=== PATIENT | male | born 1965 | race Hispanic/Latino ===

== ENCOUNTER 2024-02-24 09:44 | Emergency (ER) | payer BC ==
[2024-02-24] MEDS ORDERED: IBUPROFEN 200 MG TAB PO ONE (10:13)
[2024-02-24 10:30] LABS: Absolute Lymphocytes (CBC) 0.5 K/uL (0.7-4.9); Absolute Neutrophil 15.9 K/uL (1.8-8.0); Basophils % 0.1 % (0-1.3); Hemoglobin 12.3 g/dL (13.6-17.9); Lymphocytes % 3.1 % (15.3-44.8); MCH 32.8 pg (27.0-35.0); MCHC 34.3 g/dL (32.0-36.0); MCV 95.6 fL (80-100); MPV 7.4 fL (7.6-11.3); Monocytes % 5.5 % (3.3-12.3); Neutrophils % 91.3 % (41.7-73.7); Platelets 288 thou/uL (152-406); RBC Red Blood Cell Count 3.77 M/uL (4.33-5.43); Red Cell Distribution Width 13.7 % (12.1-15.2)
[2024-02-24 10:34] LABS: Specific Gravity > 1.030 (1.005-1.030); Sqamous Epithelial None Seen /HPF (None Seen); Urine Bacteria None Seen /HPF (<20); Urine Bilirubin NEGATIVE (Negative); Urine Blood Negative (Negative); Urine Clarity Extremely Turbid (Clear); Urine Color Yellow (Yellow); Urine Culture Reflex Order NOT NEEDED; Urine Glucose NEGATIVE (Negative); Urine Ketones NEGATIVE (Negative); Urine Microscopic Reflex YN ORDER UMIC; Urine Mucus 4+ /HPF (None Seen); Urine Nitrite NEGATIVE (Negative); Urine Protein 2+ (Negative); Urine RBC None Seen /HPF (None Seen); Urine Urobilinogen Normal (Normal); Urine WBC <5 /HPF (<5)
[2024-02-24 10:47] LABS: SARS-CoV-2 Antigen CONTROL BLUE LINE VIS/BG OK; SARS-CoV-2 Antigen Rapid Res Negative (Negative)
[2024-02-24 10:51] LABS: Albumin 3.2 g/dL (3.4-5.0); Albumin/Globulin Ratio 0.8 (1.1-1.8); Anion Gap 6.9 mEq/L (5.0-15.0); Globulin 4.1 g/dL (2.3-3.5); Potassium 2.9 mEq/L (3.5-5.1); Protein, Total 7.3 g/dL (6.4-8.2)
--- NOTE | 2024-02-24 11:29 | RAD REPORT ---
EXAMINATION: CT ABDOMEN AND PELVIS WITH CONTRAST CLINICAL INDICATION: Abdominal pain TECHNIQUE: CT abdomen and pelvis was performed, after the administration of 100 cc Isovue-300.. Sagit fly and coronal reconstructions were obtained. One or more of the following dose reduction techniques were used: Automated exposure control, adjustment of the mA and/or kV according to patien t size, and/or iterative reconstruction. Unless otherwise specified, incidental findings do not require dedicated imaging follow-up. [id number]. Oral contrast was not given which limits evaluation of b owel and appendix. COMPARISON: 2014 FINDINGS: The liver, spleen, pancreas, adrenals and kidneys appear unremarkable There is no evidence of diverticulitis Fluid within large and small bowel. Small left and [id number] right inguinal hernias fat. Several gallstones. Gallbladder wall not thickened. : IMPRESSION: Cholelithiasis without evidence of cystitis Fluid within large and small bowel may indicate an enteritis
[2024-02-24 11:55] LABS: Blood Morphology Comment NOT SEEN (NOT SEEN); Platelet Estimate ADEQ; Platelets Clumped FEW PRESENT; White Blood Cell Scan OK (OK)
[2024-02-24] MEDS ORDERED: NA CHLORIDE 0.9% 1,000 ML ONE (12:12)
--- NOTE | 2024-02-24 12:29 | RAD REPORT ---
Procedure: Chest Single View History: Fever Comparison: 2013 The lungs appear clear of acute infiltrate. No significant pleural effusion noted. The heart is mildly enlarged IMPRESSION: No acute abnormality is displayed.
--- NOTE | 2024-02-24 13:22 | EDPHYS ---
Physician Documentation [facility] Name: Pedro Abraham Age: 58 yrs Sex: Male : 1965 Arrival Date: 02/24/2024 Time: 09:44 Bed 20 Private MD: ED Physician Andrey Jennings HPI: 02/23 11:57 This 58 yrs old Male presents to ER via Ambulatory with complaints of Fever. rn 11:57 The patient reports fever, that was measured at 103 degrees Fahrenheit. Onset: The rn symptoms/episode began/occurred 2 day(s) ago. Modifying factors: there are no obvious modifying factors. Associated signs and symptoms: Pertinent positives: abdominal pain, diarrhea, Pertinent negatives: altered mental status, chest pain, skin rash, shortness of breath, sore throat. Severity of symptoms: At their worst the symptoms were mild in the emergency department the symptoms have improved. The patient has experienced a previous episode. Patient reports fever to 103, associated with abdominal pain and diarrhea. Reports has been having increase in belching and heartburn lately. Reports 2 weeks ago felt a sensation in his throat and had difficulty breathing. Seen at [facility] at that time with CT of the neck and abdomen pelvis with no acute findings. States currently no throat or neck pain or difficulty breathing. No productive cough. No chest pain. Does report chills and malaise. No vomiting.. Historical: - Allergies: 10:25 No Known Allergies; kc6 - Home Meds: 10:25 None [Active]; kc6 - PMHx: 10:25 small bowel obstruction; kc6 - PSHx: 10:25 hernia repair; kc6 - Immunization history:: Client reports receiving the 2nd dose of the Covid vaccine. - Infectious Disease History:: Denies. - Social history:: Smoking status: Patient denies any tobacco usage or history of. - Family history:: not pertinent. - Hospitalizations: : No recent hospitalization is reported. ROS: 11:57 Constitutional: Positive for fever and chills Eyes: Negative for injury, pain, redness, rn and discharge, ENT: Negative for injury, pain, and discharge, Neck: Negative for injury, pain, and swelling, Cardiovascular: Negative for chest pain, palpitations, and edema, Respiratory: Negative for shortness of breath, cough, wheezing, and pleuritic chest pain, Abdomen/GI: Positive for abdominal pain with diarrhea Back: Negative for injury and pain, : Negative for injury, bleeding, discharge, and swelling, MS/Extremity: Negative for injury and deformity, Skin: Negative for injury, rash, and discoloration, Neuro: Positive for generalized weakness and malaise Exam: 11:57 Constitutional: This is a well developed, well nourished patient who is awake, alert, rn and in no acute distress. Head/Face: Normocephalic, atraumatic. ENT: Moist mucous membranes, no stridor Neck: Trachea midline, no masses palpated, and no cervical lymphadenopathy. Supple, full range of motion without nuchal rigidity, or vertebral point tenderness. No Meningismus. Cardiovascular: Regular rate and rhythm. No pulse deficits. Respiratory: No increased work of breathing, no retractions or nasal flaring. Abdomen/GI: Soft, mild mid abdominal tenderness without rebound or guarding MS/ Extremity: Pulses equal, no cyanosis. Neurovascular intact. Full, normal range of motion. Equal circumference. Neuro: Awake and alert, GCS 15, oriented to person, place, time, and situation. Cranial nerves II-XII grossly intact. Motor strength 5/5 in all extremities. Sensory grossly intact. Cerebellar exam normal. Vital Signs: 10:04 BP 134 / 81; Pulse 98; Resp 17; Temp 99(O); Pulse Ox 100% on R/A; Weight 86.18 kg; ss Height 5 ft. 2 in. ; Pain 8/10; 11:48 BP 95 / 60; Pulse 70; Resp 16 S; Temp 98.3(O); Pulse Ox 99% on R/A; kc6 12:43 BP 117 / 67; Pulse 65; Resp 16 S; Pulse Ox 97% on R/A; kc6 10:04 Body Mass Index 34.75 (86.18 kg, 157.48 cm) ss 10:04 Pain Scale: Adult ss MDM: 10:00 Patient medically screened. rn 13:20 Differential diagnosis: viral Infection, bacterial infection, URI, bronchitis, rn pneumonia gastroenteritis. Data reviewed: vital signs, nurses notes, lab test result(s), radiologic studies, CT scan, and as a result, I will discharge patient. Counseling: I had a detailed discussion with the patient and/or guardian regarding the historical points, exam findings, and any diagnostic results supporting the discharge/admit diagnosis, lab results, radiology results, the need for outpatient follow up, to return to the emergency department if symptoms worsen or persist or if there are any questions or concerns that arise at home. Special discussion: I discussed with the patient/guardian in detail that at this point there is no indication for admission to the hospital. It is understood, however, that if the symptoms persist or worsen the patient needs to return immediately for re-evaluation. 02/23 10:06 Order name: CBC with Diff; Complete Time: 11:56 rn 02/23 10:06 Order name: CMP; Complete Time: 11:56 rn 02/23 10:06 Order name: Lipase; Complete Time: 11:56 rn 02/23 10:06 Order name: Urinalysis w/ reflexes; Complete Time: 11:56 rn 02/23 10:06 Order name: Flu; Complete Time: 11:56 rn 02/23 10:06 Order name: SARS-COV-2 Antigen Rapid; Complete Time: 11:56 rn 02/23 10:06 Order name: Strep 02/23 10:50 Order name: Throat Culture EDND 02/23 11:56 Order name: CBC Smear Scan; Complete Time: 11:56 EDND 02/23 10:06 Order name: CT Abd/Pelvis - IV Contrast Only; Complete Time: 11:56 rn 02/23 10:06 Order name: XRAY Chest (1 view); Complete Time: 12:56 rn 02/23 10:06 Order name: IV Saline Lock; Complete Time: 10:25 rn 02/23 10:06 Order name: Labs collected and sent; Complete Time: 10:25 rn Administered Medications: 10:25 Drug: Ibuprofen PO 600 mg PO once Route: PO; kc6 12:09 Follow up: Response: No adverse reaction kc6 12:16 Drug: NS 0.9% IV 1000 ml IV at 1000 ml once Route: IV; Rate: 1000 ml; Site: right kc6 antecubital; 13:34 Follow up: Response: No adverse reaction; IV Status: Completed infusion; IV Intake: kc6 1000ml Disposition Summary: 02/24/24 13:21 Discharge Ordered Notes: Location: Home rn Problem: new rn Symptoms: have improved rn Condition: Stable rn Diagnosis - Infectious gastroenteritis and colitis, unspecified rn Followup: rn - With: Private Physician - When: As needed - Reason: Recheck today's complaints, Re-evaluation by your physician Discharge Instructions: - Discharge Summary Sheet rn - Diarrhea, Adult rn Forms: - Medication Reconciliation Form rn - Antibiotic nocturnist physician - Prescription Opioid Use rn - Patient Portal Instructions rn - Leadership Thank You Letter rn Prescriptions: - ondansetron 4 mg Oral Tablet,disintegrating - take 1 tablet ORAL route every 8 hours As needed; 10 tablet; Refills: 0, rn Product Selection Permitted - Augmentin 875-125 mg Oral Tablet - take 1 tablet ORAL route every 12 hours for 10 days; 20 tablet; Refills: 0, rn Product Selection Permitted Signatures: Dispatcher [employer] EDND Andrey Jennings MD MD rn Blanchard, Shelby, RN RN ss Campbell, Kaitlyn, RN RN kc6 Corrections: (The following items were deleted from the chart) 10:07 10:07 Abdomen Pelvis W Con+CT.RAD.BRZ ordered. EDND EDND 12:00 11:57 Constitutional: This is a well developed, well nourished patient who is awake, rn alert, and in no acute distress. Head/Face: Normocephalic, atraumatic. ENT: Moist mucous membranes, no stridor Neck: Trachea midline, no masses palpated, and no cervical lymphadenopathy. Supple, full range of motion without nuchal rigidity, or vertebral point tenderness. No Meningismus. rn
--- NOTE | 2024-02-24 13:22 | ER ---
Nurse's Notes [facility] Name: Pedro Abraham Age: 58 yrs Sex: Male : 1965 Arrival Date: 02/24/2024 Time: 09:44 Bed 20 Private MD: Diagnosis: Infectious gastroenteritis and colitis, unspecified Presentation: 02/23 10:04 Chief complaint: Patient states: Increased belching x 2 weeks, and reports a burp got ss stuck in his throat last night and made him feel like he was unable to breath. Reports similar episode two weeks ago and was seen at a hospital in [place] where he had CT scans and was told everything was negative, given medication to treat hiccups which he reports helps his belching episodes. Pt also reports fever of 103 since last night. Coronavirus screen: Client denies travel out of the [place] in the last 14 days. Ebola Screen: Patient denies exposure to infectious person. Patient denies travel to an Ebola-affected area in the 21 days before illness onset. Initial Sepsis Screen: Does the patient meet any 2 criteria? No. Patient's initial sepsis screen is negative. Does the patient have a suspected source of infection? No. Patient's initial sepsis screen is negative. Risk Assessment: Do you want to hurt yourself or someone else? Patient reports no desire to harm self or others. Onset of symptoms is unknown. 10:04 Method Of Arrival: Ambulatory ss 10:04 Acuity: DANIEL 3 ss Historical: - Allergies: 10:25 No Known Allergies; kc6 - Home Meds: 10:25 None [Active]; kc6 - PMHx: 10:25 small bowel obstruction; kc6 - PSHx: 10:25 hernia repair; kc6 - Immunization history:: Client reports receiving the 2nd dose of the Covid vaccine. - Infectious Disease History:: Denies. - Social history:: Smoking status: Patient denies any tobacco usage or history of. - Family history:: not pertinent. - Hospitalizations: : No recent hospitalization is reported. Screenin:26 [facility] ED Fall Risk Assessment (Adult) History of falling in the last 3 months, kc6 including since admission No falls in past 3 months (0 pts) Confusion or Disorientation No (0 pts) Intoxicated or Sedated No (0 pts) Impaired Gait No (0 pts) Mobility Assist Device Used No (0 pt) Altered Elimination No (0 pt) Score/Fall Risk Level 0 - 2 = Low Risk Oriented to surroundings. Abuse screen: Denies threats or abuse. Denies injuries from another. Nutritional screening: No deficits noted. Tuberculosis screening: No symptoms or risk factors identified. Assessment: 10:26 General: Appears in no apparent distress. comfortable, well groomed, well developed, kc6 Behavior is calm, cooperative, appropriate for age, Reports fever for 12-24 hours. Pain: Denies pain. Neuro: Level of Consciousness is awake, alert, obeys commands, Oriented to person, place, time, situation, Appropriate for age. Cardiovascular: Capillary refill < 3 seconds. Respiratory: Airway is patent Trachea midline Respiratory effort is even, unlabored, Respiratory pattern is regular, symmetrical. GI: Reports diarrhea, indigestion, Patient currently denies abdominal pain, nausea, vomiting. : No signs and/or symptoms were reported regarding the genitourinary system. Urine is clear. EENT: No signs and/or symptoms were reported regarding the EENT system. Derm: No signs and/or symptoms reported regarding the dermatologic system. Skin is intact, is healthy with good turgor, Skin is pink, warm \T\ dry. Musculoskeletal: No signs and/or symptoms reported regarding the musculoskeletal system. Circulation, motion, and sensation intact. Capillary refill < 3 seconds, Range of motion: intact in all extremities. 11:47 Reassessment: Patient appears in no apparent distress at this time. No changes from kc6 previously documented assessment. Patient and/or family updated on plan of care and expected duration. Pain level reassessed. Patient is alert, oriented x 3, equal unlabored respirations, skin warm/dry/pink. 12:43 Reassessment: Patient appears in no apparent distress at this time. No changes from kc6 previously documented assessment. Patient and/or family updated on plan of care and expected duration. Pain level reassessed. Patient is alert, oriented x 3, equal unlabored respirations, skin warm/dry/pink. 13:34 Reassessment: Patient appears in no apparent distress at this time. No changes from kc6 previously documented assessment. Patient and/or family updated on plan of care and expected duration. Pain level reassessed. Patient is alert, oriented x 3, equal unlabored respirations, skin warm/dry/pink. Vital Signs: 10:04 BP 134 / 81; Pulse 98; Resp 17; Temp 99(O); Pulse Ox 100% on R/A; Weight 86.18 kg; ss Height 5 ft. 2 in. ; Pain 8/10; 11:48 BP 95 / 60; Pulse 70; Resp 16 S; Temp 98.3(O); Pulse Ox 99% on R/A; kc6 12:43 BP 117 / 67; Pulse 65; Resp 16 S; Pulse Ox 97% on R/A; kc6 10:04 Body Mass Index 34.75 (86.18 kg, 157.48 cm) ss 10:04 Pain Scale: Adult ss ED Course: 09:49 Patient arrived in ED. mg5 10:00 Andrey Jennings MD is Attending Physician. rn 10:01 Amy Terrell RN is Primary Nurse. kc6 10:04 Arm band placed on right wrist. ss 10:06 Triage completed. ss 10:26 Patient has correct armband on for positive identification. Placed in gown. Bed in low kc6 position. Call light in reach. Side rails up X 1. Pulse ox on. NIBP on. Door closed. Noise minimized. Lights dimmed. Pillow given. 10:26 Inserted saline lock: 20 gauge in right antecubital area, using aseptic technique. kc6 Blood collected. Flushed with 10 mL NS. Patient maintains SpO2 saturation greater than 95% on room air. 11:02 CT Abd/Pelvis - IV Contrast Only In Process Unspecified. EDMS 12:24 XRAY Chest (1 view) In Process Unspecified. EDMS 13:35 No provider procedures requiring assistance completed. IV discontinued, intact, kc6 bleeding controlled, No redness/swelling at site. Pressure dressing applied. Administered Medications: 10:25 Drug: Ibuprofen PO 600 mg PO once Route: PO; kc6 12:09 Follow up: Response: No adverse reaction kc6 12:16 Drug: NS 0.9% IV 1000 ml IV at 1000 ml once Route: IV; Rate: 1000 ml; Site: right kc6 antecubital; 13:34 Follow up: Response: No adverse reaction; IV Status: Completed infusion; IV Intake: kc6 1000ml Medication: 13:35 VIS not applicable for this client. kc6 Intake: 13:34 IV: 1000ml; Total: 1000ml. kc6 Outcome: 13:21 Discharge ordered by . rn 13:35 Discharged to home ambulatory, with significant other, kc6 13:35 Condition: good 13:35 Discharge instructions given to patient, significant other, Instructed on discharge instructions, follow up and referral plans. medication usage, Demonstrated understanding of instructions, follow-up care, medications, Prescriptions given X 2, 13:35 Patient left the ED. kc6 Signatures: Dispatcher [employer] EDMS Andrey Jennings MD MD rn Blanchard, Shelby, RN RN ss Campbell, Kaitlyn, RN RN [id number] Natasha Ngo mg5
[2024-02-25 02:03] VITALS: TEMP 98.3
[2024-02-25 02:05] VITALS: BP 117/67; O2SAT 97
== END 2024-02-24 13:35 | disposition home or self-care (01) ==
LOC: ER 09:44
DX: A09 Infectious gastroenteritis and colitis, unspecified (principal); Z11.52 Encounter for screening for COVID-19
CPT/HCPCS: 87070; 85025; 81001; 36415; 87081; 83690; 80053; 87804 ×2; 74177; 71045; 96360; 99284; 87811; Q9967; J7030

== ENCOUNTER 2025-03-10 16:49 | Emergency (ER) | payer OTHER ==
--- OUTSIDE RECORDS SUMMARY | 2025-03-10 16:57 | XMS REPORT | Continuity of Care Document ---
Author Name Unknown Address [address] [facility]. [address] [place] [address] [facility] Address [address] [facility] [place] [address] Care Team Providers Care Psychology Intern Name Role Phone TEO MULTANI Primary Care Physician CAMILA Cardoso Attending Clinician Unavailable MELISSA RODRIGUEZ Attending Clinician UnavailJOHN Mendez Attending Clinician Unavailable DENIS BRIGGS Attending Clinician Unavailable Osmar DODD, Ayla Maurice Attending Clinician [phone] ROCIO CHONG Attending Clinician Unavailable Henna DODD, Baljit Garduno Attending Clinician [phone] Weston Cali DO Attending Clinician + [phone] Jenifer EDGAR, Cherie Irving Attending Clinician [phone] Christina DODD, Cate Attending Clinician + CATE FITZGERALD Attending Clinician Unavailable LISA DANIEL Attending Clinician Unavailannia Aguirre MD, Joe Salinas Attending Clinician [phone] Carter Anderson MD Attending Clinician [phone] CARTER ANDERSON Attending Clinician Unavailable ATIF TREADWELL Attending Clinician Unavailab enrrique FOFANA, Wili May Attending Clinician [phone] DAYRON DOMINGUEZ Attending Clinician Unavailable Yazmin Pope Attending Clinician [phone] Aga James MD Attending Clinician + [phone] Dayron Dominguez MD Attending Clinician [phone] ALFIE RODRÍGUEZ Attending Clinician Unavailable ALFIE RODRÍGUEZ Attending Clinician Unavailable Alfie Rodríguez MD Attending Clinician [phone] KAL LARIOS Attending Clinician Unavailab LARISSA Hong Attending Clinician Unavailable DR TEO MULTANI Attending Clinician Unavaila maxim [phone] Attending Clinician Unavailable [id number] Attending Clinician Unavailable DR JAMAAL CHURCH Attending Clinician Unaaaron logan [phone] Attending Clinician Unavailable DR SHANIKA ALVARENGA Attending Clinician Unavailable [phone] Attending Clinician Unavailable Kalpesh Attending Clinician Unavailable DR DONA CAMPA Attending Clinician Unavailable Jenifer EDGAR, Cherie Irving Admitting Clinician [phone] CHERIE PERLA Admitting Clinician Unavail able Joe Aguirre MD Admitting Clinician [phone] JOE AGUIRRE Admitting Clinician Unava ilable ATIF TREADWELL Admitting Clinician Unavailab AGA Hankins Admitting Clinician UnavailAga Hernandez MD Admitting Clinician ALFIE RODRÍGUEZ Admitting Clinician Unavailable NERISSA, DR BRUCE Admitting Clinician Israel CHURCH, DR HINTON Admitting Clinician Azael ALVARENGA, DR VOSS Admitting Clinician Unavailable Kalpesh Admitting Clinician Unavailable LOKESH, DR CARCAMO Admitting Clinician Unavailable Payers Payer Name Policy Type Policy Number Effective Date Expirati on Date Source [facility] EXCHANGE OON [id number] 2025 00:00:00 [employer] EXCHANGE OON Exchange [id number] 2025 00:00:00 [facility] Exchange [id number] 2024 00:00:00 [facility] [email or web address] OON [id number] 2024 00:00:[address] [facility] [id number] [place] [employer] (HMO) [id number] 2021 00:00:00 Problems Condition Name Condition Details Condition Category Status Onset Date Resolution Date Last Treatment Date Treating Clinician Comments Source Type 2 diabetes mellitus Type 2 Diabetes Mellitus Problem Active 02-13 00:00: 00 [facility] Gastro-eso phageal reflux disease with esophagiti s Gastro-eso phageal Reflux Disease with Esophagiti s Problem Active 02-13 00:00: 00 [facility] Nausea and vomiting, unspecifie d vomiting type Nausea and vomiting, unspecifie d vomiting type Disease Active 02-05 00:00: 00 Leighann Peña Serum total bilirubin elevated Serum total bilirubin elevated Disease Active 02-04 00:00: 00 Leighann Peña JASPREET (acute kidney injury) JASPREET (acute kidney injury) Disease Active 02-03 00:00: 00 Leighann Peña Dehydratio n Dehydratio n Disease Active 02-03 00:00: 00 Leighann Peña History of esophagiti s History of esophagiti s Disease Active 02-03 00:00: 00 Leighann Peña Chronic gastric ulcer Chronic Gastric Ulcer Problem Active 01-26 00:00: 00 [facility] Ulcer of anastomosi s Ulcer of Anastomosi s Problem Active 01-26 00:00: 00 [facility] Hearing loss of right ear Hearing Loss of Right Ear Problem Active 01-26 00:00: 00 [facility] Prediabete s Prediabete s Problem Active 01-26 00:00: 00 [facility] Increased blood pressure Increased Blood Pressure Problem Active 01-26 00:00: 00 [facility] Mild depression Mild Depression Problem Active 01-26 00:00: 00 [facility] Hypokalemi a Hypokalemi a Disease Active 12-09 00:00: 00 [facility] [place] [facility] Nausea and vomiting Nausea and vomiting Disease Active 12-08 00:00: 00 [facility] Abdominal pain Abdominal pain Disease Active 12-08 00:00: 00 [facility] [place] [facility] Diverticul osis Diverticul osis Disease Active 12-08 00:00: 00 [facility] Intractabl e nausea and vomiting Intractabl e nausea and vomiting Disease Active 12-08 00:00: 00 [facility] Cholelithi asis Cholelithi asis Disease Active 12-08 00:00: 00 [facility] [place] [facility] Gall bladder polyp Gall bladder polyp Disease Active 12-08 00:00: 00 [facility] Gastritis Gastritis Disease Active 12-08 00:00: 00 [facility] [place] [facility] Choking sensation Choking sensation Disease Active 12-08 00:00: 00 [facility] Esophagiti s Esophagiti s Disease Active 12-08 00:00: 00 [facility] Hypokalemi a Hypokalemi a Disease Active 12-03 00:00: 00 [facility] Generalize d abdominal pain Generalize d abdominal pain Disease Active 12-03 00:00: 00 [facility] E44.0 Moderate protein calorie malnutriti on E44.0 Moderate protein calorie malnutriti on Disease Active 8-24 00:00: 00 [facility] Nausea and vomiting, unspecifie d vomiting type Nausea and vomiting, unspecifie d vomiting type Disease Active 01-12 00:00: 00 [facility] Vomiting, unspecifie d vomiting type, unspecifie d whether nausea present Vomiting, unspecifie d vomiting type, unspecifie d whether nausea present Disease Active 01-12 00:00: 00 [facility] Obesity (BMI 30-39.9) Obesity (BMI 30-39.9) Disease Active 01-12 00:00: 00 [facility] Low back strain LUMBAR STRAIN active [id number] SNOMED-CT Problem 2023-01-02 10:59:20 [facility] Urobilinog enuria FINDING OF UROBILINOG EN IN URINE active [id number] SNOMED-CT Problem 2023-01-02 17:49:55 [facility] [id number] PAIN IN RIGHT HIP active [id number] SNOMED-CT Problem 2023-04-22 12:44:45 [facility] Right inguinal pain RIGHT INGUINAL PAIN active [id number] SNOMED-CT Problem 2023-04-22 12:45:10 [facility] History of Past Illness Condition Name Condition Details Condition Category Status Onset Date Resolution Date Last Treatment Date Treating Clinician Comments Source [id number] NONE OF THE TIME 01/02/2023 resolved [id number] SNOMED-CT Problem 2023-01-02 00:00:00 2023-01-02 13:26:20 [facility] Allergies, Adverse Reactions, Alerts Allergy Name Allergy Type Status Severity Reaction(s) Onset Date Inactive Date Treating Clinician Comments Source Food Allergy Active Rash 02-06 00:00: 00 Cod [facility] Iodine Allergy Active Rash 16 00:00: 00 [facility] IODINE DRUG INGREDI Active Rash 7-13 00:00: 00 [facility] SHRIMP DRUG INGREDI Active Rash 13 00:00: 00 [facility] Iodine Propensi ty to adverse reaction s Active Rash 12-03 00:00: 00 [facility] Shrimp Propensi ty to adverse reaction s Active Rash 12-03 00:00: 00 [facility] Shrimp Flavor ([id number]) Allergy to substanc e Active Unknown 8-04 00:00: 00 [facility] No Known Drug Allergie s MA Active UNKNOWN [facility] NO KNOWN ALLERGIE S Drug Class Active [facility] Social History Social Habit Start Date Stop Date Quantity Comments Source Gender identity Daydayomar Gal[facility] Sexual orientation [facility] Alcoholic beverage intake 2025-02-06 00:00:00 2025-02-06 00:00:00 Lifetime non-drinker (finding) [facility] History of Social function 2025-02-05 00:00:00 2025-02-05 00:00:00 [facility] Sex 2024-12-08 17:28:38 2024-12-08 17:28:38 Male (finding) [facility] Tobacco use and exposure 2024-12-08 00:00:00 2024-12-08 00:00:00 Smokeless tobacco non-user [facility] Sex assigned at 1965 00:00:00 1965 00:00:00 [facility] Smoking Status Start Date Stop Date Source Never Smoker [facility] Tobacco smoking consumption unknown [facility] Medications Ordered Medication Name Filled Medication Name Start Date Stop Date Current Medication? Ordering Clinician Indication Dosage Frequency Signature (SIG) Comments Components Source promethazin e (Phenergan) 25 MG suppository promethazin e (Phenergan) 25 MG suppository 9- 00:00: 00 02-26 23:59 :00 No 25mg [id number] 3D Insert 1 suppositor y into the rectum 3 times a day as needed for nausea or vomiting for up to 7 days. Leigahnn Peña ondansetron (Zofran) 4 MG tablet ondansetron (Zofran) 4 MG tablet 02-19 00:00: 00 02-26 23:59 :00 No 4mg Q8H Take 1 tablet by mouth every 8 hours if needed for nausea or vomiting for up to 7 days. Leighann Peña enoxaparin (Lovenox) syringe 40 mg enoxaparin (Lovenox) syringe 40 mg 02-07 09:00: 00 Yes 40mg QD 40 mg, Subcutaneo us, Every 24 hours scheduled, First dose on Wed02/07/25 at 0900, Phase II/On Unit, Caprini Score: 3 (Moderate Risk) , Indication s: VTE Prophylaxi s Leighann [facility] sodium chloride (NS) 0.9 % flush 10 mL sodium chloride (NS) 0.9 % flush 10 mL 02-06 15:45: 00 Yes 10mL Q12H 10 mL, Intravenou s, Every 12 hours, First dose on Wed02/06/25 at 1545, Phase II/On Unit, Administer at least once every 12 hours Leighann Galicia [facility] sodium chloride (NS) 0.9 % flush 10 mL sodium chloride (NS) 0.9 % flush 10 mL 02-06 15:36: 31 Yes 10mL Leighann [facility] acetaZOLAMI DE (Diamox) injection 250 mg acetaZOLAMI DE (Diamox) injection 250 mg 02-06 11:15: 00 02-06 11:04 :00 No 250mg 250 mg, Intravenou s, Once, On Wed02/06/25 at 1115, For 1 dose, Recovery (only) Leighann Galicia Epic fentaNYL (Sublimaze) injection 50 mcg fentaNYL (Sublimaze) injection 50 mcg 02-06 10:36: 19 02-06 12:18 :32 No 50ug 50 mcg, Intravenou s, Every 5 min PRN, severe pain (7-10), Starting on Wed02/06/25 at 1036, For 4 doses, Recovery (only), Hold for respirator y rate of 8 or less. Leighann Galicia Epic morphine PF injection 2 mg morphine PF injection 2 mg 02-06 10:36: 19 02-06 12:18 :32 No 2mg 2 mg, Intravenou s, Every 5 min PRN, moderate pain (4-6), Starting on Wed02/06/25 at 1036, For 5 doses, Recovery (only), Hold for respirator y rate of 8 or less. Leighann Peña hydrALAZINE injection 10 mg hydrALAZINE injection 10 mg 02-06 10:36: 19 02-06 12:18 :32 No 10mg 10 mg, Intravenou s, Every 20 min PRN, high blood pressure, Systolic blood pressure greater than 160 mmHg and/or Diastolic blood pressure greater than 90 mmHg. Hold is Heart Rate greater than 100 beats per minute., Starting on Wed02/06/25 at 1036, For 2 doses, Recovery (only) Leighann Peña famotidine (Pepcid) tablet 20 mg famotidine (Pepcid) tablet 20 mg 02-06 07:45: 00 02-06 07:57 :00 No 20mg 20 mg, Oral, Once, On Wed02/06/25 at 0745, For 1 dose, Preprocedu re, DO NOT GIVE IF PATIENT HAS RECEIVED H2 ANTAGONIST /FAMOTIDIN E IN THE PAST SIX HOURS. Anesthesia Pre-op Leighann [facility] Epic acetaminoph en (Tylenol) tablet 1,000 mg acetaminoph en (Tylenol) tablet 1,000 mg 02-06 07:45: 00 02-06 07:57 :00 No 1000mg 1,000 mg, Oral, Once, On Wed02/06/25 at 0745, For 1 dose, Preprocedu re, DO NOT GIVE IF PATIENT HAS RECEIVED ACETAMINOP HEN IN THE PAST SIX HOURS. Maybe administer ed with midazolam. Max acetaminop hen from all sources = 4,000 mg in 24 hours. Anesthesia Pre-op Leighann Galicia Epic pantoprazol e (ProtoNix) 40 MG EC tablet pantoprazol e (ProtoNix) 40 MG EC tablet 02-06 00:00: 00 03-09 23:59 :00 No 40mg Q.5D Take 1 tablet by mouth in the morning and 1 tablet in the evening. Leighann Peña ondansetron (Zofran) 4 MG tablet ondansetron (Zofran) 4 MG tablet 02-06 00:00: 00 02-17 23:59 :00 No 4mg Q8H Take 1 tablet by mouth every 8 hours if needed for nausea or vomiting for up to 10 days. Leighann Peña docusate sodium (Colace) 100 MG capsule docusate sodium (Colace) 100 MG capsule 02-06 00:00: 00 02-17 23:59 :00 No 100mg Q.5D Take 1 capsule by mouth in the morning and 1 capsule in the evening. Do all this for 10 days. Leighann Peña traMADol (Ultram) 50 MG tablet traMADol (Ultram) 50 MG tablet 02-06 00:00: 00 02-13 23:59 :00 No [id number] 50mg Q6H Take 1 tablet by mouth every 6 hours if needed for moderate pain (4-6) Leighann Peña pantoprazol e 40 mg in sodium chloride (PF) 0.9 % 10 mL pantoprazol e 40 mg in sodium chloride (PF) 0.9 % 10 mL 02-06 00:00: 00 02-06 00:00 :00 No 40mg Q.5D Infuse 40 mg over 2 minutes into a venous catheter in the morning and 40 mg before bedtime. Do all this for 10 days. Leighann Peña sincalide (Kinevac) injection 1.5 mcg sincalide (Kinevac) injection 1.5 mcg 02-05 15:53: 31 02-05 15:15 :00 No .02ug/k g 1.5 mcg (rounded from 1.496 mcg = 0.02 mcg/kg ?74.8 kg Order-spec [facility] weight), Intravenou s, Once in imaging, Starting on Wed02/05/25 at 1553, For 1 dose, IV push over 30-60 seconds or infuse via syringe pump over 30 minutes. For pancreatic testing, infuse over 30 minutes. Leighann Peña technetium Tc-99m mebrofenin (Choletec) radio-isoto pe injection 6 millicurie technetium Tc-99m mebrofenin (Choletec) radio-isoto pe injection 6 millicurie 02-05 14:00: 00 02-05 14:00 :00 No 6mCi 6 millicurie , Intravenou s, Once, On Wed02/05/25 at 1400, For 1 dose Leighann Peña potassium chloride CR (Klor-Con M20) ER tablet 40 mEq potassium chloride CR (Klor-Con M20) ER tablet 40 mEq 02-04 11:45: 00 02-04 11:58 :00 No 40meq 40 mEq, Oral, Once, On Wed02/04/25 at 1145, For 1 dose, For patients able to take medication s orally or via feeding tube >/= 14 Lithuanian, may dissolve each 20 mEq tablet in 4 oz of water. Allow about 2 minutes for the tablets to disintegra te. Stir before giving to prepare slurry and administer . Please exclude patient's with feeding tube less than 14 Lithuanian (Dobhoff, J-tube, etc) and pediatric and patients Do not crush or chew. Leighann Peña metoclopram christen (Reglan) injection 10 mg metoclopram christen (Reglan) injection 10 mg 02-04 11:30: 00 Yes 10mg 10 mg, Intravenou s, 3 times daily before meals, First dose on Wed02/04/25 at 1130 Leighann Peña ondansetron (Zofran) injection 8 mg ondansetron (Zofran) injection 8 mg 02-04 11:30: 00 Yes 8mg 8 mg, Intravenou s, 3 times daily before meals, First dose on Wed02/04/25 at 1130 Leighann Peña potassium chloride IVPB 10 mEq potassium chloride IVPB 10 mEq 02-04 07:15: 00 02-04 11:14 :00 No 10meq Q1H 10 mEq, Intravenou s, at 100 mL/hr, Administer over 1 Hours, Every 1 hour, First dose on Wed02/04/25 at 0715, For 4 doses, Total dose: 40 mEq. Leighann Peña pantoprazol e (ProtoNix) 40 mg in sodium chloride (PF) 0.9 % 10 mL IVP pantoprazol e (ProtoNix) 40 mg in sodium chloride (PF) 0.9 % 10 mL IVP 02-03 21:00: 00 Yes 40mg Q.5D 40 mg, Intravenou s, Every 12 hours scheduled, First dose on 02/03/25 at 2100, Until Discontinu ed Leighann Peña metoclopram christen (Reglan) injection 10 mg metoclopram christen (Reglan) injection 10 mg 02-03 16:30: 00 Yes 10mg 10 mg, Intravenou s, 3 times daily before meals, First dose on Wed02/03/25 at 1630 Leighann Peña escitalopra m (Lexapro) tablet 10 mg escitalopra m (Lexapro) tablet 10 mg 02-03 15:50: 00 Yes 10mg QD 10 mg, Oral, Daily, First dose on 02/03/25 at 1550 Leighann Peña alum & mag hydroxide-s imeth (Mylanta) 200-200-20 MG/5ML oral suspension 30 mL alum & mag hydroxide-s imeth (Mylanta) 200-200-20 MG/5ML oral suspension 30 mL 02-03 15:15: 00 02-03 15:25 :00 No 30mL 30 mL, Oral, Once, On 02/03/25 at 1515, For 1 dose Leighann Peña lidocaine (Xylocaine) 2 % mouth solution 15 mL lidocaine (Xylocaine) 2 % mouth solution 15 mL 02-03 15:15: 00 02-03 15:25 :00 No 15mL 15 mL, Oral, Once, On 02/03/25 at 1515, For 1 dose Leighann Peña hydrALAZINE injection 10 mg hydrALAZINE injection 10 mg 02-03 15:02: 45 Yes 10mg Q6H 10 mg, Intravenou s, Every 6 hours PRN, high blood pressure, SBP>170, Starting on 02/03/25 at 1502 Leighann Peña traMADol (Ultram) tablet 50 mg traMADol (Ultram) tablet 50 mg 02-03 15:02: 45 Yes 50mg Q6H 50 mg, Oral, Every 6 hours PRN, moderate pain (4-6), Starting on 02/03/25 at 1502, Max of 300 mg daily for patients > 75 years of age. Leighann Peña ondansetron (Zofran) injection 4 mg ondansetron (Zofran) injection 4 mg 02-03 15:02: 45 Yes 4mg Q6H 4 mg, Intravenou s, Every 6 hours PRN, nausea, vomiting, Starting on 02/03/25 at 1502 Leighann Peña acetaminoph en (Tylenol) tablet 650 mg acetaminoph en (Tylenol) tablet 650 mg 02-03 15:02: 45 Yes 650mg Q6H 650 mg, Oral, Every 6 hours PRN, mild pain (1-3), fever, Starting on 02/03/25 at 1502, Max acetaminop hen = 4000mg/day (4gm/day) [facility] sodium chloride 0.9 % infusion sodium chloride 0.9 % infusion 02-03 15:00: 00 02-06 20:06 :18 No 100mL/h 100 mL/hr, Intravenou s, Continuous , Starting on Wed02/03/25 at 1500 Leighann Peña enoxaparin (Lovenox) syringe 40 mg enoxaparin (Lovenox) syringe 40 mg 02-03 15:00: 00 02-06 15:41 :26 No 40mg QD 40 mg, Subcutaneo us, Every 24 hours scheduled, First dose on Wed02/03/25 at 1500, KEVIN Score: 4+ (High Risk), Indication s: VTE Prophylaxi s Leighann [facility] sodium chloride 0.9 % bolus 500 mL [id number] 02-03 12:40: 00 02-03 18:04 :00 No 500mL 500 mL, Intravenou s, at 1,000 mL/hr, Administer over 30 Minutes, Once, On 02/03/25 at 1240, For 1 dose [facility] ondansetron (Zofran) injection 4 mg ondansetron (Zofran) injection 4 mg 02-03 12:10: 00 02-03 12:11 :00 No 4mg 4 mg, Intravenou s, Once, On 02/03/25 at 1210, For 1 dose [facility] iohexol (OMNIPaque) 350 MG/ML injection 75 mL iohexol (OMNIPaque) 350 MG/ML injection 75 mL 02-03 12:03: 52 02-03 11:54 :00 No 75mL 75 mL, Intravenou s, Once in imaging, Starting on 02/03/25 at 1203, For 1 dose [facility] potassium chloride IVPB 10 mEq potassium chloride IVPB 10 mEq 02-03 11:50: 00 02-03 16:55 :00 No 10meq Q1H 10 mEq, Intravenou s, at 100 mL/hr, Administer over 1 Hours, Every 1 hour, First dose on 02/03/25 at 1150, For 4 doses, Central-li ne infusion highly recommende d for infusions >10 mEq/hour Memkatie [facility] Epic magnesium sulfate in D5W IVPB 1 g magnesium sulfate in D5W IVPB 1 g 02-03 11:50: 00 02-03 13:17 :00 No 1g 1 g, Intravenou s, at 100 mL/hr, Administer over 1 Hours, Once, On 02/03/25 at 1150, For 1 dose Leighann Galicia Epic ondansetron (Zofran) injection 4 mg ondansetron (Zofran) injection 4 mg 02-03 10:45: 00 02-03 10:58 :00 No 4mg 4 mg, Intravenou s, Once, On 02/03/25 at 1045, For 1 dose, Administer IVP. Leighann Gal[facility] famotidine (Pepcid) injection 20 mg [id number] 9-13 10:45: 00 02-03 11:00 :00 No 20mg 20 mg, Intravenou s, Administer over 2 Minutes, Once, On 02/03/25 at 1045, For 1 dose Leighann Peña sodium chloride 0.9 % bolus 1,000 mL [id number] 02-03 10:45: 00 02-03 11:58 :00 No 1000mL 1,000 mL, Intravenou s, at 1,000 mL/hr, Administer over 1 Hours, Once, On 02/03/25 at 1045, For 1 dose Leighann Peña escitalopra m (Lexapro) 10 MG tablet escitalopra m (Lexapro) 10 MG tablet -05 00:00: 00 Yes 10mg QD Take 10 mg by mouth 1 time each day. Leighann Peña baclofen (Lioresal) 5 MG tablet baclofen (Lioresal) 5 MG tablet 12-10 00:00: 00 01-09 23:59 :00 No 5mg Take 1 tablet by mouth at bedtime. Leighann Peña benzocaine- menthol (Chlorasept ic) 6-10 MG lozenge benzocaine- menthol (Chlorasept ic) 6-10 MG lozenge 12-10 00:00: 00 01-09 23:59 :00 No 1{lozen ge} Dissolve 1 lozenge in the mouth every 2 hours if needed for sore throat. Leighann Peña benzocaine- menthol (Chlorasept ic) 6-10 MG lozenge 1 lozenge benzocaine- menthol (Chlorasept ic) 6-10 MG lozenge 1 lozenge 12-09 23:10: 53 Yes 1{lozen ge} 1 lozenge, Mouth/Thro at, Every 2 hour PRN, sore throat, Starting on 12/09/24 at 2310 Leighann Peña barium sulfate (Barosperse ) 60 % suspension 150 mL barium sulfate (Barosperse ) 60 % suspension 150 mL 12-09 11:52: 34 12-09 11:54 :00 No 150mL 150 mL, Oral, Once in imaging, Starting on 12/09/24 at 1152, For 1 dose Leighann Peña enoxaparin (Lovenox) syringe 40 mg enoxaparin (Lovenox) syringe 40 mg 12-09 11:45: 00 Yes 40mg QD 40 mg, Subcutaneo us, Daily, First dose on Wed12/09/24 at 1145 Leighann Peña Barium Sulfate 98 % reconstitut ed suspension 150 mL Barium Sulfate 98 % reconstitut ed suspension 150 mL 12-09 11:00: 00 12-09 11:55 :00 No 150mL 150 mL, Oral, Once, On Wed12/09/24 at 1100, For 1 dose Leighann Peña pantoprazol e (ProtoNix) 40 mg in sodium chloride (PF) 0.9 % 10 mL IVP pantoprazol e (ProtoNix) 40 mg in sodium chloride (PF) 0.9 % 10 mL IVP 12-09 09:00: 00 Yes 40mg Q.5D 40 mg, Intravenou s, Every 12 hours scheduled, First dose (after last modificati on) on Wed12/09/24 at 0900, Until Discontinu ed Leighann Peña potassium chloride IVPB 10 mEq potassium chloride IVPB 10 mEq 12-09 08:15: 00 12-09 14:09 :00 No 10meq Q1H 10 mEq, Intravenou s, at 100 mL/hr, Administer over 1 Hours, Every 1 hour, First dose on Wed12/09/24 at 0815, For 4 doses, Total dose: 40 mEq. Leighann Peña baclofen (Lioresal) tablet 5 mg baclofen (Lioresal) tablet 5 mg 12-08 23:45: 00 Yes 5mg 5 mg, Oral, Nightly, First dose on Wed12/08/24 at 2345 Leighann Peña sucralfate (Carafate) 1 g tablet sucralfate (Carafate) 1 g tablet 12-08 23:35: 07 Yes 1g Q.5D Take 1 g by mouth in the morning and 1 g in the evening. Take after meals. Leighann Peña dicyclomine (Bentyl) capsule 20 mg dicyclomine (Bentyl) capsule 20 mg 12-08 23:34: 55 Yes 20mg Q.25D 20 mg, Oral, 4 times daily PRN, Abdominal pain, Starting on Wed12/08/24 at 2334 Leighann Peña chlorproMAZ INE (Thorazine) tablet 12.5 mg chlorproMAZ INE (Thorazine) tablet 12.5 mg 12-08 23:34: 51 Yes 12.5mg Leighann Peña dextrose 5 % and sodium chloride 0.9 % infusion dextrose 5 % and sodium chloride 0.9 % infusion 12-08 22:05: 00 Yes 100mL/h 100 mL/hr, Intravenou s, Continuous , Starting on Wed12/08/24 at 2205 Leighann Peña docusate sodium (Colace) capsule 100 mg docusate sodium (Colace) capsule 100 mg 12-08 22:05: 00 Yes 100mg Q.5D 100 mg, Oral, 2 times daily, First dose on Wed12/08/24 at 2205, Stool softener. Hold for loose stools. Leighann Peña sodium chloride (NS) 0.9 % flush 10 mL sodium chloride (NS) 0.9 % flush 10 mL 12-08 22:05: 00 Yes 10mL Q12H 10 mL, Intravenou s, Every 12 hours, First dose on Wed12/08/24 at 2205, Administer at least once every 12 hours Leighann Peña HYDROcodone -acetaminop hen ([place]) 5-325 MG per tablet 1 tablet HYDROcodone -acetaminop hen ([place]) 5-325 MG per tablet 1 tablet 12-08 22:03: 24 Yes 1{tbl} Q6H Leighann Peña morphine PF injection 2 mg morphine PF injection 2 mg 12-08 22:03: 24 Yes 2mg Q4H Leighann Peña melatonin tablet 3 mg melatonin tablet 3 mg 12-08 22:03: 24 Yes 3mg QD Leighann Peña acetaminoph en (Tylenol) tablet 650 mg acetaminoph en (Tylenol) tablet 650 mg 12-08 22:03: 24 Yes 650mg Q6H Leighann Peña glucagon injection 1 mg glucagon injection 1 mg 12-08 22:03: 23 Yes 1mg Leighann Gal[facility] Epic dextrose 50 % solution 25 g dextrose 50 % solution 25 g 12-08 22:03: 23 Yes 25g Leighann Galicia Epic dextrose 50 % solution 12.5 g dextrose 50 % solution 12.5 g 12-08 22:03: 23 Yes 12.5g Leighann Gal[facility] Epic ondansetron (Zofran) injection 4 mg ondansetron (Zofran) injection 4 mg 12-08 22:03: 23 Yes 4mg Q8H Leighann Galicia Epic polyethylen e glycol (PEG) 3350 (Miralax) packet 17 g polyethylen e glycol (PEG) 3350 (Miralax) packet 17 g 12-08 22:03: 23 Yes 112 17g Q24H Leighann Galicia Epic naloxone (Narcan) injection 0.04 mg naloxone (Narcan) injection 0.04 mg 12-08 22:03: 23 Yes .04mg Leighann Galicia Epic sodium chloride 0.9 % infusion 250 mL sodium chloride 0.9 % infusion 250 mL 12-08 22:03: 23 Yes 250mL Leighann Galicia Epic sodium chloride (NS) 0.9 % flush 10 mL sodium chloride (NS) 0.9 % flush 10 mL 12-08 22:03: 23 Yes 10mL 10 mL, Intravenou s, As needed, line care, Line Flush, Starting on Wed12/08/24 at 2203 Leighann ashley Grayson Epic iohexol (OMNIPaque) 350 MG/ML injection 85 mL iohexol (OMNIPaque) 350 MG/ML injection 85 mL 12-08 19:53: 53 12-08 19:54 :00 No 85mL 85 mL, Intravenou s, Once in imaging, Starting on Wed12/08/24 at 1953, For 1 dose Leighann Galicia Epic sodium chloride 0.9 % bolus 1,000 mL [id number] 12-08 18:25: 00 12-08 21:43 :00 No 1000mL 1,000 mL, Intravenou s, at 2,000 mL/hr, Administer over 30 Minutes, Once, On Wed12/08/24 at 1825, For 1 dose Leighann Peña morphine PF injection 4 mg morphine PF injection 4 mg 12-08 17:55: 00 12-08 20:03 :00 No 4mg 4 mg, Intravenou s, Once, On Wed12/08/24 at 1755, For 1 dose Leighann Galicia Epic ondansetron (Zofran) injection 4 mg ondansetron (Zofran) injection 4 mg 12-08 17:55: 00 12-08 19:56 :00 No 4mg 4 mg, Intravenou s, Once, On Wed12/08/24 at 1755, For 1 dose, Administer IVP. Leighann Galicia Epic famotidine (PF) (Pepcid) injection 40 mg famotidine (PF) (Pepcid) injection 40 mg 12-08 17:55: 00 12-08 19:59 :00 No 40mg 40 mg, Intravenou s, Administer over 2 Minutes, Once, On Wed12/08/24 at 1755, For 1 dose, Administer over at least 2 minutes Leighann Peña sodium chloride (NS) 0.9 % flush 10 mL sodium chloride (NS) 0.9 % flush 10 mL 12-08 17:49: 19 Yes 10mL [Order 1 Start] Name: Insert peripheral IV Signed Summary: Once, On Wed12/08/24 at 1750, For 1 occurrence [Order 1 End] [Order 2 Start] Name: Saline lock IV Signed Summary: Once, On Wed12/08/24 at 1750, For 1 occurrence [Order 2 End] [Order 3 Start] Name: sodium chloride (NS) 0.9 % flush 10 mL Signed Summary: 10 mL, Intravenou s, As needed, line care, Starting on Wed12/08/24 at 1749 [Order 3 End] Leighann Peña pantoprazol e (ProtoNix) 40 MG EC tablet pantoprazol e (ProtoNix) 40 MG EC tablet 12-04 00:00: 00 02-06 00:00 :00 No 40mg Take 40 mg by mouth in the morning. Take before meals. Leighann Galicia Epic KCL (KLOR-CON M20) tablet 40 mEq 12-03 19:00: 00 12-03 19:09 :00 No 40meq 40 mEq, Oral, ONCE, 1 dose, On Wed12/03/24 at 1400, Routine [facility] iopamidol (ISOVUE 370-500 mL) injection 80 mL 12-03 17:54: 00 12-03 17:54 :00 No [id number] 80mL 80 mL, Intravenou s, ONCE, 1 dose, On Wed12/03/24 at 1315, Routine [facility] ondansetron (ZOFRAN (PF)) injection 4 mg 12-03 17:30: 00 12-03 17:32 :00 No 4mg 4 mg, Slow IV Push, ONCE, 1 dose, On Wed12/03/24 at 1230, Administer over 2-5 Minutes, 2 mL [facility] maalox/diph enhydrAMINE :lidocaine2 %viscous 1:1:1: suspension (COMPOUNDED ) 12-03 17:30: 00 12-03 17:31 :00 No 15mL 15 mL, Oral, ONCE, 1 dose, On Wed12/03/24 at 1230, Routine [facility] famotidine (PEPCID (PF)) 20 mg in NaCl 0.9% (NS) 5 mL IV push 12-03 17:30: 00 12-03 17:32 :00 No 20mg 20 mg, Intravenou s, ONCE, 1 dose, On Wed12/03/24 at 1230, Administer over 2 Minutes, 5 mL [facility] it[facility] dicyclomine (Bentyl) 20 MG tablet dicyclomine (Bentyl) 20 MG tablet 12-03 00:00: 00 02-03 00:00 :00 No 20mg Q.25D Take 20 mg by mouth 4 times a day as needed (Abdominal pain). Leighann Galicia Epic baclofen (Lioresal) 5 MG tablet baclofen (Lioresal) 5 MG tablet 5-25 00:00: 00 12-10 00:00 :00 No 5mg QD Take 5 mg by mouth 1 time each day. Leighann Peña ondansetron (Zofran) 4 MG tablet ondansetron (Zofran) 4 MG tablet 2023-05 1- 00:00: 00 02-06 00:00 :00 No 1{tbl} [id number] 3D Take 1 tablet by mouth every 6 hours during the day. Leighann Peña chlorproMAZ INE (Thorazine) 10 MG tablet chlorproMAZ INE (Thorazine) 10 MG tablet 2023-05 014 00:00: 00 02-03 00:00 :00 No 10mg Take 10 mg by mouth if needed for nausea (hiccups). Leighann Peña KCL (KLOR-CON M20) tablet 40 mEq 02-14 18:15: 02-14 18:15 :00 No 40meq 40 mEq, Oral, ONCE, 1 dose, On Wed02/15/24 at 1315, [facility] iopamidol (ISOVUE 370-500 mL) injection 80 mL 02-14 17:15: 00 02-14 17:15 :00 No [id number] 80mL 80 mL, Intravenou s, ONCE, 1 dose, On Wed02/15/24 at 1215, Routine [facility] NaCl 0.9% (NS) bolus infusion 1,000 mL 02-14 16:00: 00 02-14 17:05 :00 No 1000mL at 999 mL/hr, 1,000 mL, IV Infusion, ONCE, 1 dose, On Wed02/15/24 at 1100, [facility] ondansetron (ZOFRAN (PF)) injection 4 mg 02-14 15:30: 00 02-14 15:37 :00 No 4mg 4 mg, Slow IV Push, ONCE, 1 dose, On Wed02/15/24 at 1030, [facility] chlorproMAZ INE (THORAZINE) tablet 10 mg 01-14 07:41: 43 Yes 10mg 10 mg, Oral, Q6HPRN, Starting on 01/15/24 at 0241, Until Discontinu ed, Routine, Hiccups [facility] chlorproMAZ INE 10 mg tablet 01-14 00:00: 00 Yes [id number] 10mg Take 1 tablet by mouth every 6 (six) hours as needed for Hiccups. [facility] metoclopram christen HCl (REGLAN) tablet 10 mg 01-13 22:37: 19 01-14 07:41 :58 No 10mg 10 mg, Oral, Q8HPRN, Starting on Wed01/14/24 at 1737, Until 01/15/24 at 0241, Routine, Gastroesop hageal reflux, Hiccups [facility] diatrizoate marcus-diatriz oat sod (GASTROGRAF IN) 66-10 % oral solution 120 mL 01-13 17:45: 00 01-13 17:45 :00 No [id number] 120mL 120 mL, Oral, ONCE, 1 dose, On Wed01/14/24 at 1245, Routine [facility] acetaminoph en (OFIRMEV) IV piggyback 1,000 mg 01-13 16:30: 00 01-13 18:03 :00 No 1000mg 1,000 mg, IV Piggyback, at 400 mL/hr Administer over 15 Minutes, ONCE, 1 dose, On Wed01/14/24 at 1130, Routine, Is the patient strict NPO and unable to tolerate oral medication s? Yes [facility] D5W-LR WITH ADDITIVES 01-13 15:45: 00 Yes IV Infusion, CONTINUOUS , Starting on Wed01/14/24 at 1045, Until Discontinu ed, 1,000 mL, at 100 mL/hr [facility] D5W-LR WITH ADDITIVES 01-13 14:45: 00 01-13 15:36 :51 No IV Infusion, CONTINUOUS , Starting on Wed01/14/24 at 0945, Until Wed01/14/24 at 1036, 1,000 mL, at 75 mL/hr [facility] enoxaparin (LOVENOX) injection 40 mg 01-12 22:00: 00 Yes [id number] 40mg 40 mg, Subcutaneo us, DAILY, First dose on Wed01/13/24 at 1700, Until Discontinu ed, Routine Univers [facility] lactated ringers IV infusion 1,000 mL 01-12 20:30: 00 01-13 13:39 :32 No [id number] 1000mL at 125 mL/hr, 1,000 mL, IV Infusion, CONTINUOUS , Starting on Wed01/13/24 at 1530, Until Wed01/14/24 at 0839, Routine [facility] potassium chloride in water (KCL) 20 mEq/100 mL RTU IVPB 20 mEq 01-12 20:15: 00 01-13 01:33 :00 No [id number] 20meq 20 mEq, IV Piggyback, ONCE, 1 dose, On Wed01/13/24 at 1515, 100 mL [facility] pantoprazol e (PROTONIX) injection 40 mg 01-12 19:15: 00 Yes [id number] 40mg 40 mg, Slow IV Push, Q24H, First dose on Wed01/13/24 at 1415, Until Discontinu ed [facility] NaCl 0.9% (NS) bolus infusion 1,000 mL 01-12 18:15: 00 01-12 23:24 :17 No [id number] 1000mL at 999 mL/hr, 1,000 mL, IV Infusion, ONCE, 1 dose, On Wed01/13/24 at 1315, KYM [facility] ondansetron (ZOFRAN (PF)) injection 4 mg 01-12 17:59: 57 Yes [id number] 4mg 4 mg, Slow IV Push, Q6HPRN, Starting on Wed01/13/24 at 1259, Until Discontinu ed, Routine, Nausea and Vomiting (N/V) [facility] morpHINE (4 mg/mL) injection 4 mg 01-12 17:59: 56 01-13 15:36 :57 No [id number] 4mg 4 mg, Slow IV Push, Q4HPRN, Starting on Wed01/13/24 at 1259, Until Wed01/14/24 at 1036, Routine, Pain (scale 7-10) [facility] ketorolac (TORADOL) injection 15 mg 01-12 17:15: 00 01-12 17:26 :00 No [id number] 15mg 15 mg, Slow IV Push, ONCE, 1 dose, On Wed01/13/24 at 1215, [facility] pantoprazol e (PROTONIX) injection 40 mg 01-12 16:30: 00 01-12 17:28 :00 No [id number] 40mg 40 mg, Slow IV Push, ONCE, 1 dose, On Wed01/13/24 at 1130 [facility] iopamidol (ISOVUE 370-500 mL) injection 80 mL 01-12 16:15: 00 01-12 15:21 :00 No [id number] 80mL 80 mL, Intravenou s, ONCE, 1 dose, On Wed01/13/24 at 1115, Routine [facility] metoclopram christen HCl (REGLAN) injection 10 mg 01-12 15:45: 00 01-12 17:25 :00 No [id number] 10mg 10 mg, Slow IV Push, ONCE, 1 dose, On Wed01/13/24 at 1045, KYM [facility] ondansetron (ZOFRAN (PF)) injection 4 mg 01-12 15:30: 00 01-12 17:23 :00 No [id number] 4mg 4 mg, Slow IV Push, ONCE, 1 dose, On Wed01/13/24 at 1030, [facility] NaCl 0.9% (NS) bolus infusion 1,000 mL 01-12 15:30: 00 01-12 18:56 :00 No [id number] 1000mL at 999 mL/hr, 1,000 mL, IV Infusion, ONCE, 1 dose, On Yasmeen 01/13/24 at 1030[facility]hen[facility] (BENADRYL) injection 25 mg 12-26 20:00: 00 12-26 20:00 :00 No 25mg 25 mg, Slow IV Push, ONCE, 1 dose, On Wed12/27/23 at 1500, STAT [facility] metoclopram christen HCl (REGLAN) injection 10 mg 12-26 20:00: 00 12-26 20:01 :00 No 10mg 10 mg, Slow IV Push, ONCE, 1 dose, On Wed12/27/23 at 1500, [facility] chlorproMAZ INE (THORAZINE) 25 mg in NaCl 0.9% (NS) 500 mL IV infusion 12-26 17:45: 00 12-26 19:14 :00 No [id number] 25mg 25 mg, IV Piggyback, ONCE, 1 dose, On Wed12/27/23 at 1245, 500 mL [facility] magnesium sulfate in water 2 gram/50 mL (4 %) infusion 2 g 12-26 17:15: 00 12-26 17:46 :00 No 2g 2 g, IV Piggyback, Administer over 60 Minutes, ONCE, 1 dose, On Wed12/27/23 at 1215, Routine [facility] ketorolac (TORADOL) injection 15 mg 12-26 16:30: 00 12-26 16:49 :00 No 15mg 15 mg, Slow IV Push, ONCE, 1 dose, On Wed12/27/23 at 1130, Routine [facility] NaCl 0.9% (NS) bolus infusion 1,000 mL 12-26 16:30: 00 12-26 18:43 :00 No 1000mL at 999 mL/hr, 1,000 mL, IV Infusion, ONCE, 1 dose, On Wed12/27/23 at 1130, [facility] famotidine (PEPCID (PF)) injection 20 mg 12-26 15:45: 00 12-26 16:49 :00 No 20mg 20 mg, Slow IV Push, ONCE, 1 dose, On Wed12/27/23 at 1045, [facility] ondansetron (ZOFRAN (PF)) injection 4 mg 12-26 15:45: 00 12-26 16:48 :00 No 4mg 4 mg, Slow IV Push, ONCE, 1 dose, On Wed12/27/23 at 1045, [facility] metoclopram christen HCl 10 mg tablet 12-26 00:00: 00 Yes [id number] 10mg Take 1 tablet by mouth every 8 (eight) hours as needed (hiccups/v omiting). [facility] CL-KETOROLA C 60MG/2ML VIAL (TORADOL) 2022-05 00:00: 00 04-22 00:00 :00 No 60mg CL-KETOROL AC 60MG/2ML VIAL (TORADOL) 04/22/2023 04/22/2023 IM OPTIONS X1 60 MG [id number] RxNorm 60 MG IM OPTIONS ONE TIME [facility] ciprofloxac in (CIPRO) 500 mg tablet 02-13 00:00: 00 12-26 00:00 :00 No 500mg Take 1 Tab by mouth 2 (two) times daily. [facility] famotidine 40 mg tablet TAKE 1 TABLET BY MOUTH AT BEDTIME famotidine 40 mg tablet TAKE 1 TABLET BY MOUTH AT BEDTIME No famotidine 40 mg tablet TAKE 1 TABLET BY MOUTH AT BEDTIME [facility] ondansetron 4 mg disintegrat ing tablet DISSOLVE 1 TABLET IN MOUTH EVERY 4 HOURS NEEDED FOR NAUSEA AND VOMITING ondansetron 4 mg disintegrat ing tablet DISSOLVE 1 TABLET IN MOUTH EVERY 4 HOURS NEEDED FOR NAUSEA AND VOMITING No ondansetro n 4 mg disintegra ting tablet DISSOLVE 1 TABLET IN MOUTH EVERY 4 HOURS NEEDED FOR NAUSEA AND VOMITING [facility] baclofen 5 mg tablet Take 1 tablet every day by oral route. baclofen 5 mg tablet Take 1 tablet every day by oral route. No 1 Q1D baclofen 5 mg tablet Take 1 tablet every day [facility]. [facility] esc[facility] 10 mg tablet Take 1 tablet every day by oral route for 30 days. escitalopra m 10 mg tablet Take 1 tablet every day by oral route for 30 days. No 1 Q1D escitalopr am 10 mg tablet Take 1 tablet every day by oral route for 30 days. [facility] tramadol 50 mg tablet Take 1 tablet every 6 hours by oral route. tramadol 50 mg tablet Take 1 tablet every 6 hours by oral route. No 1 Q6H tramadol 50 mg tablet Take 1 tablet every 6 hours by oral route. [facility] Voquezna 20 mg tablet Take 1 tablet every day by oral route for 30 days. Voquezna 20 mg tablet Take 1 tablet every day by oral route for 30 days. No 1 Q1D Voquezna 20 mg tablet Take 1 tablet every day by oral route for 30 days. [facility] famotidine 40 mg tablet Take 1 tablet every day by oral route at bedtime. famotidine 40 mg tablet Take 1 tablet every day by oral route at bedtime. No 1 Q1D famotidine 40 mg tablet Take 1 tablet every day by oral route at bedtime. [facility] promethazin e 12.5 mg tablet TAKE 1 TABLET BY MOUTH EVERY 8 HOURS NEEDED FOR NAUSEA AND VOMITING FOR 7 DAYS promethazin e 12.5 mg tablet TAKE 1 TABLET BY MOUTH EVERY 8 HOURS NEEDED FOR NAUSEA AND VOMITING FOR 7 DAYS No promethazi ne 12.5 mg tablet TAKE 1 TABLET BY MOUTH EVERY 8 HOURS NEEDED FOR NAUSEA AND VOMITING FOR 7 DAYS [facility] ondansetron 8 mg disintegrat ing tablet Place 1 tablet every 8 hours by translingua l route. ondansetron 8 mg disintegrat ing tablet Place 1 tablet every 8 hours by translingua l route. No 1 Q8H ondansetro n 8 mg disintegra ting tablet Place 1 tablet every 8 hours by translingu al route. [facility] pantoprazol e 40 mg tablet,jeanine yed release Take 1 tablet every day by oral route. pantoprazol e 40 mg tablet,jeanine yed release Take 1 tablet every day by oral route. No 1 Q1D pantoprazo le 40 mg tablet,del ayed release Take 1 tablet every day by oral route. [facility] Immunizations Ordered Immunization Name Filled Immunization Name Date Status Comments Source influenza, unspecified formulation influenza, unspecified formulation Unknown Completed [facility] Vital Signs Vital Name Observation Time Observation Value Comments S o[facility]gar Systolic blood pressure 2025-02-19 13:56:00 121 mm[Hg] [facility] Diastolic blood pressure 2025-02-19 13:56:00 75 mm[Hg] [facility] Heart rate 2025-02-19 13:56:00 71 /min [facility] Body temperature 2025-02-19 13:56:00 36.89 Sandy [facility] Respiratory rate 2025-02-19 13:56:00 18 /min [facility] Body height 2025-02-19 13:56:00 157.5 cm [facility] Body weight 2025-02-19 13:56:00 78.019 kg [facility] BMI 2025-02-19 13:56:00 31.46 kg/m2 [facility] Oxygen saturation in Arterial blood by Pulse oximetry 2025-02-19 13:56:00 98 /min [facility] BP Diastolic 2025-02-13 00:00:00 78 mm[Hg] [facility] Weight 2025-02-13 00:00:00 173.4 [lb_av] [place] [facility] BMI (Body Mass Index) 2025-02-13 00:00:00 31.7 kg/m2 [place] [facility] BP Systolic 2025-02-13 00:00:00 154 mm[Hg] Richard lia [facility] Height 2025-02-13 00:00:00 62 [in_i] Idrisag orda [facility] Height 2025-02-09 16:59:00 157.812588 cm [facility] 2025-02-09 16:59:00 81.275140 kg [facility] BMI (Body Mass Index) 2025-02-09 16:59:00 32.9 kg/m2 [facility] Heart rate 2025-02-07 12:57:03 63 /min [facility] [place] [facility] Respiratory rate 2025-02-07 12:57:03 16 /min [facility] Oxygen saturation in Arterial blood by Pulse oximetry 2025-02-07 12:57:03 98 /min [facility] Body temperature 2025-02-07 12:56:23 36.94 Sandy [facility] Systolic blood pressure 2025-02-07 12:56:21 115 mm[Hg] [facility] Diastolic blood pressure 2025-02-07 12:56:21 58 mm[Hg] [facility] Body height 2025-02-03 10:41:00 154.9 cm [facility] Body weight 2025-02-03 10:41:00 75.8 kg [facility] BMI 2025-02-03 10:41:00 31.57 kg/m2 [facility] Heart rate 2025-02-07 12:57:03 63 /min [facility] [place] [facility] Respiratory rate 2025-02-07 12:57:03 16 /min [facility] Oxygen saturation in Arterial blood by Pulse oximetry 2025-02-07 12:57:03 98 /min [facility] Body temperature 2025-02-07 12:56:23 36.94 Sandy [facility] Systolic blood pressure 2025-02-07 12:56:21 115 mm[Hg] [facility] Diastolic blood pressure 2025-02-07 12:56:21 58 mm[Hg] [facility] Body height 2025-02-03 10:41:00 154.9 [facility] Body weight 2025-02-03 10:41:00 75.8 kg [facility] BMI 2025-02-03 10:41:00 31.57 kg/m2 [facility] BMI (Body Mass Index) 2025-01-26 00:00:00 33 kg/m2 [facility] BP Diastolic 2025-01-26 00:00:00 53 mm[Hg] [facility] Height 2025-01-26 00:00:00 62 [in_i] [facility] Body Weight 2025-01-26 00:00:00 2888 [oz_av] [facility] BP Systolic 2025-01-26 00:00:00 149 mm[Hg] [facility] Heart rate 2024-12-10 07:27:03 63 /min [facility] [place] [facility] Respiratory rate 2024-12-10 07:27:03 18 /min [facility] Oxygen saturation in Arterial blood by Pulse oximetry 2024-12-10 07:27:03 98 /min [facility] Body temperature 2024-12-10 07:26:51 36.56 [facility] Systolic blood pressure 2024-12-10 07:26:29 117 mm[Hg] [facility] Diastolic blood pressure 2024-12-10 07:26:29 65 mm[Hg] [facility] Body height 2024-12-08 17:34:00 167.6 cm [facility] Body weight 2024-12-08 17:34:00 82.4 kg [facility] BMI 2024-12-08 17:34:00 29.32 kg/m2 [facility] [place] [facility] Heart rate 2024-12-10 07:27:03 63 /min [facility] Respiratory rate 2024-12-10 07:27:03 18 /min [facility] Epic Oxygen saturation in Arterial blood by Pulse oximetry 2024-12-10 07:27:03 98 /min [facility] Body temperature 2024-12-10 07:26:51 36.56 [facility] Systolic blood pressure 2024-12-10 07:26:29 117 mm[Hg] [facility] Diastolic blood pressure 2024-12-10 07:26:29 65 mm[Hg] [facility] Body height 2024-12-08 17:34:00 167.6 cm [facility] [place] [facility] Body weight 2024-12-08 17:34:00 82.4 kg [facility] [place] [facility] BMI 2024-12-08 17:34:00 29.32 kg/m2 [facility] [place] [facility] Systolic blood pressure 2024-12-03 20:18:30 138 mm[Hg] [facility] Diastolic blood pressure 2024-12-03 20:18:30 94 mm[Hg] [facility] Heart rate 2024-12-03 20:18:30 61 /min [facility] Body temperature 2024-12-03 20:18:30 35.56 Sandy [facility] Respiratory rate 2024-12-03 20:18:30 16 /min [facility] Oxygen saturation in Arterial blood by Pulse oximetry 2024-12-03 20:18:30 98 /min [facility] Body height 2024-12-03 17:06:16 157.5 cm [facility] Body weight 2024-12-03 17:06:16 81.647 kg [facility] BMI 2024-12-03 17:06:16 32.92 kg/m2 [facility] Systolic blood pressure 2024-02-15 19:43:00 142 mm[Hg] [facility] Diastolic blood pressure 2024-02-15 19:43:00 100 mm[Hg] [facility] Heart rate 2024-02-15 19:43:00 60 /min [facility] Body temperature 2024-02-15 19:43:00 36.61 Sandy [facility] Respiratory rate 2024-02-15 19:43:00 18 /min [facility] Oxygen saturation in Arterial blood by Pulse oximetry 2024-02-15 19:43:00 100 /min [facility] Body height 2024-02-15 15:03:00 157.5 cm [facility] Body weight 2024-02-15 15:03:00 86.183 kg [facility] BMI 2024-02-15 15:03:00 34.75 kg/m2 [facility] Systolic blood pressure 2024-01-15 16:30:00 114 mm[Hg] [facility] Diastolic blood pressure 2024-01-15 16:30:00 68 mm[Hg] [facility] Heart rate 2024-01-15 16:30:00 71 /min [facility] Body temperature 2024-01-15 16:30:00 37 [place] [facility] Respiratory rate 2024-01-15 16:30:00 20 /min [facility] Oxygen saturation in Arterial blood by Pulse oximetry 2024-01-15 16:30:00 97 /min [facility] Body weight 2024-01-14 17:00:00 83.915 kg [facility] BMI 2024-01-14 17:00:00 30.79 kg/m2 [facility] Body height 2024-01-13 14:22:00 165.1 cm [facility] Systolic blood pressure 2023-12-27 20:40:00 136 mm[Hg] [facility] Diastolic blood pressure 2023-12-27 20:40:00 74 mm[Hg] [facility] Heart rate 2023-12-27 20:40:00 68 /min [facility] Respiratory rate 2023-12-27 20:40:00 18 /min [facility] Oxygen saturation in Arterial blood by Pulse oximetry 2023-12-27 20:40:00 98 /min [facility] Body temperature 2023-12-27 15:28:00 37 [facility] Body height 2023-12-27 15:26:00 160 cm [facility] Body weight 2023-12-27 15:26:00 82.555 kg [facility] BMI 2023-12-27 15:26:00 32.24 kg/m2 [facility] Weight 2023-12-26 08:20:00 86.320453 kg [facility] BMI (Body Mass Index) 2023-12-26 08:20:00 34.8 kg/m2 [facility] Height 2023-12-26 08:20:[address] [facility] Diastolic Blood Pressure 2023-04-22 13:13:00 78 mm[Hg] Body Height 2023-04-22 13:13:00 157.4800 cm Oxygen Saturation 2023-04-22 13:13:00 95 % Heart Rate 2023-04-22 13:13:00 88.0 /min Respiratory Rate 2023-04-22 13:13:00 16 /min Body Temperature 2023-04-22 13:13:00 37.4 Sandy Body Weight 2023-04-22 13:13:00 86.18 kg Body Mass Index 2023-04-22 13:13:00 34.75 kg/m2 Systolic Blood Pressure 2023-04-22 13:13:00 137 mm[Hg] Diastolic Blood Pressure 2023-04-22 13:13:00 78 mm[Hg] Body Height 2023-04-22 13:13:00 157.4800 cm Oxygen Saturation 2023-04-22 13:13:00 95 % Heart Rate 2023-04-22 13:13:00 88.0 /min Respiratory Rate 2023-04-22 13:13:00 16 /min Body Temperature 2023-04-22 13:13:00 37.4 Sandy Body Weight 2023-04-22 13:13:00 86.18 kg Body Mass Index 2023-04-22 13:13:00 34.75 kg/m2 Systolic Blood Pressure 2023-04-22 13:13:00 137 mm[Hg] Procedures Procedure Date / Time Performed Performing Clinician Source COMPREHENSIVE METABOLIC PANEL 2025-02-19 13:43:00 Ayla Prasad [facility] AMYLASE LEVEL 2025-02-19 13:43:00 Ayla Prasad [facility] LACTIC ACID LEVEL 2025-02-19 13:43:00 Ayla Prasad [facility] LIPASE LEVEL 2025-02-19 13:43:00 Ayla Prasad [facility] COMPLETE BLOOD COUNT W/DIFF AND PLATELET 2025-02-19 13:43:00 Ayla Prasad [facility] [place] esophagus barium swallow 2025-02-19 00:00:[address] [facility] [address] abdomen pelvis wo IV contrast 2025-02-19 00:00:00 [facility] Amylase Level 2025-02-19 00:00:[address] [facility] 2025-02-19 00:00:00 [facility] COMPREHENSIVE METABOLIC PANEL 2025-02-07 02:53:00 Cate Fitzgerald [facility] COMPLETE BLOOD COUNT W/DIFF AND PLATELET 2025-02-07 02:53:00 Cate Fitzgerald [facility] COMPLETE BLOOD COUNT 2025-02-07 02:53:00 Jennifer Fitzgerald ohpramod [facility] AUTOMATED DIFFERENTIAL 2025-02-07 02:53:00 Cate Fitzgerald [facility] [place] LAPAROSCOPY SURG CHOLECYSTECTOMY 2025-02-06 09:05:00 Denis Briggs [facility] COMPREHENSIVE METABOLIC PANEL 2025-02-06 03:48:00 JeniferChreie longoria [facility] COMPLETE BLOOD COUNT W/DIFF AND PLATELET 2025-02-06 03:48:00 Jenifer, Cherie [facility] COMPLETE BLOOD COUNT 2025-02-06 03:48:00 Kamilah Perla [facility] AUTOMATED DIFFERENTIAL 2025-02-06 03:48:00 [place] yudy [facility] [place] HEPATOBILIARY W PHARMA INTERVENTION 2025-02-05 15:54:00 Cherie Perla [facility] COMPREHENSIVE METABOLIC PANEL 2025-02-05 03:41:00 Jenifer, Cherie [facility] COMPLETE BLOOD COUNT W/DIFF AND PLATELET 2025-02-05 03:41:00 Jenifer, Cherie [facility] COMPLETE BLOOD COUNT 2025-02-05 03:41:00 Kamilah Perla [facility] AUTOMATED DIFFERENTIAL 2025-02-05 03:41:00 [place] yudy [facility] MRI ABDOMEN WO IV CONTRAST 2025-02-04 16:00:21 Morro Robledo [facility] EGD 2025-02-04 11:03:00 Moror Robledo [facility] TISSUE EXAM 2025-02-04 10:54:00 Emeterio Robledoim Marcial [facility] COMPREHENSIVE METABOLIC PANEL 2025-02-04 03:51:00 Karely, Weston Williamson [facility] MAGNESIUM LEVEL 2025-02-04 03:51:00 Karely, Weston Williamosn [facility] PHOSPHORUS LEVEL 2025-02-04 03:51:00 Karely, Weston Williamson [facility] COMPLETE BLOOD COUNT W/DIFF AND PLATELET 2025-02-04 03:51:00 Weston Cali [facility] COMPLETE BLOOD COUNT 2025-02-04 03:51:00 Weston Cali [facility] AUTOMATED DIFFERENTIAL 2025-02-04 03:51:00 Weston Cali [facility] US GALLBLADDER 2025-02-03 13:18:00 Baljit Aguillon [facility] CT ABDOMEN PELVIS W IV CONTRAST 2025-02-03 12:01:06 Baljit Aguillon [facility] COMPREHENSIVE METABOLIC PANEL 2025-02-03 10:50:00 Baljit Aguillon [facility] LIPASE LEVEL 2025-02-03 10:50:00 Baljit Aguillon [facility] COMPLETE BLOOD COUNT W/DIFF AND PLATELET 2025-02-03 10:50:00 Baljit Aguillon [facility] PROTIME-INR 2025-02-03 10:50:00 Baljit Aguillon [facility] PTT 2025-02-03 10:50:00 Baljit Aguillon [facility] UA WITH CULTURE IF INDICATED 2025-02-03 10:50:00 Baljit Aguillon [facility] COMPLETE BLOOD COUNT 2025-02-03 10:50:00 Baljit Aguillon [facility] AUTOMATED DIFFERENTIAL 2025-02-03 10:50:00 Baljit Aguillon [facility] Complete Blood Count w/Diff and Platelet 2024-12-14 00:00:00 [facility] Comprehensive Metabolic Panel 2024-12-14 00:00:00 [facility] COMPREHENSIVE METABOLIC PANEL 2024-12-10 05:47:00 Carter Anderson [facility] HEMOGLOBIN A1C 2024-12-10 05:47:00 Carter Anderson [facility] COMPLETE BLOOD COUNT W/DIFF AND PLATELET 2024-12-10 05:47:00 Carter Anderson [facility] THYROID STIMULATING HORMONE W/ REFLEX FREE T4 2024-12-10 05:47:00 Carter Anderson [facility] COMPLETE BLOOD COUNT 2024-12-10 05:47:00 Carter Anderson [facility] AUTOMATED DIFFERENTIAL 2024-12-10 05:47:00 Carter Anderson [facility] POC GLUCOSE UNSOLICITED RESULTS 2024-12-09 11:48:00 Carter Anderson [facility] [place] ESOPHAGUS BARIUM SWALLOW 2024-12-09 11:46:00 Venkat Morro Ceja [facility] BASIC METABOLIC PANEL 2024-12-09 06:39:00 Joe Albarran [facility] LIPID PANEL W/CALCULATED LDL 2024-12-09 06:39:00 Joe Aguirre [facility] ETHANOL LEVEL 2024-12-09 06:39:00 Melissa Aguirre [facility] HEMOGLOBIN A1C 2024-12-09 06:39:00 Melissa Aguirre [facility] LACTIC ACID LEVEL 2024-12-09 06:39:00 Nat Aguirre [facility] THYROID STIMULATING HORMONE 2024-12-09 06:39:00 Joe Aguirre [facility] COMPLETE BLOOD COUNT W/DIFF AND PLATELET 2024-12-09 06:39:00 Joe Aguirre [facility] PROCALCITONIN LEVEL 2024-12-09 06:39:00 Joe Aguirre [facility] COMPLETE BLOOD COUNT 2024-12-09 06:39:00 Joe Aguirre [facility] AUTOMATED DIFFERENTIAL 2024-12-09 06:39:00 Joe Marc am [facility] POC GLUCOSE UNSOLICITED RESULTS 2024-12-09 06:24:00 Joe Aguirre [facility] ECG 12-LEAD 2024-12-08 20:10:27 [facility] PELVIS W IV CONTRAST 2024-12-08 19:53:07 Carlene Olivier [facility] DRUG SCREEN URINE (8 DRUGS) 2024-12-08 18:55:00 Joe Aguirre [facility] UA WITH CULTURE IF INDICATED 2024-12-08 18:55:00 Carlene Olivier [facility] US GALLBLADDER 2024-12-08 18:41:49 [facility] 2024-12-08 18:36:00 Carlene Olivier [facility] HEPATIC FUNCTION PANEL 2024-12-08 18:36:00 Charline Carlene Sudha [facility] LIPASE LEVEL 2024-12-08 18:36:00 Charline [facility]gar [facility] COMPLETE BLOOD COUNT W/DIFF AND PLATELET 2024-12-08 18:36:00 Charline Carlene Haley [facility] TROPONIN I HIGH SENSITIVITY (SINGLE ORDER) 2024-12-08 18:36:00 Carlene Olivier [facility] COMPLETE BLOOD COUNT 2024-12-08 18:36:00 Carlene Olivier Ashley samayoa [facility] AUTOMATED DIFFERENTIAL 2024-12-08 18:36:00 Carlene Olivier [facility] XR ABDOMEN 1 VIEW 2024-12-08 18:11:00 Carlene Olivier [facility] URINALYSIS 2024-12-03 18:41:00 Atif Treadwell [facility] CT ABDOMEN PELVIS W CONTRAST 2024-12-03 18:03:00 Atif Treadwell [facility] LIPASE 2024-12-03 17:26:00 Atif Treadwell [facility] COMP. METABOLIC PANEL (94478) 2024-12-03 17:26:00 Atif Treadwell [facility] CBC WITH DIFF 2024-12-03 17:26:00 Atif Treadwell [facility] RAPID STREP SCREEN FOR GROUP A 2024-02-15 19:12:00 Wili Garcia [facility] CT SOFT TISSUE NECK WO CONTRAST 2024-02-15 18:54:00 Wili Garcia [facility] CT ABDOMEN PELVIS W CONTRAST 2024-02-15 16:24:47 Wili Garcia [facility] LIPASE 2024-02-15 15:21:00 Wili Garcia [facility] TROPONIN I 2024-02-15 15:21:00 Wili Garcia [facility] COMP. METABOLIC PANEL ([id number]) 2024-02-15 15:21:00 Wili Garcia [facility] CBC WITH DIFF 2024-02-15 15:21:00 [facility] PHOSPHORUS 2024-01-15 09:08:00 Leela Singer [facility] MAGNESIUM 2024-01-15 09:08:00 Leela Singer [facility] BASIC METABOLIC PANEL (NA, K, CL, CO2, GLUCOSE, BUN, CREATININE, CA) 2024-01-15 09:08:00 Leela Singer [facility] CBC WITH DIFF 2024-01-15 09:08:00 [facility] [place] SMALL BOWEL SERIES 2024-01-14 20:14:36 Jason Espinoza [facility] POCT GLUCOSE (AUTOMATED) 2024-01-14 16:53:00 Dayron Dominguez [facility] PHOSPHORUS 2024-01-14 11:16:00 Leela Singer [facility] MAGNESIUM 2024-01-14 11:16:00 Leela Singer [facility] BASIC METABOLIC PANEL (NA, K, CL, CO2, GLUCOSE, BUN, CREATININE, CA) 2024-01-14 11:16:00 Leela Singer [facility] CBC WITH DIFF 2024-01-14 11:16:00 Leela Singer [facility] XR ABDOMEN 1 VW 2024-01-13 18:31:00 [facility] ABDOMEN PELVIS W CONTRAST 2024-01-13 15:26:47 Yusra Yazmin [facility] LIPASE 2024-01-13 14:36:00 Yusra [facility] TROPONIN I 2024-01-13 14:36:00 Yusra [facility] COMP. METABOLIC PANEL ([id number]) 2024-01-13 14:36:00 Yusra Yazmin [facility] CBC WITH DIFF 2024-01-13 14:36:00 Yazmin Meng [facility] URINALYSIS 2023-12-27 19:55:00 Alfie Rodríguez [facility] LIPASE 2023-12-27 16:43:00 Alfie Rodríguez [facility] MAGNESIUM 2023-12-27 16:43:00 Alfie Rodríguez [facility] TROPONIN I 2023-12-27 16:43:00 Alfie Rodríguez [facility] HEPATIC FUNCTION PANEL (40811) (ALB,T.PRO,BILI T,BU/BC,ALT,AST,ALK PHOS) 2023-12-27 16:43:00 Alfie Rodríguez [facility] BASIC METABOLIC PANEL (NA, K, CL, CO2, GLUCOSE, BUN, CREATININE, CA) 2023-12-27 16:43:00 Alfie Rodríguez [facility] CBC WITH DIFF 2023-12-27 16:43:00 Alfie Rodríguez [facility] Colostomy [facility] opal Health Outreach Program Hernia Repair [facility] Health Outreach Program Cholecystectomy Titus Ep iscopal [facility] Outreach Program Tissue Examination [facility] Oxygen Therapy - Patient Type: Adult; Device: Nasal Cannula; SpO2 Goals (select one): General: > or equal to 92%; Follow Respiratory Pathway: Yes [facility] [employer] POCT Glucose [facility] ECG 12 lead [facility] Plan of Care Planned Activity Planned Date Details Comments Source Encounters Start Date/Time End Date/Time Encounter Type Admission Type Attending Clinicians Care Facility Care Department Encounter ID Source 2024-10-10 08:00:00 Inpatient CAMILA [facility] [id number] [facility] 2024-10-06 08:00:00 Inpatient CAMILA [facility] [id number] [facility] 2024-04-21 11:11:00 Inpatient MELISSA GOMEZ [facility] [id number] [facility] 2023-09-06 00:00:00 Inpatient JOHN [facility] [id number] [facility] 2025-02-26 11:30:00 2025-02-26 11:30:00 Outpatient DENIS BRIGGS [facility] [id number] [facility] 2025-02-19 13:30:00 2025-02-19 14:06:55 Office Visit Jc Ayla Prasad [facility] [id number] 350.1.13.70 8.2.7.2.686 [id number] [facility] 2025-02-13 00:00:00 2025-02-13 00:00:00 Carlos Luna MD: [id number], [place] [address] , Ph. [facility] [id number] [facility] 2025-02-09 16:58:00 2025-02-09 18:32:00 Emergency ER ROCIO CHONG [facility] [id number] [facility] 2025-02-09 16:58:00 2025-02-09 18:32:00 Departed Emergency Room [facility] [id number] [facility] 2025-02-03 10:55:00 2025-02-07 13:50:00 Hospital Encounter Baljit Aguillon, Cherie Hernandez Noha [facility] 1..840.114 350.1.13.70 8.2.7.2.686 [id number] [facility] 2025-02-03 10:55:00 2025-02-07 13:50:00 Inpatient Emergency CATE FITZGERALD [facility] General Medicine [id number] [facility] 2025-01-26 00:00:00 2025-01-26 00:00:00 Natalya Butcher, VP [employer]-BC: [address], [place] [address] , Ph. [facility] [id number] [facility] 2024-12-16 08:36:00 2024-12-16 08:36:00 Outpatient KATE MORALESINEZ [facility] [id number] [facility] 2024-12-16 08:36:00 2024-12-16 08:36:[address] [facility] [id number] [facility] 2024-12-08 20:01:00 2024-12-10 10:24:00 Hospital Encounter Baljit Aguillon, Carter Braun [facility] ..840.114 350.1.13.70 8.2.7.2.686 [id number] [facility] 2024-12-08 20:01:00 2024-12-10 10:24:00 Emergency Emergency CARTER ANDERSON [facility] General Medicine [id number] ES 2024-12-03 12:13:00 2024-12-03 15:22:00 Emergency X ATIF TREADWELL [facility] ERT [id number] [facility] 2024-07-28 09:40:00 2024-07-28 09:40:00 Outpatient JOHN REESE [facility] [id number] [facility] 2024-04-22 08:56:00 2024-04-22 08:56:00 Outpatient MELISSA GOMEZ [facility] [id number] [facility] 2024-02-15 10:07:00 2024-02-15 15:08:00 Emergency Wili Garcia [facility] 1..840.114 350.1.13.10 4.2.7.2.686 [id number] [facility] 2024-01-13 09:23:00 2024-01-15 13:31:00 [facility] MARCUS [id number] [facility] 2024-01-13 09:23:00 2024-01-15 13:31:00 Hospital Encounter Yazmin Meng, Dayron Navarro [facility] 1.2.840.114 350.1.13.10 4.2.7.2.686 [id number] [facility] 2023-12-27 10:29:00 2023-12-27 15:55:00 Emergency X ALFIE RODRÍGUEZ LUKE [facility] ERT [id number] [facility] 2023-12-27 10:29:00 2023-12-27 15:55:00 Emergency Alfie Rodríguez [facility] 1.2.840.114 350.1.13.10 4.2.7.2.686 [id number] [facility] 2023-12-26 08:06:00 2023-12-26 11:05:00 Emergency ER [facility] [id number] [facility] 2023-12-26 08:06:00 2023-12-26 11:05:00 Departed Emergency Room [facility] [id number] [facility] 2023-12-23 09:22:00 2023-12-23 09:22:00 Outpatient UR THOMAS [facility] [id number] [facility] 2023-12-23 09:22:00 2023-12-23 09:22:[address] [facility] [id number] [facility] 2023-11-10 15:01:00 2023-11-10 15:57:00 Outpatient [id number] 2023-11-10 15:01:00 2023-11-10 15:57:00 Outpatient TEO CALLAWAY [id number] [facility] [id number] [facility] 2023-11-10 15:01:00 2023-11-10 15:01:00 11/10/2023 [id number] SNOMED-CT 1.3.6.1.4 .1.04796 1.3.6.1.4.1 .70427 [id number] 2113-04-19 07:32:00 2023-09-10 07:32:00 Outpatient KATE BOOTH [facility] [id number] [facility] 2023-08-16 10:59:00 2023-08-16 12:32:00 Outpatient [id number] 2023-08-16 10:59:00 2023-08-16 12:32:00 Outpatient TEO CALLAWAY [id number] [facility] [id number] [facility] 2023-08-16 10:59:00 2023-08-16 10:59:00 08/16/2023 [id number] SNOMED-CT 1.3.6.1.4 .1.64943 1.3.6.1.4.1 .33887 [id number] 2023-04-22 12:09:00 2023-04-22 12:09:00 Outpatient [id number] 2023-04-22 12:09:00 2023-04-22 12:09:00 04/22/2023 [id number] SNOMED-CT 1.3.6.1.4 .1.05776 1.3.6.1.4.1 .01494 [id number] 2023-04-22 12:09:00 2023-04-22 12:09:00 04/22/2023 [id number] SNOMED-CT 1.3.6.1.4 .1.61311 1.3.6.1.4.1 .65511 [id number] 2023-04-22 12:09:00 2023-04-22 11:35:00 Outpatient JAMAAL MENDES [id number] [facility] [id number] [facility] 2023-01-02 10:16:00 2023-01-02 11:10:00 Outpatient SHANIKA ZUNIGA [id number] [facility] [id number] [facility] 2021-08-14 00:00:00 2021-08-14 00:00:00 Kalee Moore MD: [address] [place] [address] , Ph. [facility] [id number] [facility] 2019-01-26 06:39:00 2019-01-26 07:15:00 Outpatient DONA CORRAL [facility] [id number] [facility] Results Test Description Test Time Test Comments Results Result Co mments Source [facility] [id number] 15:38:11* Test Item Value Reference Range Interpretation Comme nts Lactic Acid Lvl (test code = 85383-0) 1.2 mmol/L 0.4-1.8 [facility] Metabolic [id number] 15:38:10* Test Item Value Reference Range Interpretation Comme nts Glucose Lvl (test code = 2345-7) 106 mg/dL 65-99 H . Fasting refere nce interval.For someone without known diabetes, a glucose valuebetween 100 and 125 mg/dL is consistent withprediabetes and should be confirmed with afollow-up test.. BUN (test code = 3094-0) 5 mg/dL 7-25 L Creatinine Lvl (test code = 2160-0) 0.73 mg/dL 0.70-1.35 eGFR (test code = 38867-3) See_Comment [Automated [employer]] The system which generated this result transmitted reference range: > OR = 60 mL/min/1.73m2. The reference range was not used to interpret this result as normal/abnormal. B/C Ratio (test code = 3097-3) See_Comment [[employer]] The system which generated this result transmitted reference range: 6 - 22 (calc). The reference range was not used to interpret this result as normal/abnormal. Sodium Lvl (test code = 2951-2) 138 mmol/L 135-146 Potassium Lvl (test code = 2823-3) 4.1 mmol/L 3.5-5.3 Chloride Lvl (test code = 2075-0) 100 mmol/L 98-110 CO2 Lvl (test code = 2027-9) 33 mmol/L 20-32 H Calcium Lvl (test code = 44224-6) 9.6 mg/dL 8.6-10.3 Total Protein (test code = 2885-2) 7.2 g/dL 6.1-8.1 Albumin Lvl (test code = 1751-7) 4.3 g/dL 3.6-5.1 Globulin (test code = 27967-2) See_Comment [[employer]] The system which generated this result transmitted reference range: 1.9 - 3.7 g/dL (calc). The reference range was not used to interpret this result as normal/abnormal. A/G Ratio (test code = 1759-0) See_Comment [Automated [employer]] The system which generated this result transmitted reference range: 1.0 - 2.5 (calc). The reference range was not used to interpret this result as normal/abnormal. Bili Total (test code = 1975-2) 0.8 mg/dL 0.2-1.2 Alk Phos (test code = 6768-6) 91 U/L 35-144 AST (test code = 1920-8) 16 U/L 10-35 ALANINE AMINOTRANSFERASE (test code = 1742-6) 13 U/L 9-46 Lab Interpretation (test code = 03736-1) Abnormal [facility] EpicAmylase [id number] 15:38:10* Test Item Value Reference Range Interpretation Comme nts Amylase Total (test code = 1798-8) 44 U/L 21-101 [facility] EpicLipase [id number] 15:38:10* Test Item Value Reference Range Interpretation Comme nts Lipase Lvl (test code = 3040-3) 21 U/L 7-60 [facility] EpicTissue [id number] 10:07:10* Test Item Value Reference Range Interpretation Comme nts Case Report (test code = 1499) Final Diagnosis (test code = 93517-7) u4yvnAXoOSOcvOQtLX QwMFxhbnNpXHNwbHRw P7PuqgusWVbdYG1lQU 5veGxhdHRveWVuXGRl ScPxg2qah433eBKyz4 xmMCBTZWdvZSBVSTt9 dXljF36my0A2VdhgT5 6xcVYyBOL2FZDuPDBl aKBfVFSrBEQ0EOUhqQ PiO9ilTILdKW4wnxwy SEqvEWwyGFZnyFI6XF FhbTQtG7CdQSNwCWhr KZIilpc0MlPiDw2gpR VyeTcyMFxwYXJkXHBs AElfVDShTuZaQI0uHZ J8x6PjpxBvAMHhuN2x r4k5HAQqqqAcIAPpIC PjDUP8p0WgqqWqCV81 Y24qXVzzyq7ve5IuA5 iomSTnsXdkwW6fDAOb p8yjN6xcBGYafKBsDZ Sgo75pVGInjltsARAa Yd6qHCN3q82lP9trXA TmoVT6iFjjIbitlPW6 OlxwYXIgICAgICAgIC 3GKSF6suhbMFBwtQVk lDIaoIDbp7Vpk9i4aD IejFxwGSXaWCM2kFVn UPHxEJ1cPTZdeAFwXV OhGXVvQJWwUD9iVFal oUgnl5EeR3CsujQthI xvcmkgaWRlbnRpZmll LXNbfOOPSXM1cBptGG D0GWAzuQKrzJGgtdfv CGCrTBRtWINxBC8yOr 6ndT76ZHW4jN6njDUy MBCbsYucl6lyGCYmmJ DaiGNvzCFwHA0pRG9f vZbetdVrE6ycaIWeGO PvudNPJnRkP1IydRHe eLowRu6mdIycDwbrkG R2QyfpBVEzKXVmWNFm BA4VWWL9tbloBR52eV 87lIRuiJSak8RkMZav dGggbWlsZCBzdXBlcm LsW8mxkJGeyWDxiorl UQfmZgndrV1rvLqbrc BhbmQgZmVhdHVyZXMg x3MmL0IypUq2GRVpFf Lujf51x60wmXKbeENs bfulPuf2b0ZsNCJaLH V6YCMrxnVvBGPsMJDr IOLYokIYAChfF61xFG D8XZMwgFkip7QzDZqv NH77xUPoFAFaInusB3 TuqQptjk0CrLNhddsq r1VhqO5ipLGiWEHhDT TsSTAlMA2zBPpssMQv xDjpHZwroHZ2FWVwIP KyLTpdWXyffGmzb4zw WCMegnVzCOmaO36hvm Z3JGOyxlpeCWHhHP6d EOsHUBg4ugJ7zF7nIR MkkF7qq8j6MKSnjjJj FIUzBJRmWR2keGAlAC N7cGKjKRBbwZsuP4w9 iKOml4n7gSZzBUGbsV p9JOKdfHFnsR66nrOo eHs4yGQtkICcCANzVR 0vBGEtjG5zwBAemE9m CGXgQ1GcDQPhplPzON RfqW3ybZCdRW9tUY6c eGWnPRM9zOGarS2omZ AfnGQ9tZ1hEULoneJf ICAgICAgLSBObyBmdW 7zFMbto9WaCL2vz62g GWruQU16uOMeZSFhFe tzP39YYYO9LAslHKJc ciAgICAgICAgLSBOby BifyVrd5InrjAnRZ9n iTCkeIRbiJWkKUG5w6 FrDFQjHRkbb2KeaYVl uGstDK8soRrbYSY6 Clinical Information (test code = 29) c4dkeKXrUIKmb3hmGT VmbGFuZzEwMzNcZnRu Aog4ZQTtkjX4Gvp3CK MnPOwuxU3hFFTsNRbs Y5vvfuWvsLUtH5Mcs5 ZzQLb4iF6fiZopmX4v MlCvAxNlKXApd9I2v1 T2TJLdd8QcLQcahElp XHBhciB9 Macroscopic Description (test code = 3606084757) m1ggyJUwPYGdzTULIJ Q2JVVlTO1ueXrofDz5 sLtoFJCbibX5kYQxXT zxm5pgSQZ6y2ovsxJB ClxkZWZmMVxwYXBlcn boQsU0PWviXYVjubng USy7UEzxDQZppRB2NU FbdXYhE3BuMLHpHI9t jhv7MBL2RLkhBWTfRe D5WOKfXMb5FNDaqzQ5 Hqo2WITcJSXslTSez0 V4TNpcd9nrg9ByN9Jh i2BhSPz0tH0CDvziOY T2XYsjQKPpNOU5OyTa ECHhj6Aiujo0WyJjJV b8EFpnCLTzT6MdH2Aw XFxzZyBcXGlkIDUxMD GrGAtyEPWdD2OCMKUh NNj1MXM5MtYsWKo0IU c2GRRDPWAwJpY1NPv0 SJl3IAx2XStmbrgeNQ z6TTBbFMxotPFgDM3c eCgbKihqrXevs7NyaA BcXHNnIFxcaWQgNTEw MDIgXFxkYiBPVlIgIi ZvSDI2PUIpLDTtFNt7 EZliT7EUCAAhGGWpEZ D6DzkjAyV2HRj9CMTH Wu4sJiA4DOe3RNPkQT F2APZ0FUnpjWVjZWlm s1YvFtGzFVGfDSevek Y3GFMpfwCmWMchdBeg jR1kuGQrJiHoOoInUT PZOlUWjH5rXV54eO0j oZAeY9noKaIpElezJE IgDQpccGFyZCANClxw bGFpblxsdHJjaFxsYW 5nMFxmczIyXGVwaWNO NIS6NH4cBZCDFqoxvA KuILTsu4TdMBnruWmc WHNhMzAgDQpSZWNlaX CfEXBejsJyXMYiyb3c bGluLWZpbGxlZCBjb2 50YWluZXIsIGxhYmVs AMQja5x8cGQmbIKyKF SjfRD2s69fqAN6tCDi dCBpZGVudGlmaWVycy ZtprAaGxC0b8UgbbDn UQBzh9AygGIggSLhPQ YaOHCgmVZlKP78UM9w IGlycmVndWxhciBzb2 L9XYMsk7Q1IQWmfTKf BJzqDRF1uMI0VEryM9 YiAQYaUjCwwK7sDR1k BFSpMNerKImlJGY3RR H6PMSetCKaa9mdaw8r VGhlIHBpZWNlKHMpIG txK8TbRUOxbXEfvYI4 SYNaXA07oVEhcEnfbJ 0eA5Rcw8K8eQPePAZw MZpqUUSrL87rm4MJp8 Atc4nvlLexr7SpiUFa JJ1meRUpPG3Cm2ofWK RzkLEiOWK3UYppi0dn QQwfAQW7TYElCrLaEO IzIJ2TTzTcUVZ7QYE2 ODG6UsG4SXg4ZYHXYy HhZoHwGAX2BpY4UdLq NWl9ZHa9IVnNWuS8Wo l6Veh3ToMrLTUeFvts KEy4ZYEzMMahhgVuPG ghOxvaFMybL18ohXDo ZFxzYjEwNVxlcGljWH GzQWE3IB1VOVAnRiTz Jz3eI8VovTKvFgSItm VtsC6hVYPkWbNguQHd SO4DDZFfusDqOQvxmT mejG8ygGAyR9rsvWWy ZzBcZnMyMlxlcGljTm VzdERvYzEgDQpcbHRy cGFyXHNiMzBcZXBpY1 hzYjMwXHNhMzBcZXBp K2kuGLEvWK0MBcJuGE w3XWMegS9gYDGpk1Ln AIbqip5trHeeUIDqV3 9udGFpbmVyLCBsYWJl bGVkIHdpdGggYXQgbG Cmw8WsiRyjOEXjpPsg bnQgaWRlbnRpZmllcn DiBU9tXNGtqmDvlO5c KgqsqDW8VmFohx5xbt UgMiBwYWxlLXRhbiwg sJXoZZj0vWXwFWUyLe WznYgto1LtXBSoTJPc KHMpIHRoYXQgaXMvYX GbAFQiFwT1sqRmXzVe L06vnM9aW1QkFGWbw8 BdPQkzDS1krG3kFbHJ bOGkeTdyI3AczbeohB PyDPGxRMP0Sq7sfMBe ZCBlbnRpcmVseSBpbi BwTQNmZCW1UJORKN0C ClxlcGljTmVzdERvYz F8VATnwDEjAFF4VL5h bLxhHGNzADb5BPowSA XnV3GyT7WlLBixCwVz XGlkIDUxMDAyIFxcZG EvW9TVXHRuDYo3CGJ6 KnZwPVt4SJw0IR2YRf GyYZWaCEccTTr3TaWa OBv6VJwyBE1UKBL9LD Z6YIF1QPY9DIF5UNTm XHQgMiBcXHNzIDMgXF rogADzYY8xqFfoYNNh BREqRZZ8QJPfzQTQg9 IxMDUgDQpcZnMyMCBD QcUBHCN9jyfuBOFfCX pfEMTcYpLlyQOgHO4O XHBhcmQgDQpccGxhaW 8klWImI5dnuNTtQrPt ZnMyMlxlcGljTmVzdE RvYzEgDQpcbHRycGFy WIYlBhStATAoE4twTi SrPJWvZcVjZDYpB1en LDOeXP3XPpEwWLq2HI HceL8lEDIsw2SdXXua ub2hlIaiNCZzZ72dsH FpbmVyLCBsYWJlbGVk IHdpdGggYXQgbGVhc3 QgdHdvIHBhdGllbnQg aWRlbnRpZmllcnMgYW 8aQRYiWIM2zfzjVAGt PNkfPdeftHX9SzNinn 9hcmUgMiBwYWxlLXRh kcgxgWRkKCb3hGUbJD HqGxOviOvfy3FtLFJj ZWNlKHMpIHRoYXQgaX SiMWHhIQFzRpA7wlTb QyRrG36ujX4jW9KyJR Xqd5UcFBhxXG9dxI6n QwAZfKIeoHjiQ2Eqgj tnkARmTXGyEGP9Lt4l dHRlZCBlbnRpcmVseS WttgXcCWUiLKN9TFDM BF3BLonlaFpkIsHbuK MeYhG9UIHagNJvHFE0 OT5wcXktUEBwYVg2KU qpEEEcN0GvR1HnSEgx ZyBcXGlkIDUxMDAyIF cfIACtQ5UMNNFyONh4 ZPJ6KdJnNHq8YYi8RU 0MDaFsNBNjSMcvECz4 ACOfJDx5KQroII6VFG E0DKY0RUgfSJL6PKA4 OCBcXHQgMiBcXHNzID ByYNhpdVQfJI7qqLtk FLGnCGOhACE5ZMXnmU CEe7HzUQRhAGavUbKl VXRAQsVWXMG8ui3go7 2enQNxZCGyWYt8osJ4 lU0tEjiozkLfZHVudn TVFhimQMZrCM2TKWUv NGobKFm2zqGfEOopxs yfMZHaUqJvGZMpG56m t2ZKd3TlTK5DIFd7ax BhclxzYjMwXGVwaWNY z3KcYVMPHjMmY0Sbuf LyTIslRSHxYg8xjKUv zI9lZeumiXCgUMTrqb IdmP0nzkcgsCWpWXvt VKX0dILaISD6PMdiMX I3LID3mhDrZNMrNQ12 PShnPS49yWBqPBEfJT FfNWDsU1CwaeBbH4Fj m04pTgkzjNG9JjQvfw 9hcmUgMiBwYWxlLXRh zmwavCOyMRy9xSRlXU MzCxUstGskb0XdGESe ZWNlKHMpIHRoYXQgaX GiIAUzXXPkNXE8uoJv BkXoQ57bgC5tG9WxLN Kqw5KsSUavWI9qpM6c LjZXyPWrjIkwP9Ewes pobRFgEJZaGMC1Sc5k dHRlZCBlbnRpcmVseS VdnbKqESMiKIR1ZTCY KV3xyOYiXW0XUIGydb RcbHRycGFyXHNhMzBc EDHaX8ynTFDtPO9JES Ldi7DaJ7V0JVLeCQpd h0jwOLZsFTfpo1DiDE bPSOHVGB8QLL7iuUQ4 HBaUZ0QLU3zJcLR1FV e9NEEaOCH6CHwQAVdp mBw7ZAi1dPrzDvdfek ClwUQoJuMRgF9XgAHw UHJOERJ0EDIuFJVPAZ faPrjilOJ2JCrjHglo gB6yiDDPMUOCMhsPDf irgsLfDU3TJV0YSA2Y dWR9SDg9AJGtZPD4AO pYYXrdtMc7TLv0nEew ZmxkcnNsdCBcJzFDfX 5taKhpoJ7khKDbC5rw bGFuZzBcZnMyMiAgXH Nwq9QfH7U9JKUoHGro c7gpQGXaFZjne4KyPA hHKXMUKW2RHM1tsHC1 TWiNF2YXK6oQlNQnJS xrwRV0TI3MHZzRZEDJ vBH0fInhkWo6d3vyyG Soa9x5TVpqCCF0bNW9 VfT6HtL3b8mzqXRbWI eyHcdldMPcfjO6YEgA ATZDIPaDCvJxFT2oGL pEPxkVJrK8OZQgYuT5 TagCQ4PJZNUISKX0ZQ p3cLE9yO09TITcIRPe xOLaWFioR501QXIvIW kjVMx4hiTwNErbeiko BWIvHnRkPUrcoh13SF J0d0nciUOjOUkoZyoh xLGriyF9MKhKCFPAES lXFvLgMJ9iJOzSUohP PVqJRds9VigqwD5CK6 wigEp4VTu0bAhfRoyc ioGtkEEbBrKRbP8sJZ oxOCBBTXtcZmllbGR7 IWnvLwqarB7pyMIQUR CYTjwCSaapncBiRG8N NR5ORT1KkXcolQC5Et 0KyDO8hIickIe4t4nd pKQey7g9YBhmQFZ5pE xwbGFpblxsdHJjaFxs II2nZTtqkvRsCS4WRG FzeBPAAIU1UH2hDXds IOIgJ4McV7WnkzJ6a2 mkbTwxm5OatNDyJF7w zOUzRI9WHFQhfaQsJU pcZnMyNCANCn0= Microscopic Description (test code = 32) u7wxzXLtJCXikAEeTR EwNFxhbnNpXHNwbHRw G1DenyppOJanEP5gBX 5veGxhdHRveWVuXGRl QsOzs7oeb373zTXuy4 xmMCBTZWdvZSBVSTt9 m3buKWINwkcktAu2aS irG66qa3E4YywyB89b pKCvISW4AKHeTDHlrY HuJSXdCXG3XPTbwZEg E0isXHAiII4vqkjsPP fbTFeySPNdeXF5AHEv uFLaM1HwHOOhJCfqSC Iiiuf9MlPiZn7aiIKt aDghRFyjP9ixgH2dXl P4GUrhX6rnrQ3nVCe2 FXbhGIPooNQ1ybI7QF ZohSRaT4PviX0uXKWq LY1wyyf7p0ktBJV0YQ sfCZYnUmQ0iiU9JYWu cGFyZFxwbGFpblxmMV usagPlRWAakEbmjr4v W49dqBBkKVrxbPzlXQ Eah88adOSzAHMdTH5c cSIcSf4raCZxRVSmWI T6cHCvBtkrBDblT7Ln FARoZHkwQ22moG3yEC LfLCVwbzV9sDVcNUwk L48iw0zsWMKdf2EpEl DKuLQsyR2tzUZirzMt JC7gHY2qU2U7xEFcJS NlltOsi9cxAYFnigXv rBzukVmglF6kpEZdmL BzpEKsthIwkV1ujJ2w sShasX1uiPVhrXGsaA BzdGFpbnMsIGlmIHBl mnHzbi0gRRVkt8EejN hpcyBjYXNlLCBoYXZl XNTsBU1smjU2mCT1KZ AwZQ3lZRW1qdjvq8Ym c3XzEJX9cUYwAP8fnP CuHEAhOBIdWOHmIQ4m Fp98zoZgvW1cBzXcYK Phpz3sowhncYCsRQAh cn0= Non-Clinical Documentation (test code = [id number]) h1wpgCAcRKXfkHPuFM QwMFxhbnNpXHNwbHRw X2EsafkjUWvuJJ4oEZ 5veGxhdHRveWVuXGRl SkNlo0duw903gTCsb2 xmMCBTZWdvZSBVSTt9 i3etBYQAcdqmiOz0aX gzH45uj3O1LsjuN3rm ZWQwXGdyZWVuMFxibH XfZYj6VONqzTRsbdHm XdZsNAOfkPWlvBW0PT OtSS2esxbpYJjwSBgf DIItujW6KKNbhSIlP6 CnCLOnHT7bujtzRYK6 BKfmUVDhCTU1YxRsLB Rey8Aptrf1SlDfgTEo ZFxwbGFpblxmMVxmcz IwXGNmMSBUaXNzdWUg uMTdY7Znn5bqVdOgni Eap1xcAWXewNDbvEXe ICCme13epISdXp7maU BdQSA7CH2mbD8viRRh RRzmsr2kme0sM567xF g0TAG9IWlew0CsaXOu HIM6WqXaGVSoMEPajk T5DIFLt6LiyW6yBNSB KDwtwkZ7XoU6TT7azP ToNLTrEFRNfTUpc6Nq w5DcOaAnhWRhgO6tzJ sbmmHpicQiQQwqE05u c9yfHJVcbmRnyc6kRU ZylSHLVO8jmswojHND VSCxBL7iQL6nX5AyLD HtTTBzQGGZk4QztZTi lY6cVCGgroSZGZSdx5 lqK1giMZQvSML6cZBm qAbwSInxryC0XXL1RY 12TdKaDFCyWZedDmJ8 MWS2VM80AvNrLBS2DR kuLZJiUPp9YEFtKc8i D7YcpjQuPZZnr0pviC CKQiLwH9CqVYUfDXOs URfoBLiqTKx3TNb3AF Bhcn0= [facility] hepatobiliary w pharma intervention (HIDA WITH EF) 2025-02-05 16:18:091. No scintigraphic evidence for acute cholecystitis. 2. An abnormal gallbladder ejection fraction is suggestive of biliary dyskinesia. Electronically signed by: ?Kristian Moss MD ?02/05/2025 04:18PM CDT RP : [facility] WITH PHARM DATE: 02/05/2025 3:54 PM CDT. INDICATION: Abdominal pain. COMPARISON: Abdomen MR 02/04/2025, CT abdomen pelvis and gallbladder ultrasound 02/03/2025. TECHNIQUE: Following the intravenous administration of 6 millicuries technetium-99m Choletec, dynamic images of the abdomen were obtained in the anterior projection for 60 minutes. Next, after the IV administration of CCK, dynamic images were obtained of the abdomen for an fvquehjdqu50 minutes. A region of interest was drawn around the gallbladder and ejection fraction was calculated.Cholecystokinin: 1.5 mcg IV. FINDINGS: * ?There is normal extraction of radiotracer by the hepatic parenchyma with normal clearance.* ?The intrahepatic biliary duct, common bile duct, gallbladder and small bowel are all visible within the first 60 minutes. * ?Gallbladder ejection fraction is abnormal at 30 minutes, measuring 11% (normal is greater than 35%). Kristian Moss MD - 02/05/2025 EXAM: [facility]PAT[facility] WITH PHARMDATE: 01/22 3:54 PM CDT.INDICATION: Abdominal pain.COMPARISON: Abdomen MR 02/04/2025, CT abdomen pelvis and gallbladder ultrasound 02/03/2025.TECHNIQUE: Following the intravenous administration of 6 millicuries technetium-99m Choletec, dynamic images of the abdomen were obtained in the anterior projectionfor 60 minutes. Next, after the IV administration of CCK, dynamic images were obtained of the abdomen for an additional 30 minutes. A region of interest was drawn around the gallbladder and ejection fraction was calculated.Cholecystokinin: 1.5 mcg IV.FINDINGS:* There is normal extraction of radiotracer by the hepatic parenchyma with normal clearance.* The intrahepatic biliary duct, common bile duct, gallbladder and small bowel are all visible within the first 60 minutes.* Gallbladder ejection fraction is abnormal at 30 minutes, measuring 11% (normal is greater than 35%).IMPRESSION:1. No scintigraphic evidence for acute cholecystitis.2. An abnormal gallbladder ejection fraction is suggestiveof biliary dyskinesia.Electronically signed by: Kristian Moss MD 02/05/2025 04:18 PM CDT RP Workstation: [id number] Grande [facility] Hospital abdomen wo contrast 2025-02-04 17:02:15Impression: 1. ?Gallbladder is slightly distended. Multiple small gallstones. No biliary duct dilation. No evidence seen for choledocholithiasis within the common bile duct nor external compression on the common bile duct. Electronically signed by: Bhavana Tse MD ?02/04/2025 05:02 PM CDT RP Workstation: [id number]: MRI of the abdomen without contrast (MRCP) Reason for Exam: Concern for choledocho. Right upper quadrant pain. Comparison Exam: US Gallbladder, CT Abdomen Pelvis 02/03/2025 and12/08/2024. Technique: Multiplanar and multisequence imaging was performed of the abdomen. T1 and T2- weighted images were acquired without injection of intravenous contrast. Discussion: Liver/Gallbladder/Biliary tree: Gallbladder is slightly distended. Multiple small gallstones. No biliary duct dilation. No evidence seen for choledocholithiasis within the common bile duct nor external compressionon the common bile duct. Pancreas: Unremarkable. Spleen: Unremarkable. Adrenals: Unremarkable. Kidneys/Ureters: Unremarkable. Gastrointestinal tract: Stomach is unremarkable. No dilated loops of bowel. Peritoneum/Mesentery/Retroperitoneum: No ascites appreciated Lymph nodes: Unremarkable. Vasculature: No abdominal aortic aneurysm. Bones/Soft tissues: Unremarkable Chepe Tse MD - 02/04/2025 Exam: MRI of the abdomen without contrast (MRCP)Reason for Exam: Concern for choledocho. Right upper quadrant pain.Comparison Exam: US Gallbladder, CT Abdomen Pelvis 02/03/2025 and 12/08/2024.Technique: Multiplanar and multisequence imaging was performed of the abdomen. T1 and T2-weighted images were acquired without injection of intravenous contrast. Discussion:Liver/Gallbladder/Biliary tree: Gallbladder is slightly distended. Multiple small gallstones. No biliary duct dilation. No evidence seen for choledocholithiasis within the common bile duct nor external compression on the common bile duct.Pancreas: Unremarkable.Spleen: Unremarkable.Adrenals: Unremarkable.Kidneys/Ureters: Unremarkable.Gastrointestinal tract: Stomach is unremarkable. No dilated loops of bowel.Peritoneum/Mesentery/Retroperitoneum: No ascites appreciatedLymph nodes: Unremarkable.Vasculature: No abdominal aortic aneurysm.Bones/Soft tissues: UnremarkableIMPRESSION:Impression:1. Gallbladder is slightly distended. Multiple small gallstones. No biliary duct dilation. No evidence seen for choledocholithiasis within the common bile duct nor external compression on the common bile duct.Electronically signed by: Chepe Tse MD 02/04/2025 05:02 PM CDT Workstation: [id number] Hermann [id number] 11:02:31Table formatting from the original result was not included.Introduction:A 59 yrs male patient presents for an EGD. Indication:Abdominal pain, unspecified abdominal locationChoking sensationEsophagitis Post-Procedure Diagnosis:None Pre-sedation assessment:A history and physical has been performed, and patient medication allergies have been reviewed. The patient's tolerance of previous anesthesia has been reviewed. The risks and benefits of the procedure and the sedation options and risks were discussed with the patient. All questions were answered and informed consent obtained. Consent:The benefits, risks (perforation, bleeding, infection, pancreatitis, adverse effects to the medicine, and the possibility of missing polyps, tumors, cancers, and other lesions), alternatives to the procedurewere discussed and informed consent was obtained from the patient. MedicationsSee Anesthesia Record. Details of the ProcedureThe patient underwent monitored anesthesia care, which was administered byan anesthesia professional. The patient's ETCO2, heart rate, level of consciousness, oxygen saturation, respirations, blood pressure and ECG were monitored throughout the procedure. The scope was introduced through the mouth and advanced to the second part of the duodenum. Retroflexion was performed in the cardia. The patient experienced no blood loss. The procedure was not difficult. The patienttolerated the procedure well. There were no apparent adverse events. FindingsMild erythematous esophagitis in the GE junction; performed cold forceps biopsy. The stomach appeared normal. Performed random biopsy using biopsy forceps. Single small nodule was suggestive of pancreatic rest was visualized in the antrum. The duodenum appeared normal. Performed random biopsy using biopsy forceps. Impress ionEsophagitis in the GE junction; performed cold forceps biopsy. The stomach appeared normal. Performed random biopsy. Single small nodule was suggestive of pancreatic rest was visualized in the antrum. The duodenum appeared normal. Performed random biopsy. SpecimensID Type Source Tests Collected by Time 1 : duodenum bx Tissue Duodenum TISSUE EXAM Morro Robledo MD 02/04/2025 1054 2 : antrum bx Tissue Gastric Antrum TISSUE EXAM Morro Robledo MD 02/04/2025 1054 3 : gastric body bx Tissue Gastric Body TISSUE EXAM Morro Robledo MD 02/04/2025 1055 4 : GE junction bx Tissue Gastroesophageal Junction TISSUE EXAM Morro Robledo MD 02/04/2025 1055 RecommendationFollow up with PCP Await pa thology results EventsProcedure Events Event Event Time Procedure Events Event Event Time ENDO UPPER SCOPE IN TIME 02/04/2025 10:53 AM EGD procedure length: Last relevant procedure: ?Scope Used: [id number] Role Madelyn Francisco MA Endo Microfilm Machine Operator Angelika Blandon, RN Endo Nurse Jacques Robledo MD Proceduralist Echo Goldberg MD Anesthesiologist ASA Score: 2 Mallampati Score: [facility] [id number] 14:31:021. ?Multiple mobile gallstones seen, the largest measuring 1 cm. Some gallstones seen in the gallbladder neck region. Shadowing seen in the gallbladder fundus region, which correlates with the suspected gallbladder wall calcification on the CT. No gallbladder wall thickening or pericholecystic fluid seen. No sonographic evidence of acute cholecystitis. No biliary ductal dilatation.2. ?Mild to moderate heterogeneous increased liver parenchymal echotexture, suggestive of fatty infiltration of theliver. SL: ?[id number] Electronically signed by: ?Ashish Solitario MD ?02/03/2025 02:31 PM CDT RP Wor kstation: [id number]: US GALLBLADDERClinical Indication: Nausea and vomiting.Comparison: CT abdomen and pelvis dated February 03, 2025 TECHNIQUE:Grayscale and limited color sonographic evaluation of the gallbladder region was performed with standard technique. FINDINGS: LIVER:Craniocaudal raquel th: 13.2 cm.Echogenicity: Mild to moderate heterogeneous increased liver parenchymal echotexture, suggestive of fatty infiltration of the liver.Surface: Normal.Mass (size and location): None. ?Portal vein: Patent with normal hepatopetal monophasic flow. Caliber: 0.8 cmGALLBLADDER: Multiple mobile gallstones seen, the largest measuring 1 cm. Some gallstones seen in the gallbladder neck region. Shadowing seen in the gallbladder fundus region, which correlates with the suspected gallbladderwall calcification on the CT. No gallbladder wall thickening or pericholecystic fluid seen.Sonographic Rodríguez sign: Absent.BILE DUCTS:Extrahepatic/common bile duct diameter: 0.5 cm. The distal extrahepatic/common bile duct is not well seen on the exam, related to bowel gas.Intrahepatic ducts: Normal.PANCREAS: Not well seen on the exam due to bowel gas in the abdomen.AORTA AND INFERIOR VENA CAVA: Not well seen on the exam due to bowel gas in the abdomen.PERITONEAL CAVITY: There is no right abdominal ascites. Ashish Solitario MD - 02/03/2025 Exam: US GALLBLADDERClinical Indication: Nausea and vomiting.Comparison: CT abdomen and pelvis dated February 03, 2025TECHNIQUE:Grayscale and limited color sonographic evaluation of the gallbl adder region was performed with standard technique.FINDINGS: LIVER:Craniocaudal length: 13.2 cm.Echogenicity: Mild to moderate heterogeneous increased liver parenchymal echotexture, suggestive of fatty infiltration of the liver.Surface: Normal.Mass (size and location): None. Portal vein: Patent with normal hepatopetal monophasic flow. Caliber: 0.8 cmGALLBLADDER: Multiple mobile gallstones seen, the largest measuring 1 cm. Some gallstones seen in the gallbladder neck region. Shadowing seen in the gallbladder fundus region, which correlates with the suspected gallbladder wall calcification on the CT. No gallbladder wall thickening or pericholecystic fluid seen.Sonographic Rodríguez sign: Absent.BILE DUCTS:Extrahepatic/common bile duct diameter: 0.5 cm. The distal extrahepatic/common bile duct is not well seen on the exam, related to bowel gas.Intrahepatic ducts: Normal.PANCREAS: Not well seen on the exam due to bowel gas in the abdomen.AORTA AND INFERIOR VENA CAVA: Not well seen on the exam due to bowel gas in the abdomen.PERITONEAL CAVITY: There is no right abdominal ascites.IMPRESSION:1. Multiple mobile gallstones seen, the largest measuring 1 cm. Some gallstones seen in the gallbladder neck region. Shadowing seen in the gallbladder fundus region, which correlates with the suspected gallbladder wall calcification on the CT. No gallbladder wall thickening or pericholecystic fluid seen. No sonographic evidence of acute cholecystitis. No biliary ductal dilatation.2. Mild to moderate heterogeneous increased liver parenchymal echotexture, suggestive of fatty infiltration of the liver.SL: [id number] signed by: Ashish Solitario MD 02/03/2025 02:31 PM [facility] [id number] W IV CONTRAST 2025-02-03 12:27:391. ?3. ?Moderately distended stomach and distal esophagus with fluid, consistent with gastroesophageal reflux.2. ?Mildly distended gallbladder. Tiny gallstone seen. Some curvilinear calcifications ofthe gallbladder fundus seen. Sonography may be performed, if there is further clinical concern.3. ?Mild descending and moderate proximal sigmoid colonic diverticulosis, without CT evidence of diverticulitis.4. ?Other nonacute findings, as noted above. Some motion artifact seen, which limits evaluation. SL: ?-145 Electronically signed by: ?Ashish Solitario MD ?02/03/2025 12:27 PM CDT RP [id number]: CT ABDOMEN PELVIS WITH IV CONTRASTClinical Indication: Persistent nausea and vomiting, severe motion due to breathing on scan, repeated and sent both series. Comparison: CT Abdomen pelvis, US Gallbladder and XR Abdomen 12/08/2024. TECHNIQUE: Helical imaging was performed from diaphragm through the symphysis with coronal and sagittal reconstructions. ?CT imaging performed at this location utilizes radiation dose optimization techniques which include one or more of the following:-Automated exposure control-Adjustment of the mA and/or kV according to patient size-Use of iterative reconstruction techniqueCT Radiation Dose: DLP Documented on standard report in mGy-cm. IV CONTRAST: YesGI CONTRAST: No FINDINGS: LOWER CHEST: The visualized lung bases are clear. LIVER: Unchanged mild fatty infiltration of the liver seen. A few scattered 0.2-0.4 cm liver low-attenuation lesion seen, which may represent cyst or bile duct hamartomas. No follow-up is recommended.. No mass.GALLBLADDER: Mildly distended gallbladder. Tiny gallstone seen. Some curvilinear calcifications of the gallbladder fundus seen. Sonography may be performed, if there is further clinical concern.INTRAHEPATIC BILE DUCT AND EXTRAHEPATIC BILE DUCT: No ductal dilation.PANCREAS: Some atrophic changes of the pancreas seen. No definite mass. No ductal dilation.SPLEEN: Normal enhancement. No mass. No splenomegaly. Some calcified granulomas are seen. ADRENALS: Normal shape. No mass.KIDNEYS AND URETERS: Thecorticomedullary phase enhancing kidneys show no contour deforming masses. No hydronephrosis. STOMACH: The non-contrast opacified stomach is moderately distended with air and fluid. Moderately distended distal esophagus seen with fluid, consistent with gastroesophageal reflux.BOWEL: The noncontrastopacified small bowel loops in the abdomen and pelvis appear unremarkable. The noncontrast opacified colonic loops in the abdomen and pelvis show mild descending and moderate proximal sigmoid colonicdiverticulosis, without CT evidence of diverticulitis. The lack of oral contrast limits bowel assessment.APPENDIX: The appendix is not discretely seen on the CT. There are no pericecal inflammatory changes to give CT evidence of acute appendicitis. PERITONEUM AND RETROPERITONEUM: No ascites or freeair. Some phleboliths are seen in the pelvis.VESSELS: ?There is no aortic aneurysm or dissection. The IVC and portal vein appear unremarkable.LYMPH NODES: No enlarged lymph nodes seen.REPRODUCTIVE: Unremarkable.BLADDER: No mass or debris.BONES: No acute abnormality seen. Small disc osteophyte complexes seen at the L3-4 and L4- 5 levels. Mild bilateral hip degenerative changes.SOFT TISSUES: Small bilateral inguinal hernias seen, containing peritoneal fat.OTHER: Some motion artifact seen, which limits evaluation. Ashish Solitario MD - 02/03/2025 Exam: CT ABDOMEN PELVIS WITH IV CONTRASTClinical Indication: Persistent nausea and vomiting, severe motion due to breathing on scan, repeated and sent both series. Comparison: CT Abdomen pel vis, US Gallbladder and XR Abdomen 12/08/2024.TECHNIQUE: Helical imaging was performed from diaphragm through the symphysis with coronal and sagittal reconstructions. CT imaging performed at this location utilizes radiation dose optimization techniques which include one or more of the following:-Automated exposure control-Adjustment of the mA and/or kV according to patient size-Use of iterative reconstruction techniqueCT Radiation Dose: DLP Documented on standard report in mGy-cm.IV CONTRAST: YesGI CONTRAST: NoFINDINGS: LOWER CHEST: The visualized lung bases are clear.LIVER: Unchanged mild fatty infiltration of the liver seen. A few scattered 0.2-0.4 cm liver low-attenuation lesion seen, which may represent cyst or bile duct hamartomas. No follow-up is recommended.. No mass.GALLBLADDER: Mildly distended gallbladder. Tiny gallstone seen. Some curvilinear calcifications of the gallbladderfundus seen. Sonography may be performed, if there is further clinical concern.INTRAHEPATIC BILE DUCT AND EXTRAHEPATIC BILE DUCT: No ductal dilation.PANCREAS: Some atrophic changes of the pancreas seen. No definite mass. No ductal dilation.SPLEEN: Normal enhancement. No mass. No splenomegaly. Some calcified granulomas are seen. ADRENALS: Normal shape. No mass.KIDNEYS AND URETERS: The corticomedullary phase enhancing kidneys show no contour deforming masses. No hydronephrosis.STOMACH: The non-contrast opacified stomach is moderately distended with air and fluid. Moderately distended distal esophagus seen with fluid, consistent with gastroesophageal reflux.BOWEL: The noncontrast opacified small bowel loops in the abdomen and pelvis appear unremarkable. The noncontrast opacified colonic loops in the abdomen and pelvis show mild descending and moderate proximal sigmoid colonic diverticulosis, without CT evidence of diverticulitis. The lack of oral contrast limits bowel assessment.APPENDIX: The appendix is not discretely seen on the CT. There are no pericecal inflammatory changes to giveCT evidence of acute appendicitis.PERITONEUM AND RETROPERITONEUM: No ascites or free air. Some phleboliths are seen in the pelvis.VESSELS: There is no aortic aneurysm or dissection. The IVC and portal vein appear unremarkable.LYMPH NODES: No enlarged lymph nodes seen.REPRODUCTIVE: Unremarkable.BLADDER: No mass or debris.BONES: No acute abnormality seen. Small disc osteophyte complexes seen at theL3-4 and L4-5 levels. Mild bilateral hip degenerative changes.SOFT TISSUES: Small bilateral inguinal hernias seen, containing peritoneal fat.OTHER: Some motion artifact seen, which limits evaluation.IMPRESSION:1. 3. Moderately distended stomach and distal esophagus with fluid, consistent with gastro esophageal reflux.2. Mildly distended gallbladder. Tiny gallstone seen. Some curvilinear calcifications of the gallbladder fundus seen. Sonography may be performed, if there is further clinical concern.3. Mild descending and moderate proximal sigmoid colonic diverticulosis, without CT evidence of di verticulitis.4. Other nonacute findings, as noted above. Some motion artifact seen, which limits evaluation.SL: -[id number] signed by: Ashish Solitario MD 02/03/2025 12:27 PM CDT RP [id number] [facility] Collection of laboratory [id number] 09:06:00* Test Item Value Reference Range Interpretation Comme [facility] Venous Blood Collection (benny t code = GHC2468) [facility] [id number] 11:51:23* Test Item Value Reference Range Interpretation Comme [facility] POC Glu (test code = 50856-7) 110 mg/dL 70-99 H POC Glu Comment 1 (test code = 1925663365) Notified RN/MD POC Performing Location (benny t code = 4853114016) 5E MS Lab Interpretation (test cod e = 35737-4) Abnormal [facility] [id number] 06:27:00* Test Item Value Reference Range Interpretation Comme [facility] POC Glu (test code = 38656-2) 117 mg/dL 70-99 H POC Glu Comment 1 (test code = 5721720302) Notified RN/MD POC Performing Location (benny t code = 4235828501) 5E [facility] Lab Interpretation (test cod e = 18553-5) [facility] [id number] 18:54:26EXAM: CT ABDOMEN PELVIS W CONTRAST HISTORY: 59 years-old Male; Abdominal pain, acute, nonlocalized TECHNIQUE: Contiguous axial imaging from the level of the lung basesthrough the iliac crests was performed following the intravenousadministration of contrast. Coronal and sagittal reconstructions were obtained. COMPARISON: 02/15/2024 FINDINGS: LOWER THORAX: The lung bases are clear. LIVER: The liver is normal in size. The contour is unremarkable. No focalhepatic lesion is seen. GALLBLADDER AND BILIARY TREE: The gallbladder is physiologically distendedwith layering small hyperdense stones in the dependent portion of thelumen. There is no obvious wall thickening or pericholecystic fluid. Nointra or extrahepatic biliary ductal dilation is visualized. SPLEEN: The spleen appears unremarkable. PANCREAS: No ductal dilation or masses are visualized. ADRENAL GLANDS: No adrenal masses are seen. KIDNEYS: No hydronephrosis, stones, or solid masses are visualized. PELVIS/BLADDER: The bladder is adequately distended and appearsunremarkable. GI TRACT: No dilation or bowel wall thickening is seen. The appendix is notdefinitively visualized, however, no secondary signs of appendicitis areseen. ?Small type I hiatal hernia. PERITONEUM AND RETROPERITONEUM: No intra-abdominal free air or fluidcollectionis visualized. LYMPH NODES: No enlarged intra-abdominal or pelvic lymph nodes are found. VESSELS: The vessels appear unremarkable. BONES AND SOFT TISSUES: No suspicious lytic or sclerotic bony lesions arepresent. Small bilateral fat-containing inguinal hernias.[facility] COMP. METABOLIC PANEL ([id number])2024-12-03 18:11:18* Test Item Value Reference Range Interpretation Comme nts NA (test code = 7219255922) 131 mmol/L 135-145 L K (test code = 1464273560) 3.2 mmol/L 3.5-5.0 L CL (test code = 5860976425) 93 mmol/L 98-108 L CO2 TOTAL (test code = 5022176991) 26 mmol/L 23-31 AGAP (test code = 5655631732) 12 2-16 BUN (test code = 0684409471) 10 mg/dL 7-23 GLUCOSE (test code = 8254383283) 124 mg/dL 70-110 H CREATININE (test code = 2160-0) 0.86 mg/dL 0.60-1.25 TOTAL BILI (test code = 5256181388) 1.8 mg/dL 0.1-1.1 H CALCIUM (test code = 2622800948) 9 mg/dL 8.6-10.6 T PROTEIN (test code = 2499814459) 7.9 g/dL 6.3-8.2 ALBUMIN (test code = 5536996984) 4.5 g/dL 3.5-5.0 ALK PHOS (test code = 1867790101) 87 U/L 34-122 ALTv (test code = 1742-6) 32 U/L 5-50 AST(SGOT) (test code = 1352405844) 51 U/L 13-40 H eGFR (test code = 79235-8) 99.1 mL/min/1.73m2 CKD-EPI eGFR (2020). Assuming creatinine has been stable day-to-day for at least three months, the eGFR indicates Category G1 (>= 90 mL/min/1.73 m2) Lab Interpretation (test code = 27317-0) [facility] 18:10:58* Test Item Value Reference Range Interpretation Comme nts LIPASE (test code = 7045299678) 61 U/L 0-220 Lab Interpretation (test cod e = 68419-8) [facility] [id number] 18:06:36* Test Item Value Reference Range Interpretation Comme nts WBC (test code = 6690-2) 9.59 4.20-10.70 RBC (test code = 789-8) 4.26 4.26-5.52 HGB (test code = 718-7) 14 g/dL 12.2-16.4 HCT (test code = 4544-3) 39.2 % 38.4-49.3 MCV (test code = 787-2) 92 fL 81.7-95.6 MCH (test code = 785-6) 32.9 pg 26.1-32.7 H MCHC (test code = 786-4) 35.7 g/dL 31.2-35.0 H RDW-SD (test code = 36655-5) 40.8 fL 38.5-51.6 RDW-CV (test code = 788-0) 12.1 % 12.1-15.4 PLT (test code = 777-3) 328 150-328 MPV (test code = 37380-8) 9.4 fL 9.8-13.0 L NRBC/100 WBC (test code = 4949026382) 0 0.0-10.0 NRBC x10^3 (test code = 5259698441) See_Comment [Automated messa ge] The system which generated this result transmitted reference range: 10*3/?L. The reference range was not used to interpret this result as normal/abnormal. GRAN MAT (NEUT) % (test code = 770-8) 75.5 % IMM GRAN % (test code = 4218012535) 0.3 % LYMPH % (test code = 736-9) 12.4 % MONO % (test code = 5905-5) 10.7 % EOS % (test code = 713-8) 0.9 % BASO % (test code = 706-2) 0.2 % GRAN MAT x10^3(ANC) (test code = 2225412858) 7.23 10*3/uL 1.99-6.95 H IMM GRAN x10^3 (test code = 0558989457) 0.03 10*3/uL 0.00-0.06 LYMPH x10^3 (test code = 731-0) 1.19 10*3/uL 1.09-3.23 MONO x10^3 (test code = 742-7) 1.03 10*3/uL 0.36-1.02 H EOS x10^3 (test code = 711-2) 0.09 10*3/uL 0.06-0.53 BASO x10^3 (test code = 704-7) 0.01-0.09 Lab Interpretation (test code = 03793-6) [facility]normal [facility] WO [id number] 19:19:37CT SOFT TISSUE NECK WO CONTRAST HISTORY: Vomiting, hiccups. COMPARISON: None Technique: Noncontrastaxial images were obtained from suprasellar regionthrough the mediastinum. FINDINGS: Visualized aspects of the brain, orbits and paranasal sinuseswere without worrisome finding. Within the limitations of a noncontraststudy there were no mucosal or shakeel lesions and no obstructive lesions.[facility] W [id number] 16:47:33CT ABDOMEN PELVIS W CONTRAST 02/15/2024 11:10 AM HISTORY: 58-year-old female with Abdominal distension Abdominal pain,acute, nonlocalized COMPARISON: CT abdomen pelvis contrast dated 02/13/2014. TECHNIQUE: Axial images of the abdomen and pelvis were acquired afteradministration of intravenous contrast. Coronal and sagittalreconstructions were also created. FINDINGS: LOWER CHEST: The lungs bases areclear. ? HEPATOBILIARY: The liver is normal in size.No focal hepatic lesion. Diffusehepatic hepatichypoattenuationNo biliary ductal dilatation. ?The gallbladder is distended with layeringsubcentimeter gallstones in the neck of the gallbladder. SPLEEN: Calcified granulomas are seen. PANCREAS: The parenchyma is unremarkable.No ductal dilatation. No masses. ADRENAL GLANDS: No adrenal nodules. KIDNEYS: No hydronephrosis or stone. No solid mass. GI TRACT: No dilation or wall thickening. The appendix is surgicallyabsent. Diffuse colonic diverticuli. Moderate colonic stool burden. PERITONEUM AND RET ROPERITONEUM: No free air or free fluid. LYMPH NODES: No lymphadenopathy is seen. PELVIS/BLADDER: The urinary bladder is physiologically distended. Thereproductive organs are within normal limits. VESSELS: Within normal limits. BONES AND SOFT TISSUES: No aggressive osseous lesion or acute osseousabn ormality. No concerning soft tissue abnormality.[facility] HospitalTROPONIN [id number] 15:56:53* Test Item Value Reference Range Interpretation Comme nts TROPONIN I (test code = 1184016301) 0.005 ng/mL <=0.034 SERVANDO (test code = SERVANDO) Reference (Normal) Range (defined by the 99th percentile reference limit): <= 0.034 ng/mL Note: Cardiac troponin begins to rise 3-4 hours after the onset of ischemia. Repeat in 4-6 hours if the sample was drawn within 3-4 hours of the onset of the symptom and found normal. Diagnosis of myocardial injury is made with acute changes in cTn concentrations with at least one serial sample above the 99th percentile upper reference limit (URL), taken together with the patient's clinical presentation. Biotin has been reported to cause a negative bias, interpret results relative to patient's use of biotin. Lab Interpretation (test code = 58134-9) Normal [facility]. METABOLIC PANEL ([id number])2024-02-15 15:55:04* Test Item Value Reference Range Interpretation Comme nts NA (test code = 0804268290) 135 mmol/L 135-145 K (test code = 5079322480) 2.9 mmol/L 3.5-5.0 LL CL (test code = 9841169366) 103 mmol/L 98-108 CO2 TOTAL (test code = 6007741111) 29 mmol/L 23-31 AGAP (test code = 6780762798) 3 2-16 BUN (test code = 6762974078) 8 mg/dL 7-23 GLUCOSE (test code = 8716125937) 135 mg/dL 70-110 H CREATININE (test code = 2160-0) 0.57 mg/dL 0.60-1.25 L TOTAL BILI (test code = 6966730153) 0.7 mg/dL 0.1-1.1 CALCIUM (test code = 1880286956) 8.8 mg/dL 8.6-10.6 T PROTEIN (test code = 4835465149) 6.9 g/dL 6.3-8.2 ALBUMIN (test code = 6372246397) 3.8 g/dL 3.5-5.0 ALK PHOS (test code = 8802993694) 114 U/L 34-122 ALTv (test code = 1742-6) 171 U/L 5-50 H AST(SGOT) (test code = 2194532547) 136 U/L 13-40 H eGFR (test code = 00759-7) 112.9 mL/min/1.73m2 CKD-EPI eGFR (2020). Assuming creatinine has been stable day-to-day for at least three months, the eGFR indicates Category G1 (>= 90 mL/min/1.73 m2) Lab Interpretation (test code = 76992-2) [facility]normal [facility] 15:45:54* Test Item Value Reference Range Interpretation Comme nts LIPASE (test code = 7835347201) 80 U/L 0-220 Lab Interpretation (test cod e = 11673-5) Normal [facility] WITH [id number] 15:33:32* Test Item Value Reference Range Interpretation Comme nts WBC (test code = 6690-2) 9.54 4.20-10.70 RBC (test code = 789-8) 3.84 4.26-5.52 L HGB (test code = 718-7) 12.5 g/dL 12.2-16.4 HCT (test code = 4544-3) 35.2 % 38.4-49.3 L MCV (test code = 787-2) 91.7 fL 81.7-95.6 MCH (test code = 785-6) 32.6 pg 26.1-32.7 MCHC (test code = 786-4) 35.5 g/dL 31.2-35.0 H RDW-SD (test code = 91142-0) 41.7 fL 38.5-51.6 RDW-CV (test code = 788-0) 12.4 % 12.1-15.4 PLT (test code = 777-3) 289 150-328 MPV (test code = 19973-7) 9.4 fL 9.8-13.0 L NRBC/100 WBC (test code = 4704344303) 0.0 0.0-10.0 NRBC x10^3 (test code = 0078680171) See_Comment [Automated messa ge] The system which generated this result transmitted reference range: 10*3/?L. The reference range was not used to interpret this result as normal/abnormal. GRAN MAT (NEUT) % (test code = 770-8) 75.6 % IMM GRAN % (test code = 8681378506) 0.30 % LYMPH % (test code = 736-9) 12.6 % MONO % (test code = 5905-5) 9.7 % EOS % (test code = 713-8) 1.5 % BASO % (test code = 706-2) 0.3 % GRAN MAT x10^3(ANC) (test code = 1441371128) 7.21 10*3/uL 1.99-6.95 H IMM GRAN x10^3 (test code = 6754810349) 0.03 10*3/uL 0.00-0.06 LYMPH x10^3 (test code = 731-0) 1.20 10*3/uL 1.09-3.23 MONO x10^3 (test code = 742-7) 0.93 10*3/uL 0.36-1.02 EOS x10^3 (test code = 711-2) 0.14 10*3/uL 0.06-0.53 BASO x10^3 (test code = 704-7) 0.03 10*3/uL 0.01-0.09 Lab Interpretation (test code = 29362-4) Abnormal [facility] HospitalFL SMALL BOWEL [id number] 20:18:14EXAM: Small bowel follow-through HISTORY: Obstruction TECHNIQUE:Therapeutic Support Staff film was obtained prior to the examination. This isfollowed by oral administration of 120 mL of 50% diluted Gastrografin.Serial images of the abdomen are obtained at 30 minutes, 2 hours. FINDINGS: The steamer tender image demonstrates air-filled loops of small and large bowel withslightly dilated loops in the left side of the abdomen likely representingfocal ileus. Following administration of oral contrast, contrast is visualizedthroughout the small bowel and the colon and rectum at 2 hours post oraladministrationUnHouston Methodist HospitalPOCT GLUCOSE (AUTOMATED)2024-01-14 16:54:28* Test Item Value Reference Range Interpretation Comme nts POCT GLU (test code = 8134053228) 99 mg/dL 70-110 Lab Interpretation (test cod e = 24866-8) Normal [facility] HospitalAbdominal 1 View - To confirm nasogastric tube placement.2024-01-13 19:15:02EXAM: Abdomen one view HISTORY: NGT placement TECHNIQUE:An AP view of the upper abdomen is obtained. FINDINGS:The tip and sidehole of the nasogastric tube are within thestomach. The bowel gas patternis nonobstructive. Contrast is seen in the renal collecting system likely related to recentcontrastexamination. A left pleural effusion is present.[facility] HospitalCT [facility] W [id number] 15:46:23EXAM: CT ABDOMEN AND PELVIS WITH CONTRAST HISTORY: Abdominal abscess/infection suspected Nausea/vomiting COMPARISON: 02/13/2014 TECHNIQUE: Contiguous axial imaging was performed following administrationof intravenous contrast. Coronal and sagittal reconstructions wereobtained. FINDINGS: Lung bases are clear. There is a tiny hiatal hernia. Slight thickening ofthe distal esophagus may be related to mild esophagitis. There is diffuse hepatic steatosis. Subcentimeter hypodensity in the liveris too small to characterize but may be a tiny cyst. Small gallstone in thegallbladder. No biliary ductal dilatation. A few calcified granuloma in thespleen. The pancreas, adrenal glands and kidneys are normal. The aorta andiliac arteries are normal in caliber. The bladder is unremarkable. The prostate gland is not significantlyenlarged. There are small fat-containing inguinal hernias. There are multiple diverticula in the colon without evidence of acutediverticulitis. The appendix is not definitely identified. No secondarysigns of appendicitis. There are several loops of dilated fluid containingjejunum in the left abdomen measuring up to 5 cm. There are is fecalizationof contents within a loop of small bowel at the left lower quadrant justinferior medial to the site of the previously repaired left spigelianhernia. This loop is just proximal to focal transition to normal calibersmall bowel with acute angulation possibly tethering. Completely collapseddistal small bowel. Colon is mostly decompressed.Findings are concerningfor small bowel obstruction. There is no free fluid or lymphadenopathy.There is no free air. Milddegenerative change involving the spine is present.[facility] HospitalColor of Urine by Elyj4070-22-37 10:17:00* Test Item Value Reference Range Interpretation Comme [facility] Urine Color (test code = 48584-1) Yellow [facility] CtrAppearance of Avohw9039-46-37 10:17:00* Test Item Value Reference Range Interpretation Comme nts Urine Appearance (test code = 5767-9) Clear [facility] glucose evyteofft7495-03-83 10:17:00* Test Item Value Reference Range Interpretation Comme [facility] Urine Glucose (UA) (test cod e = 2349-9) Negative [facility] HospitalBilirubin [id number] 10:17:00* Test Item Value Reference Range Interpretation Comme nts Urine Bilirubin (test code = 791848083) Negative [facility] CtrKetones mp2450-97-38 10:17:00* Test Item Value Reference Range Interpretation Comme nts Urine Ketones (test code = 04864494) Negative [facility] HospitalSpecific gravity of Urine by Automated test strip 2023-12-26 10:17:00* Test Item Value Reference Range Interpretation Comme nts Urine Specific [place] (test code = 46761-2) > 1.045 [facility] CtrUrine blood yomflaail0827-47-51 10:17:00* Test Item Value Reference Range Interpretation Comme nts Urine Blood (test code = 54786-7) Negative [facility] CtrpH lr3625-70-15 10:17:00* Test Item Value Reference Range Interpretation Comme nts Urine pH (test code = 2756-5) 5.000 [facility] CtrProtein in5082-50-36 10:17:00* Test Item Value Reference Range Interpretation Comme nts Urine Protein (test code = 25404880) Negative [facility] CtrUrobilinogen, urine, ra4609-97-42 10:17:00* Test Item Value Reference Range Interpretation Comme nts Urine Urobilinogen (test cod e = 515136499) 1.0 [facility] CtrUrine nitrate kceruepla0892-71-94 10:17:00* Test Item Value Reference Range Interpretation Comme nts Urine Nitrate (test code = 46704-9) Negative [facility] CtrUrine leukocyte esterase fiywaegps1423-66-63 10:17:00* Test Item Value Reference Range Interpretation Comme nts Urine Leukocyte Esterase (te st code = 518494876) Negative [facility] CtrRBC count ur amra8496-89-08 10:17:00* Test Item Value Reference Range Interpretation Comme nts Urine RBC (test code = 798-9) 0-2 [facility] CtrUrine examination for white blood cells (WBC) 2023-12-26 10:17:00* Test Item Value Reference Range Interpretation Comme nts Urine WBC (test code = 803594591) 0-2 [facility] CtrAutomated epithelial cells count in urine sediment (number/area)2023-12-26 10:17:00* Test Item Value Reference Range Interpretation Comme nts Urine Epithelial Cells (test code = 02398-0) 0-2 [facility] CtrBacteria detection in urine sediment by light dtegmvhmcy8961-97-57 10:17:00* Test Item Value Reference Range Interpretation Comme nts Urine Bacteria (test code = 45979-6) None Seen [facility] CtrUrine casts detection by automated method 2023-12-26 10:17:00* Test Item Value Reference Range Interpretation Comme nts Urine Casts (test code = 30602-8) 0-2 [facility] CtrSerum or plasma glucose measurement (mass/volume) 2023-12-26 08:49:00* Test Item Value Reference Range Interpretation Comme nts Random Glucose (test code = 2345-7) 118 [facility] CtrSerum or plasma urea nitrogen measurement (mass/volume)2023-12-26 08:49:00* Test Item Value Reference Range Interpretation Comme nts Blood Urea Nitrogen (test co de = 3094-0) 10 [facility] NbrWQV1976-25-59 08:49:00* Test Item Value Reference Range Interpretation Comme nts Aspartate Amino Transf (AST/ SGOT) (test code = KHJ9782) 21 [facility] CtrBilirubin ztfon3059-38-03 08:49:00* Test Item Value Reference Range Interpretation Comme nts Total Bilirubin (test code = NJY6321) 0.5 [facility] CtrEstimated glomerular filtration rate (GFR) hajsnuvfndgqh3719-11-67 08:49:00* Test Item Value Reference Range Interpretation Comme nts Glomerular Filtration Rate C alc (test code = 000457855) > 60.00 [facility] CtrBUN/creatinine pzirs0265-18-41 08:49:00* Test Item Value Reference Range Interpretation Comme nts BUN/Creatinine Ratio (test c ode = 38101631) 14.3 [facility] UvhUP11084-04-86 08:49:00* Test Item Value Reference Range Interpretation Comme nts Carbon Dioxide Level (test c ode = 40620251) 22 [facility] CtrAnion gap ecpgtdjzboa3010-61-21 08:49:00* Test Item Value Reference Range Interpretation Comme nts Anion Gap (test code = 36809374) 16.8 [facility] CtrCalcium dfsfk1193-92-28 08:49:00* Test Item Value Reference Range Interpretation Comme nts Calcium Level (test code = 02060707) 8.9 [facility] CtrBilirubin rqtuxj0940-03-23 08:49:00* Test Item Value Reference Range Interpretation Comme nts Direct Bilirubin (test code = 1968-7) 0.12 [facility] CtrALT (SGPT) ser/guft4962-32-10 08:49:00* Test Item Value Reference Range Interpretation Comme nts Alanine Aminotransferase (AL T/SGPT) (test code = 1742-6) 28 [facility] DzdMensrz2872-99-45 08:49:00* Test Item Value Reference Range Interpretation Comme nts Lipase (test code = 70527667) 35 [facility] CtrALP ser/rcbj9622-35-48 08:49:00* Test Item Value Reference Range Interpretation Comme nts Total Alkaline Phosphatase ( test code = 6768-6) 97 [facility] CtrAbsolute eosinophil mhpbv4181-58-89 08:29:00* Test Item Value Reference Range Interpretation Comme nts Eosinophils # (Auto) (test c ode = FTR8074) 0.12 [facility] CtrRBC oflrh4484-50-85 08:29:00* Test Item Value Reference Range Interpretation Comme nts Red Blood Count (test code = 07826375) 4.17 [facility] DwpDvchqldjjj1715-14-91 08:29:00* Test Item Value Reference Range Interpretation Comme nts Hematocrit (test code = 60078446) 39.8 [facility] CtrMCV (mean corpuscular volume) determination 2023-12-26 08:29:00* Test Item Value Reference Range Interpretation Comme [facility] Mean Corpuscular Volume (benny t code = 24227-7) 95.4 [facility] CtrMean corpuscular hemoglobin (MCH) determination 2023-12-26 08:29:00* Test Item Value Reference Range Interpretation Comme [facility] Mean Corpuscular Hemoglobin (test code = 09269864) 32.6 [facility] CtrMean corpuscular hemoglobin concentration (MCHC) qvmzxdiywzwqv2773-12-98 08:29:00* Test Item Value Reference Range Interpretation Comme [facility] Mean Corpuscular Hemoglobin Concent (test code = 82074754) 34.2 [facility] CtrRBC distribution width coefficient of variation 2023-12-26 08:29:00* Test Item Value Reference Range Interpretation Comme [facility] Red Cell Distribution Width (test code = 33873259) 11.9 [facility] CtrPlatelet bmamj4122-12-49 08:29:00* Test Item Value Reference Range Interpretation Comme [facility] Platelet Count (test code = 07971171) 295 [facility] CtrMean platelet bwzqmq8566-84-28 08:29:00* Test Item Value Reference Range Interpretation Comme [facility] Mean Platelet Volume (test c ode = 26998987) 9.2 [facility] CtrNeutrophils seg % odk5036-85-89 08:29:00* Test Item Value Reference Range Interpretation Comme [facility] Neutrophils (%) (Auto) (test code = 11296-3) 74.8 [facility] CtrAbsolute immature granulocyte xxnbq8120-28-51 08:29:00* Test Item Value Reference Range Interpretation Comme [facility] Absolute Immature Granulocyt e (auto (test code = 40551-0) 0.04 [facility] CtrBlood band neutrophils count (number/volume) 2023-12-26 08:29:00* Test Item Value Reference Range Interpretation Comme [facility] Neutrophils # (Auto) (test c ode = 94050-8) 7.46 [facility] CtrAbsolute lymphocyte cuidc4506-34-62 08:29:00* Test Item Value Reference Range Interpretation Comme [facility] Lymphocytes # (Auto) (test c ode = 08061-7) 1.30 [facility] CtrAbsolute basophil rwsyn1608-62-28 08:29:00* Test Item Value Reference Range Interpretation Comme nts Basophils # (Auto) (test cod e = 43181127) 0.02 [facility] CtrAbsolute NR uahio6363-55-61 08:29:00* Test Item Value Reference Range Interpretation Comme nts Nucleated Red Blood Cells # (test code = 135343584) 0 [facility] Consult Notes Date/Time Note Provider Source 2025-02-05 09:26:10 Reason For Consult Persistent nausea vomiting, cholelithiasis History Of Present Illness Pedro Feldman is a 59 y.o. male with PMH of GERD, PSH of perforated diverticulitis status post reversal (1989) who presents with 2 weeks of worsening nausea and vomiting and abdominal pain. Previously presented back in November with similar symptoms however with persistent dysphagia, globus sensation. This admission patient states that the pain is dull, crampy without any specific alleviating or exacerbating factors. EGD was completed yesterday which demonstrated esophagitis at the GE junction otherwise normal stomach and duodenum. His last colonoscopy was performed at outside hospital last year and was reported normal. He denies fevers, chills, recent travel, sick contacts, hematochezia, hematemesis. Past Medical History GERD Prediabetes Diverticulosis Surgical History Colostomy status post reversal (1989) Social History He reports that he has never smoked. He has never used smokeless tobacco. He reports that he does not drink alcohol. No history on file for drug use. Allergies Patient has no known allergies. Medications Medications Prior to Admission Medication Sig Dispense Refill Last Dose/Taking baclofen (Lioresal) 5 MG tablet Take 5 mg by mouth 1 time each day. 02/02/2025 escitalopram (Lexapro) 10 MG tablet Take 10 mg by mouth 1 time each day. ondansetron (Zofran) 4 MG tablet Take 1 tablet by mouth every 6 hours during the day. pantoprazole (ProtoNix) 40 MG EC tablet Take 40 mg by mouth in the morning. Take before meals. sucralfate (Carafate) 1 g tablet Take 1 g by mouth in the morning and 1 g in the evening. Take after meals. Review of Systems General: No fever, chills, nightsweats, or fatigue Skin: No rashes, sores, itching, or bruising HEENT: No trauma, no change in vision or hearing, no sore throat Nose/Sinuses: No epistaxis, rhinorrhea, or sneezing Mouth/Throat/Neck: No sores, bleeding, hoarseness, or vocal changes Respiratory: No wheezing, shortness or breath, cough, or hemoptysis Cardiac: No tachycardia, dyspnea on exertion, or orthopnea Gastrointestinal: Positive for abdominal pain, nausea, vomiting Urinary: No dysuria, hematuria, or incontinence Genital: No dysuria, discharge, lesions. Normal flow Vascular: No leg edema, or claudication Musculoskeletal: No myalgias or arthralgias Neurological: No syncope, seizures, headaches, changes in sensation, or weakness Hematology: No easy bruising, bleeding, or lymphadenopathy Endocrine: No heat or cold intolerance, hair loss, or weight changes Physical Exam General: GCS 15, awake, alert, in no apparent distress HEENT: normocephalic, atraumatic, PEERLA, extraocular movements are intact, trachea midline, no masses noted Lungs: symmetric chest expansion Heart: regular rate and rhythm Abdomen: soft, non-distended, non-tender Extremities: No edema, palpable pulses in all extremities Musculoskeletal: full range of motion in all extremities Neuro: CN's 2-12 grossly intact Last Recorded Vitals Blood pressure 107/60, pulse 61, temperature 36.7 ?C (98.1 ?F), resp. rate 16, height 1.549 m (5' 1"), weight 75.8 kg (167 lb 1.7 oz), SpO2 100%. Body mass index is 31.57 kg/m?. Relevant Results Pertinent Labs : Lab Results Component Value Date WBC 9.62 02/05/2025 Hgb 12.3 (L) 02/05/2025 Hct 35.9 (L) 02/05/2025 Plt Count 273 02/05/2025 Lab Results Component Value Date Sodium Lvl 141 02/05/2025 Potassium Lvl 3.8 02/05/2025 Chloride Lvl 106 02/05/2025 CO2 Lvl 25.8 02/05/2025 BUN <7 (L) 02/05/2025 Creatinine Lvl 0.68 (L) 02/05/2025 Glucose Lvl 99 02/05/2025 Lab Results Component Value Date AST 30 02/05/2025 ALT 21 02/05/2025 Alkaline Phosphatase 75 02/05/2025 Assessment & Plan Intractable nausea and vomiting Pedro Feldman is a 59 y.o. male with PMH of GERD, PSH of perforated diverticulitis status post reversal (1989) who presents with 2 weeks of worsening nausea and vomiting and abdominal pain. Previously presented back in November with similar symptoms however with persistent dysphagia, globus sensation. This admission patient states that the pain is dull, crampy without any specific alleviating or exacerbating factors. AF, VSS on RA. laboratory value demonstrates T. bili 1.23 (2.0). No evidence of transaminitis. WBC 9.6, hemoglobin 12.3. CT A/P demonstrates mildly distended gallbladder with tiny gallstones. Right upper quadrant ultrasound demonstrates cholelithiasis without evidence of cholecystitis MRCP demonstrates multiple gallstones with no biliary duct dilation or evidence of choledocholithiasis 02/04/2025-EGD with GI demonstrates esophagitis at the GE junction Plan: NPO, MIVF Pending HIDA scan Continue PPI Continue as needed Zofran/Reglan for nausea control General Surgery will continue to follow Dane Ruiz MD [facility] General Surgery PGY-4 Cholelithiasis JASPREET (acute kidney injury) (HCC) Dehydration History of esophagitis Serum total bilirubin elevated Cosigned by Lindsay Anaya MD at 02/05/2025 2:20 PM CDT Associated attestation - Lindsay Anaya MD - 02/05/2025 2:20 PM CDT I have seen and examined the patient with Dr. Ruiz on February 05, 2025. I reviewed the consultation note as well as pertinent radiology and laboratory. I agree with assessment of 59-year-old gentleman with previous history of gastroesophageal reflux disease as well as a remote history of perforated diverticulitis status post resection with colostomy with reversal of colostomy. He had presented in November with similar symptoms however had dysphagia at that point and globus sensation. He comes in today with similar sensation as well as now EGD findings of esophagitis. He did have gallstones on his imaging. This is a known diagnosis. Will go ahead and get a HIDA scan to see if there is any acute issues. If not we will go ahead and give him his diet and plan on interval cholecystectomy at some point. All questions answered. Lindsay Anaya MD, FACS, EDOUARD boarding specialist, [facility] General Surgery [facility] 2025-02-04 10:57:14 Associated Order(s): IP CONSULT TO GASTROENTEROLOGY Reason For Consult Nausea, vomiting, abdominal pain, abnormal imaging, cholelithiasis, abnormal liver function test History Of Present Illness Pedro Feldman is a 59 y.o. male presenting with nausea, vomiting, abdominal pain. Obvious upper abdominal, dull, crampy without any specific alleviating exacerbating factors. Denies any NSAID use, is not on any antiplatelet or anticoagulants. Symptoms started after he ate out at a restaurant, felt like he was having food poisoning but continues to have symptoms. Denies any NSAID use, is not on any antiplatelet or anticoagulants. When he was here he upper GI was done that was reviewed that is negative.. Here his white count is 14 down down to 7. He had a CT abdomen pelvis done that showed moderate distended stomach and distal esophagus consistent with reflux. Mildly dilated gallbladder was also noted. Multiple stones were noted in the gallbladder and it is slightly higher this morning I have been asked see him for further evaluation Past Medical History He has no past medical history on file. Surgical History He has no past surgical history on file. Social History He reports that he has never smoked. He has never used smokeless tobacco. He reports that he does not drink alcohol. No history on file for drug use. Allergies Patient has no known allergies. Medications Medications Prior to Admission Medication Sig Dispense Refill Last Dose/Taking baclofen (Lioresal) 5 MG tablet Take 5 mg by mouth 1 time each day. 02/02/2025 escitalopram (Lexapro) 10 MG tablet Take 10 mg by mouth 1 time each day. ondansetron (Zofran) 4 MG tablet Take 1 tablet by mouth every 6 hours during the day. pantoprazole (ProtoNix) 40 MG EC tablet Take 40 mg by mouth in the morning. Take before meals. sucralfate (Carafate) 1 g tablet Take 1 g by mouth in the morning and 1 g in the evening. Take after meals. Review of Systems As per HPI all other 12 point system negative Physical Exam Constitutional: In NAD, normal appearance. Not ill-appearing or toxic-appearing. Head: Atraumatic. Eyes: PERRL ENT: Clear Pulmonary: CTAB, No respiratory distress. No stridor. CV: RRR, s1s2 Abdominal: Soft nontender nondistended Neurological: No focal deficits Extremities: No c/c/e Psychiatric: Mood and Affect: Normal Derm: No ulcers or rash Lymphatics: No LAD noted. Last Recorded Vitals Blood pressure 118/64, pulse 74, temperature 36.3 ?C (97.3 ?F), temperature source Temporal, resp. rate 12, height 1.549 m (5' 1"), weight 75.8 kg (167 lb 1.7 oz), SpO2 99%. Body mass index is 31.57 kg/m?. Relevant Results White count is 14. Cologuard stool otherwise relatively within normal limits. BUN and creatinine is normal. CT abdomen pelvis reviewed by me. Moderate distended stomach Gallstones noted Mildly distended gallbladder noted Assessment & Plan Intractable nausea and vomiting Cholelithiasis JASPREET (acute kidney injury) (HCC) Dehydration History of esophagitis Nausea, vomiting, abdominal pain, abnormal imaging, cholelithiasis, abnormal liver function test Plan: NPO PPI Schedule zofran Schedule reglan MRCP to rule out choledocholithiasis Risks and benefits of EGD were discussed (including but not limited to bleeding, infection and perforation requiring surgery), inspite of those risks patient is agreeable to have the procedure. Will set patient up for EGD today [facility] 2024-12-09 11:45:05 Associated Order(s): IP CONSULT TO GASTROENTEROLOGY Reason For Consult Nausea, vomiting, regurgitation History Of Present Illness Pedro Feldman is a 59 y.o. male presenting with nausea, vomiting, regurgitation. He has had several EGDs done along that have been normal. Symptoms have been ongoing for the last year. He denies any black stool or blood in the stool. Has occasional epigastric discomfort but when he eats shortly after, within a few minutes he has regurgitation of foods to solids and liquids and pills. There is some concern for achalasia. And patient was referred to the ER for further evaluation.. Past Medical History He has no past medical history on file. Surgical History He has no past surgical history on file. Social History He reports that he has never smoked. He has never used smokeless tobacco. He reports that he does not drink alcohol. No history on file for drug use. Allergies Patient has no known allergies. Medications Medications Prior to Admission Medication Sig Dispense Refill Last Dose/Taking baclofen (Lioresal) 5 MG tablet Take 5 mg by mouth at bedtime. Taking chlorproMAZINE (Thorazine) 10 MG tablet Take 10 mg by mouth if needed for nausea (hiccups). Taking As Needed dicyclomine (Bentyl) 20 MG tablet Take 20 mg by mouth 4 times a day as needed (Abdominal pain). Taking As Needed ondansetron (Zofran) 4 MG tablet Take 1 tablet by mouth every 6 hours during the day. Taking pantoprazole (ProtoNix) 40 MG EC tablet Take 40 mg by mouth in the morning. Take before meals. Taking Review of Systems As per HPI all other 12 point review system negative Physical Exam Constitutional: In NAD, normal appearance. Not ill-appearing or toxic-appearing. Head: Atraumatic. Eyes: PERRL ENT: Clear Pulmonary: CTAB, No respiratory distress. No stridor. CV: RRR, s1s2 Abdominal: Soft nontender nondistended Neurological: No focal deficits Extremities: No c/c/e Psychiatric: Mood and Affect: Normal Derm: No ulcers or rash Lymphatics: No LAD noted. Last Recorded Vitals Blood pressure 124/68, pulse 56, temperature 36.7 ?C (98.1 ?F), resp. rate 18, height 1.676 m (5' 6"), weight 82.4 kg (181 lb 10.5 oz), SpO2 98%. Body mass index is 29.32 kg/m?. Relevant Results LFTs are normal. CBC is normal. CT abdomen pelvis reviewed by me shows no GI luminal abnormalities. Few gallstones noted. Assessment & Plan Intractable nausea and vomiting Nausea and vomiting Abdominal pain Diverticulosis Cholelithiasis Gall bladder polyp Gastritis Choking sensation Esophagitis Hypokalemia Nausea, vomiting, regurgitation Plan Patient had several EGDs done that have been normal CT scan shows no abnormalities and LFTs are normal His pain is not right upper quadrant or shortly after meals that would suggest gallbladder issue There has been some concern regarding achalasia, will obtain upper GI If upper GI shows that there is narrowing in the distal esophagus then patient may benefit from EGD with Botox and dilation and can then get outpatient manometry also. Above plan of care discussed with admitting team and surgery service who agree with above plan. [facility] 2024-12-09 09:20:06 Associated Order(s): IP CONSULT TO GENERAL SURGERY Images from the original note were not included. Reason For Consult Cholelithiasis, intractable nausea vomiting History Of Present Illness Pedro Feldman is a 59 y.o. male presenting with intractable nausea and vomiting which has been going on for about 11 months. 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 He states about 11 months ago he started to have some dysphagia with nausea and vomiting within 2 minutes of ingestion of solids and now liquids as well. He has had 2 endoscopies and 1 colonoscopy. He is undergone some imaging as well. The patient states that when he is vomiting he feels a choking sensation. They contacted their primary care physician who suggested immediate workup at this point. He came to [facility] for further evaluation and management. His prior records are not available on Care Everywhere or with the patient for review. History is from the patient and his family in the room. Seen back over the 11 months the patient states that he has been having some soreness in his central and upper abdomen as well as on the left side. He also complains of gas and burping sensation all the time. He is able to keep down enough fluids do not get dehydrated. He has had a history of diverticular disease status post resection then ostomy then takedown and subsequent hernia repair in the last 10 years. His workup has been via endoscopy right now as well as imaging. I do not think he has had an upper GI series. He has not had any other studies, such as gastric emptying study, manometry, Larry probe. He specifically does not have any postprandial pain associated with fatty foods or spicy foods. He has been eating healthy he states but his symptoms still exist. Again these are immediate after ingestion. His pain is mostly such as a bloating or indigestion type of pain. He also described this more as a tickle. The pain does self resolve after vomiting. Does not radiate to his back or his shoulders. Past Medical History He has no past medical history on file. Surgical History He has no past surgical history on file. Social History He reports that he has never smoked. He has never used smokeless tobacco. He reports that he does not drink alcohol. No history on file for drug use. Allergies Patient has no known allergies. Medications Medications Prior to Admission Medication Sig Dispense Refill Last Dose/Taking baclofen (Lioresal) 5 MG tablet Take 5 mg by mouth at bedtime. Taking chlorproMAZINE (Thorazine) 10 MG tablet Take 10 mg by mouth if needed for nausea (hiccups). Taking As Needed dicyclomine (Bentyl) 20 MG tablet Take 20 mg by mouth 4 times a day as needed (Abdominal pain). Taking As Needed ondansetron (Zofran) 4 MG tablet Take 1 tablet by mouth every 6 hours during the day. Taking pantoprazole (ProtoNix) 40 MG EC tablet Take 40 mg by mouth in the morning. Take before meals. Taking Review of Systems Review of Systems Physical Exam Physical Exam: Vitals reviewed. Constitutional: General: He is not in acute distress. Appearance: Normal appearance. He is obese. He is not ill-appearing. HENT: Head: Normocephalic. Nose: Nose normal. Mouth/Throat: Mouth: Mucous membranes are moist. Eyes: General: No scleral icterus. Extraocular Movements: Extraocular movements intact. Conjunctiva/sclera: Conjunctivae normal. Cardiovascular: Rate and Rhythm: Normal rate. Pulmonary: Effort: Pulmonary effort is normal. Abdominal: General: There is no distension. Palpations: Abdomen is soft. Tenderness: There is abdominal tenderness. Comments: His pain is in the distribution of his colon mostly. He does not have specific right subcostal pain at the location of his gallbladder correlating with his CT scan on deep inspiration or expiration. He does not have any Rodríguez sign or even a mild to Rodríguez sign. Musculoskeletal: General: Normal range of motion. Cervical back: Normal range of motion. Right lower leg: No edema. Left lower leg: No edema. Skin: General: Skin is warm and dry. Neurological: General: No focal deficit present. Mental Status: He is alert and oriented to person, place, and time. Psychiatric: Mood and Affect: Mood normal. Behavior: Behavior normal. Thought Content: Thought content normal. Judgment: Judgment normal. Last Recorded Vitals Blood pressure 124/68, pulse 56, temperature 36.7 ?C (98.1 ?F), resp. rate 18, height 1.676 m (5' 6"), weight 82.4 kg (181 lb 10.5 oz), SpO2 98%. Body mass index is 29.32 kg/m?. Relevant Results Lab Results Component Value Date WBC 7.46 12/09/2024 Hgb 12.4 12/09/2024 Hct 36.4 (L) 12/09/2024 MCV 94.3 12/09/2024 Plt Count 288 12/09/2024 Lab Results Component Value Date Glucose Lvl 112 (H) 12/09/2024 Calcium Lvl 8.0 (L) 12/09/2024 Sodium Lvl 139 12/09/2024 Potassium Lvl 3.0 (LL) 12/09/2024 CO2 Lvl 28.9 12/09/2024 Chloride Lvl 105 12/09/2024 BUN <7 (L) 12/09/2024 Creatinine Lvl 0.79 12/09/2024 Lab Results Component Value Date ALT 21 12/08/2024 AST 27 12/08/2024 Alkaline Phosphatase 101 12/08/2024 Bilirubin Total 0.78 12/08/2024 === 12/08/24 === CT ABDOMEN PELVIS W IV CONTRAST - Impression - 1. No acute abdominal or pelvic abnormality on CT. 2. Mild descending and mild to moderate sigmoid colonic diverticulosis, without CT evidence of diverticulitis. 3. Small dependent calcified gallstones seen. No gallbladder wall thickening or pericholecystic fluid. These are not well seen on the recent gallbladder ultrasound. 4. Other nonacute findings, as noted above. SL: [id number] Electronically signed by: Ashish Solitario MD 12/08/2024 08:20 PM CDT RP === 12/08/24 === US GALLBLADDER - Impression - 1. 0.5 cm probable gallbladder polyp. No definite stones. No sonographic evidence for acute cholecystitis. 2. Hepatic steatosis. 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 Currently he does not have any intractable nausea and vomiting. We have not tried any liquids on him currently. His stated that the next workup was to see if he has achalasia or any kind of esophageal dysfunction or dysphagia. I think his pain is more consistent with an upper GI/esophageal/gastric issue. He does have some bloating that can be subscribe to his diverticular disease. Choking sensation This can be due to the above. Abdominal pain His abdominal pain again is due to the above. Diverticulosis He may have some soreness in his colon overall but the CT scan does not show any signs of diverticulitis. His diverticular disease were more in the descending and sigmoid colon area. Cholelithiasis He does have none dependent or no stones that are lodged in the neck of the gallbladder. He has no biliary duct dilatation. He has no swelling around his gallbladder. He has no signs of cholecystitis or any kind inflammation on his ultrasound or CT scan. I have discussed the patient with Dr. Robledo and will hold off on the HIDA scan for right now and order an upper GI series to see if he has got any kind of esophageal dysphagia at this point. Will also get a barium swallow overall. Depending on this study we will go ahead and start him on clear liquids subsequently. I do not think that there is any acute issue other than having the intractable nausea and vomiting which was worsened from his chronic issue. I do not think he needs a gallbladder operation as this would not solve or diagnose any other issues that are currently being worked up as an outpatient. I think at some point he may need his gallbladder out but this is not his issue currently. Lindsay Anaya MD, FACS, FASMBS boarding specialist, [facility] History and Physical Notes Date/Time Note Provider Source 2025-02-03 15:54:57 Hospitalist Admission History and Physical Consults History Of Present Illness Pedro Feldman is a 59-year-old man with history of gastroesophageal reflux, gastritis who basically presented with 2 weeks of intractable nausea and vomiting. Patient states the symptoms has been ongoing since last admission. Patient was recently here about 2 months ago was discharged on 12/10/2024 secondary to nausea and vomiting. GI has seen the patient as well as surgery at that time and which reported no surgical issues at that time. This time patient states that about 2 weeks ago he went to [employer] and ate a chicken sandwich and he possibly has some food poisoning afterwards and since then has not been able to tolerate much of a diet. Patient appears to be quite dehydrated and acute renal failure and not able to tolerate any liquids or solids at this time. Patient will be admitted for further evaluation at this time Review of Systems Complete 14 point review of systems obtained and negative other than what is mentioned in HPI. Past Medical History As per HPI Surgical History History of diverticu-itis surgery Family History No family history on file. Social History He reports that he has never smoked. He has never used smokeless tobacco. He reports that he does not drink alcohol. No history on file for drug use. Allergies Patient has no known allergies. Medications Prior to Admission medications Medication Sig Start Date End Date Taking? Authorizing Provider escitalopram (Lexapro) 10 MG tablet Take 10 mg by mouth 1 time each day. 01/26/25 GENERIC EXTERNAL DATA PROVIDER ondansetron (Zofran) 4 MG tablet Take 1 tablet by mouth every 6 hours during the day. 03/24/24 GENERIC EXTERNAL DATA PROVIDER pantoprazole (ProtoNix) 40 MG EC tablet Take 40 mg by mouth in the morning. Take before meals. 12/04/24 GENERIC EXTERNAL DATA PROVIDER chlorproMAZINE (Thorazine) 10 MG tablet Take 10 mg by mouth if needed for nausea (hiccups). 03/06/24 02/03/25 GENERIC EXTERNAL DATA PROVIDER dicyclomine (Bentyl) 20 MG tablet Take 20 mg by mouth 4 times a day as needed (Abdominal pain). 12/03/24 02/03/25 GENERIC EXTERNAL DATA PROVIDER , ED Medication Administration from 02/03/2025 1031 to 02/03/2025 1554 Date/Time Order Dose Route Action Action by 02/03/2025 1058 CDT famotidine (Pepcid) injection 20 mg 20 mg Intravenous Given Agus, S 02/03/2025 1058 CDT ondansetron (Zofran) injection 4 mg 4 mg Intravenous Given Agus, S 02/03/2025 1058 CDT sodium chloride 0.9 % bolus 1,000 mL 1,000 mL Intravenous New Bag Agus, S 02/03/2025 1154 CDT iohexol (OMNIPaque) 350 MG/ML injection 75 mL 75 mL Intravenous Given Mican, D 02/03/2025 1158 CDT sodium chloride 0.9 % bolus 1,000 mL 0 mL Intravenous Stopped , B 02/03/2025 1211 CDT ondansetron (Zofran) injection 4 mg 4 mg Intravenous Given Shaju, B 02/03/2025 1217 CDT magnesium sulfate in D5W IVPB 1 g 1 g Intravenous New Bag Shaju, B 02/03/2025 1225 CDT potassium chloride IVPB 10 mEq 10 mEq Intravenous New Bag Shaju, B 02/03/2025 1243 CDT sodium chloride 0.9 % bolus 500 mL 500 mL Intravenous New Bag Agus, S 02/03/2025 1249 CDT potassium chloride IVPB 10 mEq 0 mEq Intravenous Stopped Agus, S 02/03/2025 1317 CDT magnesium sulfate in D5W IVPB 1 g 0 g Intravenous Stopped Agus, S 02/03/2025 1332 CDT potassium chloride IVPB 10 mEq 10 mEq Intravenous New Bag Agus, S 02/03/2025 1349 CDT potassium chloride IVPB 10 mEq 0 mEq Intravenous Stopped Agus, S 02/03/2025 1452 CDT potassium chloride IVPB 10 mEq 10 mEq Intravenous New Bag Agus, S 02/03/2025 1500 CDT GI COCKTAIL (MAALOX/LIDOCAINE) - CMPD suspension 15 mL -- Oral Canceled Entry Gary Macario 02/03/2025 1525 CDT alum & mag hydroxide-simeth (Mylanta) 200-200-20 MG/5ML oral suspension 30 mL 30 mL Oral Given Agus, S 02/03/20251524 CDT lidocaine (Xylocaine) 2 % mouth solution 15 mL 15 mL Oral Given Agus, S 02/03/2025 152 CDT enoxaparin (Lovenox) syringe 40 mg 40 mg Subcutaneous Given Agus, S Last Recorded Vitals Blood pressure (!) 139/92, pulse 68, temperature 36.8 ?C (98.3 ?F), temperature source Oral, resp. rate 19, height 1.549 m (5' 1"), weight 75.8 kg (167 lb 1.7 oz), SpO2 100%. Physical Exam GEN: NAD, WN/WD, Appears well HEENT: N/AT, Normal conjunctiva, PERRLA, moist mucous membranes Neck: Supple, no lymphadenopathy, trachea appears to be midline Chest: CTAB, no c/w/r CV: RRR, S1, S2 GI: +BS, soft, mild distention Ext: No cyanosis, clubbing. or edema Neuro: AO x 3, No gross deficit Skin: No rashes Relevant Results Labs Reviewed COMPREHENSIVE METABOLIC PANEL - Abnormal Result Value Sodium Lvl 133 (*) Potassium Lvl 2.9 (*) Chloride Lvl 93 (*) CO2 Lvl 26.1 Anion Gap 16.8 Glucose Lvl 150 (*) Creatinine Lvl 2.14 (*) BUN 22 B/C Ratio 10 Protein 9.7 (*) Albumin Lvl 5.1 (*) Globulin, Calc 4.6 (*) Albumin/Globulin Ratio 1.11 Calcium Lvl 10.3 ALT 28 AST 36 Alkaline Phosphatase 116 Bilirubin Total 1.41 (*) eGFR 35 (*) UA WITH CULTURE IF INDICATED - Abnormal UA Color Ayla (*) UA Turbidity Slight Cloudy (*) UA Spec Grav 1.027 UA pH 5.0 UA Protein 100 (*) UA Glucose Negative UA Ketones Negative UA Bilirubin Negative UA Blood Negative UA Urobilinogen 2.0 (*) UA Nitrite Negative UA Leuk Esterase Negative UA Ascorbic Acid 40 (*) UA Sq Epi Occasional UA WBC 2 UA RBC (Num) 5 (*) UA Mucus Few UA Hyaline Casts 103 (*) COMPLETE BLOOD COUNT - Abnormal WBC 14.69 (*) RBC 5.11 NRBC % 0.0 Hgb 16.4 Hct 47.0 MCV 92.0 MCH 32.1 MCHC 34.9 RDW - SD 43.6 (*) Plt Count 502 (*) MPV 9.1 AUTOMATED DIFFERENTIAL - Abnormal Segs % 77.3 (*) Lymphs % 10.2 (*) Monos % 11.8 Eos % 0.1 (*) Basos % 0.2 Immature Grans % 0.4 Segs # 11.35 (*) Lymphs # 1.50 Monos # 1.73 (*) Eos # 0.02 Basos # 0.03 Imm Grans # 0.06 PROTIME-INR - Normal Prothrombin Time (PT) 13.6 INR 1.02 PTT - Normal PTT 26.4 LIPASE LEVEL - Normal Lipase Lvl 49 COMPLETE BLOOD COUNT W/DIFF AND PLATELET Narrative: The following orders were created for panel order Complete Blood Count w/Diff and Platelet. Procedure Abnormality Status --------- ------ Complete Blood Count[[id number]] Abnormal Final result Automated Differential[[id number]] Abnormal Final result Please view results for these tests on the individual orders. US gallbladder Final Result 1. Multiple mobile gallstones seen, the largest measuring 1 cm. Some gallstones seen in the gallbladder neck region. Shadowing seen in the gallbladder fundus region, which correlates with the suspected gallbladder wall calcification on the CT. No gallbladder wall thickening or pericholecystic fluid seen. No sonographic evidence of acute cholecystitis. No biliary ductal dilatation. 2. Mild to moderate heterogeneous increased liver parenchymal echotexture, suggestive of fatty infiltration of the liver. SL: [id number] Electronically signed by: Ashish Solitario MD 02/03/2025 02:[address] ABDOMEN PELVIS W IV CONTRAST Final Result 1. 3. Moderately distended stomach and distal esophagus with fluid, consistent with gastroesophageal reflux. 2. Mildly distended gallbladder. Tiny gallstone seen. Some curvilinear calcifications of the gallbladder fundus seen. Sonography may be performed, if there is further clinical concern. 3. Mild descending and moderate proximal sigmoid colonic diverticulosis, without CT evidence of diverticulitis. 4. Other nonacute findings, as noted above. Some motion artifact seen, which limits evaluation. SL: [id number] Electronically signed by: Ashish Solitario MD 02/03/2025 12:27 PM CDT No orders to display Assessment & Plan Intractable nausea and vomiting Still ongoing intractable nausea and vomiting Possible gastroparesis will start patient back scheduled Reglan before meals Continue to monitor closely Consulted GI for further evaluation JASPREET (acute kidney injury) (HCC) Likely secondary to dehydration, continue IV fluids recheck labs for tomorrow Dehydration Continue IV fluids History of esophagitis PPI Cholelithiasis Ultrasound still so cholelithiasis Asymptomatic at this time no elevation in LFTs May consider HIDA if EGD is negative discussed with GI Possible surgical evaluation if EGD is negative None Specified=Full Code DVT prophylaxis: SCDs Disposition: Observation status. GI has been consulted with further recommendations possible EGD tomorrow Plan has been discussed with patient and family at bedside Weston Cali DO [facility] 2024-12-08 20:49:57 Associated Order(s): Inpatient consult to Hospitalist Inpatient consult to Hospitalist Performed by: Joe Aguirre MD Authorized by: PATRICIA Begum Chief Complaint Patient presents with Vomiting X2 weeks, diagnosed with gallstones and GERD but still vomiting and burping History Of Present Illness Pedro Feldman is a 59 y.o. male with past medical history of gastritis, recently diagnosed gallstones, history of complicated diverticulitis s/p laparotomy [id number] presenting to the ED with chief complaints of abdominal pain, N/V. Patient reports symptoms have been ongoing for the past 11 months, he had 2 EGDs done which revealed esophagitis, hiatal hernia and gastritis. In the past 2 weeks he had worsening symptoms of nausea, vomiting and cramping epigastric abdominal pain. No aggravating or relieving factors. Denies any fever, chills, diarrhea, constipation. No recent travel or sick contacts. He additionally reports " choking sensation" and "foreign body sensation" He was scheduled for an outpatient speech therapy evaluation ordered by PCP. In the ED he was hypertensive otherwise stable vitals, labs were normal electrolytes, LFTs, CBC unremarkable, urinalysis without UTI, CT abdomen with no acute pathology. Mild to moderate sigmoid colonic diverticulosis seen without evidence of diverticulitis. Small dependent calcified gallstones. Ultrasound of the gallbladder revealed gallbladder polyp and hepatosteatosis. Patient admitted to medicine for further evaluation. Past Medical History He has no past medical history on file. Surgical History He has no past surgical history on file. Family History No family history on file. Social History He reports that he has never smoked. He has never used smokeless tobacco. No history on file for alcohol use and drug use. Allergies Patient has no known allergies. Medications Prior to Admission medications Not on File Current Facility-Administered Medications: Insert peripheral IV, , , Once AND Saline lock IV, , , Once AND sodium chloride (NS) 0.9 % flush 10 mL, 10 mL, Intravenous, PRN, PATRICIA Begum No current outpatient medications on file. ROS 14 point ROS negative except as per above Physical exam Gen: awake & alert oriented x3 HEENT: head atraumatic normocephalic pupils are equal round reactive extraocular muscles are intact, no JVD no thyromegaly, neck supple, no lymphadenopathy. Chest: clear to auscultation bilaterally. CVS: regular rate rhythm no murmurs rubs or gallops. GI: Abdomen soft, nontender to palpation, nondistended bowel sounds present. Extremities: with no clubbing cyanosis or edema. Neuro: no focal neuro deficits cranial nerves are intact. Psycho: normal affect Skin: with no rashes no erythema. BP (!) 165/94 (BP Location: Left arm, Patient Position: Sitting) | Pulse 78 | Temp 36.6 ?C (97.8 ?F) (Oral) | Resp 20 | Ht 1.676 m (5' 6") | Wt 82.4 kg (181 lb 10.5 oz) | SpO2 99% | BMI 29.32 kg/m? Relevant Results Lab Results Component Value Date WBC 10.02 12/08/2024 Hgb 14.4 12/08/2024 MCV 94.2 12/08/2024 Plt Count 370 12/08/2024 Lab Results Component Value Date Sodium Lvl 137 12/08/2024 Potassium Lvl 3.9 12/08/2024 Chloride Lvl 100 12/08/2024 CO2 Lvl 31.1 (H) 12/08/2024 BUN 8 (L) 12/08/2024 Creatinine Lvl 1.03 12/08/2024 Glucose Lvl 104 (H) 12/08/2024 Lab Results Component Value Date AST 27 12/08/2024 ALT 21 12/08/2024 Alkaline Phosphatase 101 12/08/2024 CT ABDOMEN PELVIS W IV CONTRAST Final Result 1. No acute abdominal or pelvic abnormality on CT. 2. Mild descending and mild to moderate sigmoid colonic diverticulosis, without CT evidence of diverticulitis. 3. Small dependent calcified gallstones seen. No gallbladder wall thickening or pericholecystic fluid. These are not well seen on the recent gallbladder ultrasound. 4. Other nonacute findings, as noted above. SL: [id number] Electronically signed by: Ashish Solitario MD 12/08/2024 08:20 PM CDT RP US gallbladder Final Result 1. 0.5 cm probable gallbladder polyp. No definite stones. No sonographic evidence for acute cholecystitis. 2. Hepatic steatosis. Electronically signed by: Piedad Chang MD 12/08/2024 06:59 PM CDT RP XR abdomen 1 view Final Result 1. Nonobstructive bowel gas pattern. 2. Mild stool burden. Electronically signed by: Piedad Chang MD 12/08/2024 06:49 PM CDT RP Assessment & Plan Intractable nausea and vomiting Abdominal pain Unclear etiology, ? Gastritis/esophagitis ?symptomatic cholelithiasis. Patient is currently on follow-up with GI. He had 2 endoscopies done in the past year which revealed esophagitis/PUD (No reports available). Symptoms have been ongoing for the past 11 months and worsened in the past [address] abdomen, ultrasound reviewed as above. Of note, patient has history of complicated diverticulitis status postrepair in 1989. CT abdomen also revealed diverticulosis without evidence of diverticulitis. Labs are unremarkable Given persistent symptoms, surgery consulted in the ED (Dr. Anaya) appreciate recommendations Will consult GI in the a.m. Follow-up urine toxicology, A1c, ethanol levels N.p.o. after midnight for possible repeat EGD Cholelithiasis Gall bladder polyp Ultrasound reviewed, no evidence of cholecystitis Surgery on board will defer further imaging HIDA scan to surgery Patient will be n.p.o. IV fluids Trend LFTs Diverticulosis Known history, will continue laxatives Gastritis Esophagitis Continue PPIs, GI cocktail, sucralfate GI consult Choking sensation Patient reports choking sensation and foreign body sensation, possibly in the setting of esophagitis Speech therapy evaluation GI on board Prophylaxis SCDs, PPIs Current Diet: NPO Diet NPO except: Ice chips, Sips of clear liquids, Sips with meds [facility] 2024-01-13 12:49:24 XpertMD History & Physical DATE: 01/13/2024 SERVICE: Internal Medicine CHIEF COMPLAINT: Vomiting and Abdominal Pain HISTORY OF PRESENT ILLNESS Pedro Feldman is a 58 year old male who presents to [facility] with PMH of intestinal rupture and surgery in 1989 with reversal of colostomy 5 months later who presents today with concern of worsening abd pain,persistent hiccups, and vomiting x3 weeks. Per chart review, [facility] where it was negative other than gallstones. Was seen at [facility] again on 12/26 for same symptoms,and had ultrasound of the gallbladder which was unremarkable, and then discharged home. States the hiccups briefly resolved, but have returned, with associated diarrhea the last few days Still passing gas normally. Denies fever. States he is unable to keep anything down, and everything including water he immediately regurgitates. Lab work noted for WBC 15k, Bg 144, CO2 33, and CTAP with suggestion of SBO with cholelithiasis,hepatic steatosis, and mild esophagitis. Family at bedside also noted dark colored stool prior to admission, no new melena noted per patient. No abd pain or bleeding noted. ALLERGIES Pedro has No Known Allergies. MEDICATIONS Current Facility-Administered Medications: NaCl 0.9% (NS) bolus infusion 1,000 mL, 1,000 mL, IV Infusion, ONCE, Casa Mata MD Current Outpatient Medications: metoclopramide HCl 10 mg tablet, Take 1 tablet by mouth every 8 (eight) hours as needed (hiccups/vomiting)., Disp: 20 tablet, Rfl: 0 pantoprazole (PROTONIX) 40 mg EC tablet, Take 1 tablet by mouth in the morning., Disp: 14 tablet, Rfl: 0 Patient's Medications START taking these medications No medications on file CONTINUE taking these medications which have NOT CHANGED METOCLOPRAMIDE HCL 10 MG TABLET Take 1 tablet by mouth every 8 (eight) hours as needed (hiccups/vomiting). PANTOPRAZOLE (PROTONIX) 40 MG EC TABLET Take 1 tablet by mouth in the morning. START taking Modified Medications as Prescribed No medications on file STOP taking these medications No medications on file PAST MEDICAL HISTORY Past Medical History: Diagnosis Date GERD (gastroesophageal reflux disease) PAST SURGICAL HISTORY No past surgical history on file. PAST SOCIAL HISTORY Social History Socioeconomic History Marital status: PAST FAMILY HISTORY No family history on file. REVIEW OF SYSTEMS Patient endorses abd pain , L side PHYSICAL EXAMINATION General: Lying comfortably in no signs of any acute distress HEENT: Normocephalic atraumatic, extraocular muscles appear intact, mucosa moist, neck supple Heart: S1-S2 irregular and tachycardia Lungs: Clear to auscultation bilaterally, no rhonchi rales or wheezes noted GI: Soft, nontender, nondistended, positive bowel sounds ? quadrants Extremities: No clubbing, cyanosis or edema noted Neurologic: Cranial nerves II through XII appear grossly intact, no focal motor or sensory deficits noted Psychiatric: No anxiety or depression noted Vitals: 01/13/24 0922 01/13/24 1220 BP: (!) 172/100 122/78 Pulse: 74 73 Resp: 18 17 Temp: 36.4 ?C (97.5 ?F) TempSrc: Oral SpO2: 92% 100% Weight: 83.9 kg (185 lb) Height: 1.651 m (5' 5") LABS AND IMAGING Recent Results (from the past 24 hour(s)) CBC WITH DIFF Collection Time: 01/13/24 9:36 AM Result Value Ref Range WBC 15.24 (H) 4.20 - 10.70 10*3/?L RBC 4.36 4.26 - 5.52 10*6/?L HGB 14.3 12.2 - 16.4 g/dL HCT 41.1 38.4 - 49.3 % MCV 94.3 81.7 - 95.6 fL MCH 32.8 (H) 26.1 - 32.7 pg MCHC 34.8 31.2 - 35.0 g/dL RDW-SD 43.2 38.5 - 51.6 fL RDW-CV 12.5 12.1 - 15.4 % PLT 361 (H) 150 - 328 10*3/?L MPV 9.1 (L) 9.8 - 13.0 fL NRBC/100 WBC 0.0 0.0 - 10.0 /100 WBCs NRBC x10 3 <0.01 10*3/?L GRAN MAT (NEUT) % 83.4 % IMM GRAN % 0.30 % LYMPH % 6.9 % MONO % 8.7 % EOS % 0.5 % BASO % 0.2 % GRAN MAT x10 3 (ANC) 12.73 (H) 1.99 - 6.95 10*3/uL IMM GRAN x10 3 0.04 0.00 - 0.06 10*3/uL LYMPH x10 3 1.05 (L) 1.09 - 3.23 10*3/uL MONO x10 3 1.32 (H) 0.36 - 1.02 10*3/uL EOS x10 3 0.07 0.06 - 0.53 10*3/uL BASO x10 3 0.03 0.01 - 0.09 10*3/uL COMP. METABOLIC PANEL (31754) Collection Time: 01/13/24 9:36 AM Result Value Ref Range NA 136 135 - 145 mmol/L K 3.5 3.5 - 5.0 mmol/L CL 98 98 - 108 mmol/L CO2 TOTAL 33 (H) 23 - 31 mmol/L AGAP 5 2 - 16 BUN 12 7 - 23 mg/dL GLUCOSE 144 (H) 70 - 110 mg/dL CREATININE 0.75 0.60 - 1.25 mg/dL TOTAL BILI 1.5 (H) 0.1 - 1.1 mg/dL CALCIUM 9.3 8.6 - 10.6 mg/dL T PROTEIN 8.0 6.3 - 8.2 g/dL ALBUMIN 4.3 3.5 - 5.0 g/dL ALK PHOS 96 34 - 122 U/L ALTv 33 5 - 50 U/L AST(SGOT) 34 13 - 40 U/L eGFR 104.0 mL/min/1.73m2 LIPASE Collection Time: 01/13/24 9:36 AM Result Value Ref Range LIPASE 69 0 - 220 U/L TROPONIN I Collection Time: 01/13/24 9:36 AM Result Value Ref Range TROPONIN I 0.004 <=0.034 ng/mL Radiology CT ABDOMEN PELVIS W CONTRAST Result Date: 01/13/2024 Findings suspicious for small bowel obstruction with focal transition point at the left lower quadrant near the previously repaired left lower quadrant spigelian hernia. Cholelithiasis. Hepatic steatosis. Diverticulosis coli. Tiny hiatal hernia. Slight thickening of the distal esophagus may be related to mild esophagitis. ASSESSMENT AND PLAN Pedro Feldman is a 58 year old male who presents with: Suspected SBO Leukocytosis 2/2 to above Persistent hiccups Cholelithiasis Hepatic steatosis Mild esophagitis Reported melena Plan 01/12 -Suspected SBO w/ N/V- Surgery consulted in ED, NPO, IVF, NGT per team, pain control, antiemetics -Metabolic alkalosis- 2/2 to N/V from SBO -Leukocytosis 2/2 to above- Abx per surgery recs, monitor for s/s of infections -Persistent hiccups- PPI -Cholelithiasis- US gallbladder done previous admission, stable -Hepatic steatosis- ETOH cessation education -Mild esophagitis- stable, no complaints, PPI Resume home meds DVT prophy- lovenox AM labs Dispo:consult, labs Dicussed plan of care with patient, all questions answered. Further recommendations will be based upon this patient's clinical course. Leela Singer, MSN, CNC SET UP OPERATOR, ACNP-AG [facility] CLC Hospitalist Associated attestation - Aga James MD - 01/13/2024 4:48 PM CDT Agree WIRING TECHNICIAN-ACUTE CARE MIDLEVEL PROVIDER [facility] - Health Procedure Notes Date/Time Note Provider Source 2025-02-06 09:05:00 Operative Note Pre operative diagnosis: Biliary dyskinesia Postoperative diagnosis: Biliary dyskinesia Procedure: Laparoscopic cholecystectomy Surgeon: Denis Briggs M.D. Scalloper: None. EBL: 10 ml. Wound class: Clean contaminated Specimen: Gallbladder Implant: None Findings: Critical view obtained prior to clipping duct. Indications for procedure: Patient presented to the ED with abdominal pain. Clinical picture and imaging was consistent with biliary dyskinesia. We had a detailed discussion regarding the risks of laparoscopic cholecystectomy to include pain, bleeding, infection, hernia, bile leak, retained stone, need for postoperative ERCP, ductal injury, . Also discussed the potential for chronic bloating and diarrhea. Secondary to recurrent symptoms and pain the patient voiced understanding and opted to proceed. Procedure in detail: Prior to initiation of the procedure the risks and benefits were discussed in detail. A consent was signed. The patient was transported to the operating room and placed supine. A timeout was completed. General anesthesia was induced. The abdomen was prepped and draped in a normal sterile fashion. A 5 mm incision was made in the right upper quadrant. Trocar introduced via direct visualization with the Optiview technique. The abdomen was insufflated to 15 mmHg. An 11 mm trocar was placed in the periumbilical region. Additional 5 mm trocars were placed in the epigastric region and right lateral abdomen. The patient was placed in the reverse Trendelenburg position. Examination showed inflammatory changes around the infundibulum of the gallbladder. The dome was grasped and retracted towards the diaphragm muscles. Blunt dissection and hook electrocautery was used to dissected the omentum off the infundibulum of the gallbladder. The infundibulum was then grasped and rotated medially. The lateral peritoneal attachments were dissected with hook electrocautery. The infundibulum was then rotated laterally and the medial peritoneal attachments were dissected. The cystic duct was identified it was circumferentially dissected out. Its confluence with the common bile duct was seen. Cystic artery was likewise dissected out. The node of Calot was dropped down. The cystic artery was clipped twice proximally once distally and divided with saray. The remainder the attachments back to the liver bed were dissected giving us our critical view of safety which is the cystic duct going into the common bile duct. The cystic duct was clipped twice proximally once distally and divided with saray. The gallbladder was completely dissected off the liver bed and placed in an Endo Catch bag. The gallbladder was removed via the 11 mm port site and sent to pathology as specimen. Diagnostic laparoscopy showed no issues. There was no bleeding from the liver bed. The right upper quadrant was irrigated to a clear effluent with saline. Fascia of the 11 mm port site was closed with Vicryl suture under direct visualization with a laparoscopic suture passer. Gas was desufflated from the abdomen and the ports were removed. Skin was closed with 4 Monocryl and glue was applied. I was present for the entirety of the case. All counts were correct x 2. There were no complications. [facility] 2025-02-06 09:05:00 Date: 02/06/2025 Diagnosis: Pre-op Diagnosis * Abdominal pain, unspecified abdominal location [R10.9] * Calculus of gallbladder without cholecystitis without obstruction [K80.20] Post-op Diagnosis * Abdominal pain, unspecified abdominal location [R10.9] * Calculus of gallbladder without cholecystitis without obstruction [K80.20] Procedures: LAPAROSCOPIC CHOLECYSTECTOMY Surgeons: * Denis Briggs - Primary Bus And Sys Integration Senior Manager: * No surgical staff found * Anesthesia: General Estimated Blood Loss: 10 mL Drains: * None in log * Urine Output: Minimal Wound Closure Type: Primary Closure (any portion of the skin closed or approximated) Wound Class: Clean Contaminated Infection Present at the time of surgery? No Case Status: Urgent: required during same hospitalization to minimize chance of deterioration Anticipating return to OR: Anticipated Return to OR: No Is this patient on therapeutic antibiotics? Patient on theraputic antibiotics?: No Document Complications/Transfusions/Implants? None Specimens ID Source Type Tests Collected By Collected At Frozen? Priority Lab ID 1 Gallbladder Tissue TISSUE EXAM Denis Briggs MD 02/06/25 1007 Routine Description: GALL BLADDER IN 10% FORMALIN TO PATHOLOGY. Procedure for cancer: Procedure for Cancer?: No Dictation number: N/A Findings: Enlarged liver, critical view obtained Disposition: PACU Condition: stable [facility] 2025-02-04 11:02:52 Date: * No surgery found * EGD: Esophagitis Plan PPI Zofran Reglan MRCP to rule out choledocholithiasis HIDA scan if symptoms continue [facility] Notes Date/Time Note Provider Source Referral ID Status Reason Start Date Expiration Date V isits Requested Visits Authorized [id number] Pending Review 02/19/2025 02/14/2026 1 1 * Imaging (Routine) - Pending Review Specialty Diagnoses / Procedures Referred By [facility] Referred To Contact Radiology Diagnoses Nausea and vomiting, unspecified vomiting type Procedures [place] es[place] [address] [address] Phone: tel: fax: Referral ID Status Reason Start Date Expiration Date Visits Requested Visits Authorized [id number] Pending Review Perform Procedure 02/19/2025 02/14/2026 1 1 [id number]:25:57* * Consultation (Routine) - Closed Specialty Diagnoses / Procedures [facility] Referred To Contact Family Medicine Diagnoses Generalized abdominal [place] [address] [address] Phone: tel: fax: Referral ID Status Reason Start Date Expiration Date V isits Requested Visits Authorized [id number] Closed Specialty Services Required 12/10/2024 12/05/2025 1 1 [id number] 21:25:57* Ayla Prasad MD - 02/19/2025 1:30 PM CDT Subjective Patient ID: Pedro Feldman is a 59 y.o. male who presents for Vomiting (Patient came in due to a lot of vomiting and burping.). The patient is a male, accompanied by a family member who is providing history on his behalf, presenting for evaluation of persistent emesis and dysphagia following a cholecystectomy two weeks ago. Post-Cholecystectomy Emesis and Dysphagia: - Underwent laparoscopic cholecystectomy on 02/06 at the [facility]. - Persistent emesis since surgery, occurring every 2-3 hours, particularly after meals. - Describes a sensation of food being "stuck" in the throat, leading to choking and dyspnea. - Emesis provides temporary relief. - Taking pantoprazole BID with no improvement. - Recent imaging studies, including CT scans and ultrasound, reportedly normal. - Denies diarrhea or constipation. - History of a ruptured colon in 1990, followed by hernia development. Review of Systems All other systems reviewed and are negative. See HPI Objective Visit Vitals BP 121/75 (BP Location: Right arm, Patient Position: Sitting, BP Cuff Size: Adult) Pulse 71 Temp 36.9 ?C (98.4 ?F) (Temporal) Resp 18 Ht 1.575 m (5' 2") Wt 78 kg (172 lb) SpO2 98% BMI 31.46 kg/m? Smoking Status Never BSA 1.85 m? Patient Reported Vitals: There were no vitals filed for this visit. Physical Exam: Vitals and nursing note reviewed. Constitutional: Appearance: Normal appearance. HENT: Head: Normocephalic and atraumatic. Nose: Nose normal. No congestion or rhinorrhea. Mouth/Throat: Mouth: Mucous membranes are moist. Pharynx: No oropharyngeal exudate or posterior oropharyngeal erythema. Eyes: Extraocular Movements: Extraocular movements intact. Conjunctiva/sclera: Conjunctivae normal. Pupils: Pupils are equal, round, and reactive to light. Cardiovascular: Rate and Rhythm: Normal rate and regular rhythm. Pulses: Normal pulses. Heart sounds: Normal heart sounds. Pulmonary: Effort: Pulmonary effort is normal. Breath sounds: Normal breath sounds. Abdominal: General: Bowel sounds are normal. There is no distension. Palpations: Abdomen is soft. Tenderness: There is no abdominal tenderness. There is no guarding. Musculoskeletal: General: Normal range of motion. Cervical back: Normal range of motion. Right lower leg: No edema. Left lower leg: No edema. Skin: General: Skin is warm and dry. Neurological: General: No focal deficit present. Mental Status: He is alert and oriented to person, place, and time. Cranial Nerves: No cranial nerve deficit. Sensory: No sensory deficit. Motor: No weakness. Deep Tendon Reflexes: Reflexes normal. Psychiatric: Mood and Affect: Mood normal. Behavior: Behavior normal. Thought Content: Thought content normal. Judgment: Judgment normal. Assessment & Plan Nausea and vomiting, unspecified vomiting type PATIENT KEPT ON GOING TO THE RESTROOM TO CLEAR HIS THROAT AND THROUGH OUT HIS INTERVIEW HE KEPT ON BURPING Reviwed all hospital records Advised to return to ER and for hospital admission although diagnostic tests were ordered but time is the issue for approval through insurance Orders: FL esophagus barium swallow; Future CT abdomen pelvis wo IV contrast; Future Comprehensive Metabolic Panel; Future Complete Blood Count w/Diff and Platelet; Future Amylase Level; Future Lipase Level; Future Calculus of gallbladder without cholecystitis without obstruction S/p surgery Orders: CT abdomen pelvis wo IV contrast; Future Comprehensive Metabolic Panel; Future Complete Blood Count w/Diff and Platelet; Future Amylase Level; Future Lipase Level; Future Choking sensation Ordered CT to follow Administered promethazine 25 mg IM x 1 with no adverse reaction afterwards patient left the office in stable condition Orders: CT abdomen pelvis wo IV contrast; Future Comprehensive Metabolic Panel; Future Complete Blood Count w/Diff and Platelet; Future Amylase Level; Future Lipase Level; Future Prediabetes discussed meds use , side effects options and t/m plan of care in detail with the patient. patient verbalizes understanding. Orders: CT abdomen pelvis wo IV contrast; Future Comprehensive Metabolic Panel; Future Complete Blood Count w/Diff and Platelet; Future Amylase Level; Future Lipase Level; Future Other orders Ambulatory referral to Family Practice promethazine (Phenergan) 12.5 MG tablet; Take 1 tablet by mouth every 8 hours if needed for nausea or vomiting for up to 7 days. promethazine (Phenergan) 25 MG suppository; Insert 1 suppository into the rectum 3 times a day as needed for nausea or vomiting for up to 7 days. ondansetron (Zofran) 4 MG tablet; Take 1 tablet by mouth every 8 hours if needed for nausea or vomiting for up to 7 days. # Vomiting (R11.10) # Dysphagia (R13.10) # Gastro-esophageal reflux disease without esophagitis (K21.9) - Persistent vomiting and dysphagia since cholecystectomy on 02/06; possible post-surgical complication or obstruction. - Order abdominal CT scan to rule out obstruction. - Prescribe antiemetic for symptomatic relief. - Advised patient to follow up with Dr. Greene (Gastroenterology) for further evaluation; may require endoscopic assessment. - Order blood work. # History of cholecystectomy (Z90.49) [facility]25:57Scheduled Orders Health Maintenance Due Date Last Done Comments CT Colonography 1964 Colonoscopy 1964 Colorectal Cancer Screening 1964 FIT-DNA 1964 FIT 1964 FOBT 1964 Sigmoidoscopy 1964 Annual Physical 07/23/1967 Diabetes: Foot Exam 1974 Diabetes: Retinopathy Screening 1974 DTaP/Tdap/Td Vaccines (1 - Tdap) 07/23/1983 Diabetes: Urine Protein Screening 07/23/1983 Pneumococcal Vaccine: 50+ Years (1 of 1 - PCV) 2014 Hepatitis B Vaccines (2 of 3 - Hep B Twinrix 3-dose series) 09/29/2023 09/01/2023 Diabetes: Hemoglobin A1C 06/12/2025 025, 12/09/2024 Lipid Panel 12/09/2025 12/09/2024 Respiratory Syncytial Virus (RSV) Adult Series (1 - 1-dose 75+ series) 07/23/2039 Zoster Vaccines Completed 01/02/2023, 06/12/2022 Hepatitis A Vaccines Aged Out 09/01/2023 No long er eligible based on patient's age to complete this topic Influenza Vaccine Completed 12/22/2024, 07/09/2019 HIB Vaccines Aged Out No longer eligi ble based on patient's age to complete this topic HPV Vaccines Aged Out No longer eligi ble based on patient's age to complete this topic IPV Vaccines Aged Out No longer eligi ble based on patient's age to complete this topic Meningococcal Vaccine Aged Out No link tamar eligible based on patient's age to complete this topic Pneumococcal Vaccine: Pediatrics (0 to 5 Years) and At-Risk Patients (6 to 64 Years) Aged Out No longer eligible b ased on patient's age to complete this topic Rotavirus Vaccines Aged Out No longer eligible based on patient's age to complete this topic [place] [id number] 21:25:57 [facility]32[facility] 21:25:57 Diagnosis Nausea and vomiting, unspeci fied vomiting type - Primary Calculus of gallbladder with out cholecystitis without obstruction Choking sensation Other symptoms involving head and neck Prediabetes Other abnormal glucose [id number] 21:25:57 [place] [id number] 18:33:42 Patient Care Team <thead> Team Status: Active Member Role Status Dates LISA DANIEL MD primary care physician Active LISA DANIEL MD Attending Provider Active ROCIO CHONG MD Emergency Provider Active ANGELIKA FELDMAN Next of Kin Active ANGELIKA FELDMAN Emergency Contact Active [facility]2025-09-19 18:33:[address] [facility]2025-09-19 18:33:42 [facility]RENT [facility] Future Tests Future scheduled test information is unavailable Pending Tests Pending diagnostic test information is unavailable Future Visits Future appointment information is unavailable Referrals to Other Providers <thead> Reason for Referral Referral Start Date Provider Provider Contact Information Provider Address LISA DANIEL MD Work Phone: [facility] [address] [address] LISA DANIEL MD Work Phone: [facility] [address] [address] Future Procedures Future procedure information is unavailable Future Medications Future medication information is unavailable Patient Instructions <tbody> Cholelithiasis, [id number] Diverticulosis [place] Diet Hiccups [facility]2025-09-17 13:54:46* * Auth/Cert (Routine) Specialty Diagnoses / Procedures Referred By Contac t Referred To Contact Diagnoses Choking sensation Esophagitis JASPREET (acute kidney injury) (HCC) Intractable nausea and vomiting Abdominal pain, unspecified abdominal location Nausea and vomiting, unspecified vomiting type Procedures [facility] IP/OBS CARE SAME DATE MOD [place] [address] [place] [address] [place] [address] Phone: tel: fax: [facility] (Clinical Observation) [address] [place] [address] Phone: tel: fax: Referral ID Status Reason Start Date Expiration Date Visits Re quested Visits Authorized [id number] 1 1 [facility]ov[facility]3197-62-06 13:54:46* AUDIT-C Score Answer Date of Assessment Author 0 02/03/2025 7:49 PM CDT Ceferino Griffin RN * * Calculated C-SSRS Risk Score (Lifetime/Recent) Answer Date of Assessment Author No Risk Indicated 02/03/2025 11:02 AM CDT Altagracia Goldsmith RN * [place] Suicide Severity Rating Scale (Screener/Recent Self-Report) Question Answer Date of Assessment Author 1. Wish to be (Past 1 Month) No 025 11:02 AM WILMAT Altagracia Goldsmith RN 2. Non-Specific Active Suici swetha Thoughts (Past 1 Month) No 02/03/2025 11:02 AM CDT Altagracia Goldsmith RN 6. Suicidal Behavior (Lifetime) No 11:02 AM CDT Altagracia Goldsmith RN [id number] 13:54:46* Morro Robledo MD - 02/07/2025 12:08 PM CDT Status post cholecystectomy. Denies any nausea vomiting. Having some mild discomfort at the incision sites, overall feels much better. Wishes to advance his diet. Objective Physical Exam: Visit Vitals BP 125/66 Pulse 64 Temp 36.9 ?C (98.4 ?F) Resp 18 Body mass index is 31.57 kg/m?. Vitals and nursing note reviewed. Constitutional: In NAD, normal appearance. Not ill-appearing or toxic-appearing. Head: Atraumatic. Eyes: PERRL ENT: Clear Pulmonary: CTAB, No respiratory distress. No stridor. CV: RRR, s1s2 Abdominal: Soft nontender nondistended Neurological: No focal deficits Extremities: No c/c/e Psychiatric: Mood and Affect: Normal Derm: No ulcers or rash Lymphatics: No LAD noted. Labs: Results from last 7 days Lab Units 02/07/25 0253 02/06/25 0348 02/05/25 0341 WBC 10*3/uL 13.11* 8.00 9.62 HEMOGLOBIN g/dL 11.8* 11.4* 12.3* HEMATOCRIT % 34.3* 33.7* 35.9* PLATELETS 10*3/uL 262 246 273 Results from last 7 days Lab Units 02/07/25 0253 02/06/25 0348 02/05/25 0341 02/04/25 0351 02/03/25 1050 SODIUM mEq/L 139 139 141 < > 133* POTASSIUM mEq/L 4.0 3.7 3.8 < > 2.9* CHLORIDE mEq/L 110* 107 106 < > 93* CO2 mEq/L 19.0* 24.2 25.8 < > 26.1 BUN mg/dL <7* <7* <7* < > 22 CREATININE mg/dL 0.72 0.63* 0.68* < > 2.14* CALCIUM mg/dL 8.8 8.1* 8.1* < > 10.3 PROTEIN TOTAL g/dL 6.5 6.1 6.3 < > 9.7* BILIRUBIN TOTAL mg/dL 0.75 0.83 1.23* < > 1.41* ALK PHOS U/L 74 70 75 < > 116 ALT U/L 29 19 21 < > 28 AST U/L 41* 24 30 < > 36 GLUCOSE mg/dL 111* 97 99 < > 150* LIPASE U/L -- -- -- -- 49 INR -- -- -- -- 1.02 < > = values in this interval not displayed. Diagnostic Imaging: PR hepatobiliary w pharma intervention (HIDA WITH EF) Narrative: EXAM: PR HEPATOBILIARY WITH PHARM DATE: 02/05/2025 3:54 PM CDT. INDICATION: Abdominal pain. COMPARISON: Abdomen MR 02/04/2025, CT abdomen pelvis and gallbladder ultrasound 02/03/2025. TECHNIQUE: Following the intravenous administration of 6 millicuries technetium-99m Choletec, dynamic images of the abdomen were obtained in the anterior projection for 60 minutes. Next, after the IV administration of CCK, dynamic images were obtained of the abdomen for an additional 30 minutes. A region of interest was drawn around the gallbladder and ejection fraction was calculated. Cholecystokinin: 1.5 mcg IV. FINDINGS: * There is normal extraction of radiotracer by the hepatic parenchyma with normal clearance. * The intrahepatic biliary duct, common bile duct, gallbladder and small bowel are all visible within the first 60 minutes. * Gallbladder ejection fraction is abnormal at 30 minutes, measuring 11% (normal is greater than 35%). Impression: 1. No scintigraphic evidence for acute cholecystitis. 2. An abnormal gallbladder ejection fraction is suggestive of biliary dyskinesia. Electronically signed by: Kristian Moss MD 02/05/2025 04:18 PM CDT Inpatient Medications: acetaminophen, 650 mg, Intravenous, Once enoxaparin, 40 mg, Subcutaneous, q24h EFRAÍN escitalopram, 10 mg, Oral, Daily metoclopramide, 10 mg, Intravenous, TID AC metoclopramide, 10 mg, Intravenous, TID AC ondansetron, 8 mg, Intravenous, TID AC pantoprazole, 40 mg, Intravenous, q12h EFRAÍN sodium chloride, 10 mL, Intravenous, q12h Assessment & PlanIntractable nausea and vomiting Cholelithiasis JASPREET (acute kidney injury) (HCC) Dehydration History of esophagitis Serum total bilirubin elevated Abdominal pain Nausea and vomiting, unspecified vomiting type Nausea, vomiting, abdominal pain, abnormal imaging, cholelithiasis, abnormal liver function test Plan:Regular diet ordered Pain control as needed Repeat LFTs in 2 weeks Follow up path results * Cate Fitzgerald MD - 02/07/2025 9:49 AM CDT [facility] Query Clarification Progress Note As related to the inpatient hospital stay starting on 02/05/2025, 11:53 AM. I have reviewed the patient’s medical record and the following accurately represents the patient’s current condition. PROVIDER RESPONSE TEXT: Other Diagnosis: Acute renal failure on chronic kidney disease Query Created By : Kar Hernadez, 02/06/2025, 12:57 PM * Cate Fitzgerald MD - 02/06/2025 4:00 PM CDT Subjective Patient was seen and evaluated this afternoon. Status post laparoscopic cholecystectomy. Currently pain controlled Objective Last Recorded Vitals Blood pressure 141/66, pulse 92, temperature 37.4 ?C (99.3 ?F), resp. rate 18, height 1.549 m (5' 1"), weight 75.8 kg (167 lb 1.7 oz), SpO2 96%. Physical Exam:General: No acute distress. Alert and oriented to time place and person. HEENT: Normocephalic atraumatic. Extraocular movements are intact. Noninjected scleral conjunctiva. Trachea midline. Neck: Supple RESPIRATORY: Lungs clear to auscultation bilaterally. No rhonchi, no rales, no wheezes. No use of accessory muscles. No stridor CARDIOVASCULAR: S1, S2. No murmurs no gallops no rubs. Peripheral pulses present GASTROINTESTINAL: Abdomen soft tender, nondistended. Normoactive bowel sounds. NEURO: No focal deficits no sensory deficits noted grossly. EXTREMETIES: No deformity. No cyanosis no clubbing no edema. PSCYH: Appropriate affect and mood. SKIN: No rashes no lesions noted. acetaminophen, 650 mg, Intravenous, Once[START ON 02/07/2025] enoxaparin, 40 mg, Subcutaneous, q24h EFRAÍN escitalopram, 10 mg, Oral, Daily metoclopramide, 10 mg, Intravenous, TID AC metoclopramide, 10 mg, Intravenous, TID AC ondansetron, 8 mg, Intravenous, TID AC pantoprazole, 40 mg, Intravenous, q12h EFRAÍN sodium chloride, 10 mL, Intravenous, q12h Relevant ResultsLab Results Component Value Date WBC 8.00 02/06/2025 Hgb 11.4 (L) 02/06/2025 Hct 33.7 (L) 02/06/2025 Plt Count 246 02/06/2025 Lab ResultsComponent Value Date Sodium Lvl 139 02/06/2025 Potassium Lvl 3.7 02/06/2025 Chloride Lvl 107 02/06/2025 CO2 Lvl 24.2 02/06/2025 BUN <7 (L) 02/06/2025 Creatinine Lvl 0.63 (L) 02/06/2025 Glucose Lvl 97 02/06/2025 Lab ResultsComponent Value Date Calcium Lvl 8.1 (L) 02/06/2025 Magnesium 2.34 02/04/2025 Phosphorus Lvl 1.9 (L) 02/04/2025 Lab ResultsComponent Value Date AST 24 02/06/2025 ALT 19 02/06/2025 Alkaline Phosphatase 70 02/06/2025 No results found for: "PTT", "PT", "INR" No results found for: "COLORU", "CLARITYU", "SPECGRAV", "PHUR", "PROTUR", "GLUCOSEU", "KETONESU", "NITRITEU", "LEUKOCYTESUR", "BILIRUBINUR", "UROBILINOGEN" No results found for: "CK", "TROPONINT", "TROPONINI", "BNP" No components found for: "HGBA1C;2" No components found for: "TSH;2" Imaging:Reviewed Assessment & PlanIntractable nausea and vomiting scheduled Reglan before meals, scheduled zofran GI following-had EGD (02/04) which showed esophagitis - MRCP Negative for choledocholithiasis General Surgery on board Status post laparoscopic cholecystectomy JASPREET (acute kidney injury) (HCC) Dehydration Likely secondary to dehydration - improved with IV fluids - will start clear liquid diet And advance as tolerated History of esophagitis PPI Cholelithiasis Serum total bilirubin elevated Ultrasound still so cholelithiasis - MRCP negative for choledocholithiasis Abdominal pain Improving Current Diet: Return to previous dietAdult Diet Regular VTE Prophylaxisenoxaparin (Lovenox) syringe 40 mg [[id number]] Dispositionhome Reason for continued hospitalization: Patient status post laparoscopic cholecystectomy. Start clear diet and advance as tolerated. Once able to tolerate diet patient can be discharged home with outpatient follow-up with general surgery This note was dictated with the use of [employer] speech recognition software. Please use best judgement when interpreting and excuse any executive receptionist errors. * Morro Robledo MD - 02/06/2025 3:45 PM CDT Status post cholecystectomy. Denies any nausea vomiting. Having some mild discomfort at the incision sites, overall feels much better. Objective Physical Exam: Visit Vitals BP 129/65 Pulse 81 Temp 36.9 ?C (98.4 ?F) Resp 17 Body mass index is 31.57 kg/m?. Vitals and nursing note reviewed. Constitutional: In NAD, normal appearance. Not ill-appearing or toxic-appearing. Head: Atraumatic. Eyes: PERRL ENT: Clear Pulmonary: CTAB, No respiratory distress. No stridor. CV: RRR, s1s2 Abdominal: Soft nontender nondistended Neurological: No focal deficits Extremities: No c/c/e Psychiatric: Mood and Affect: Normal Derm: No ulcers or rash Lymphatics: No LAD noted. Labs: Results from last 7 days Lab Units 02/06/2534702/05/2534002/04/25 035 WBC 10*3/uL 8.00 9.62 7.87 HEMOGLOBIN g/dL 11.4* 12.3* 13.2 HEMATOCRIT % 33.7* 35.9* 38.9 PLATELETS 10*3/uL 246 273 347 Results from last 7 days Lab Units 02/06/25 03402/05/25 03402/04/25 0351 02/03/25 1050 SODIUM mEq/L 139 141 138 133* POTASSIUM mEq/L 3.7 3.8 3.2* 2.9* CHLORIDE mEq/L 107 106 101 93* CO2 mEq/L 24.2 25.8 27.1 26.1 BUN mg/dL <7* <7* 13 22 CREATININE mg/dL 0.63* 0.68* 0.92 2.14* CALCIUM mg/dL 8.1* 8.1* 8.5 10.3 PROTEIN TOTAL g/dL 6.1 6.3 7.0 9.7* BILIRUBIN TOTAL mg/dL 0.83 1.23* 2.00* 1.41* ALK PHOS U/L 70 75 85 116 ALT U/L 19 21 22 28 AST U/L 24 30 33 36 GLUCOSE mg/dL 97 99 100* 150* LIPASE U/L -- -- -- 49 INR -- -- -- 1.02 Diagnostic Imaging: NM hepatobiliary w pharma intervention (HIDA WITH EF) Narrative: EXAM: NM HEPATOBILIARY WITH PHARM DATE: 02/05/2025 3:54 PM CDT. INDICATION: Abdominal pain. COMPARISON: Abdomen MR 02/04/2025, CT abdomen pelvis and gallbladder ultrasound 02/03/2025. TECHNIQUE: Following the intravenous administration of 6 millicuries technetium-99m Choletec, dynamic images of the abdomen were obtained in the anterior projection for 60 minutes. Next, after the IV administration of CCK, dynamic images were obtained of the abdomen for an additional 30 minutes. A region of interest was drawn around the gallbladder and ejection fraction was calculated. Cholecystokinin: 1.5 mcg IV. FINDINGS: * There is normal extraction of radiotracer by the hepatic parenchyma with normal clearance. * The intrahepatic biliary duct, common bile duct, gallbladder and small bowel are all visible within the first 60 minutes. * Gallbladder ejection fraction is abnormal at 30 minutes, measuring 11% (normal is greater than 35%). Impression: 1. No scintigraphic evidence for acute cholecystitis. 2. An abnormal gallbladder ejection fraction is suggestive of biliary dyskinesia. Electronically signed by: Kristian Moss MD 02/05/2025 04:18 PM CDT Inpatient Medications: acetaminophen, 650 mg, Intravenous, Once [START ON 02/07/2025] enoxaparin, 40 mg, Subcutaneous, q24h EFRAÍN escitalopram, 10 mg, Oral, Daily metoclopramide, 10 mg, Intravenous, TID AC metoclopramide, 10 mg, Intravenous, TID AC ondansetron, 8 mg, Intravenous, TID AC pantoprazole, 40 mg, Intravenous, q12h EFRAÍN sodium chloride, 10 mL, Intravenous, q12h Assessment & PlanIntractable nausea and vomiting Cholelithiasis JASPREET (acute kidney injury) (HCC) Dehydration History of esophagitis Serum total bilirubin elevated Abdominal pain Nausea and vomiting, unspecified vomiting type Nausea, vomiting, abdominal pain, abnormal imaging, cholelithiasis, abnormal liver function test Plan:Continue Zofran Continue reglan Diet as tolerated Pain control as needed Follow up path results * Denis Briggs MD - 02/06/2025 8:54 AM CDT General Surgery Progress Note Date: 02/06/25 Interval History: Patient without acute changes overnight. Continues to complain of intermittent upper abdominal discomfort. Physical Exam: Temp: 98.6 Pulse: 58 BP: 143/73 General: A & O * 3 HEENT: NC/AT Resp: Respirations nonlabored CV: Regular rate Abdomen: Soft / ND / mild RUQ TTP Skin: No cellulitis or rashes Psych: Normal affect Neuro: cranial nerves intact Labs: WBC: 8.0 H.4 Bili: 0.83 Assessment: 59-year-old male presents with recurrent nausea and emesis and abdominal discomfort. HIDA scan shows depressed ejection fracture consistent with biliary dyskinesia. Plan: Patient clinically stable. He has persistent symptoms. We have discussed the risk of laparoscopic cholecystectomy to include pain, bleeding, infection, hernia, need for prolonged enterolysis, bowel injury, ductal injury, retained stone, need for postoperative ERCP. Secondary to his chronic and worsening symptoms he has voiced understanding and opted to proceed with laparoscopic cholecystectomy. * Cherie Perla, - 02/05/2025 3:52 PM CDT Subjective Patient states that he is feeling better today. He is able to tolerate clears last night. ROS: 14 point review of systems reviewed and pertinent positives and negatives listed above Objective Last Recorded Vitals Blood pressure 128/76, pulse 55, temperature 36.7 ?C (98 ?F), resp. rate 16, height 1.549 m (5' 1"), weight 75.8 kg (167 lb 1.7 oz), SpO2 98%. Physical Exam: Gen: appears to be in no distress HEENT: normocephalic and atraumatic; sclerae anicteric; moist mucous membranes; hearing grossly intact; oropharynx clear; neck supple, EOMI Pulm: breathing comfortably; lung [place] clear to auscultation bilaterally CVS: regular rate and rhythm; normal s1 and s2 heart sounds Abd: bowel sounds present, nontender to palpation Ext: warm; no edema Neuro: no focal deficits Psych: normal affect Relevant Results Pertinent Labs : Lab Results Component Value Date WBC 9.62 02/05/2025 Hgb 12.3 (L) 02/05/2025 Hct 35.9 (L) 02/05/2025 Plt Count 273 02/05/2025 Lab Results Component Value Date Sodium Lvl 141 02/05/2025 Potassium Lvl 3.8 02/05/2025 Chloride Lvl 106 02/05/2025 CO2 Lvl 25.8 02/05/2025 BUN <7 (L) 02/05/2025 Creatinine Lvl 0.68 (L) 02/05/2025 Glucose Lvl 99 02/05/2025 Lab Results Component Value Date Calcium Lvl 8.1 (L) 02/05/2025 Magnesium 2.34 02/04/2025 Phosphorus Lvl 1.9 (L) 02/04/2025 Lab Results Component Value Date AST 30 02/05/2025 ALT 21 02/05/2025 Alkaline Phosphatase 75 02/05/2025 Lab Results Component Value Date PTT 26.4 02/03/2025 Prothrombin Time (PT) 13.6 02/03/2025 INR 1.02 02/03/2025 Lab Results Component Value Date UA Color Ayla (A) 02/03/2025 UA Spec Grav 1.027 02/03/2025 UA pH 5.0 02/03/2025 UA Protein 100 (A) 02/03/2025 UA Glucose Negative 02/03/2025 UA Ketones Negative 02/03/2025 UA Nitrite Negative 02/03/2025 UA Leuk Esterase Negative 02/03/2025 UA Bilirubin Negative 02/03/2025 UA Urobilinogen 2.0 (A) 02/03/2025 No results found for: "CK", "TROPONINT", "TROPONINI", "BNP" No components found for: "HGBA1C;2" No components found for: "TSH;2" Medications: Scheduled Meds: acetaminophen, 650 mg, Intravenous, Once enoxaparin, 40 mg, Subcutaneous, q24h EFRAÍN escitalopram, 10 mg, Oral, Daily metoclopramide, 10 mg, Intravenous, TID AC metoclopramide, 10 mg, Intravenous, TID AC ondansetron, 8 mg, Intravenous, TID AC pantoprazole, 40 mg, Intravenous, q12h EFRAÍN Continuous Infusions: sodium chloride, 100 mL/hr, Last Rate: 100 mL/hr (02/05/25 1308) PRN Meds: PRN medications: acetaminophen, hydrALAZINE, ondansetron, traMADol Assessment & PlanIntractable nausea and vomiting scheduled Reglan before meals, scheduled zofran GI following-had EGD (02/04) which showed esophagitis - MRCP showed gallstones, gallbladder thickening - general surgery consulted, Dr. Briggs. Plan for HIDA scan today. JASPREET (acute kidney injury) (HCC) Dehydration Likely secondary to dehydration - improved with IV fluids - will start clear liquid diet History of esophagitis PPI Cholelithiasis Serum total bilirubin elevated Ultrasound still so cholelithiasis - MRCP negative for choledocholithiasis Current Diet: NPO Diet VTE Prophylaxisenoxaparin (Lovenox) syringe 40 mg [[id number]] DispositionPatient admitted for intractable nausea and vomiting. Patient has gallstones with distended gallbladder. Plan for HIDA scan today. * Morro Robledo MD - 02/05/2025 11:00 AM CDT He was able to tolerate a diet. HIDA scan ordered for this morning. Evaluated by surgery. MRI negative for choledocholithiasis. Objective Physical Exam: Visit Vitals BP 107/60 Pulse 61 Temp 36.7 ?C (98.1 ?F) Resp 16 Body mass index is 31.57 kg/m?. Vitals and nursing note reviewed. Constitutional: In NAD, normal appearance. Not ill-appearing or toxic-appearing. Head: Atraumatic. Eyes: PERRL ENT: Clear Pulmonary: CTAB, No respiratory distress. No stridor. CV: RRR, s1s2 Abdominal: Soft nontender nondistended Neurological: No focal deficits Extremities: No c/c/e Psychiatric: Mood and Affect: Normal Derm: No ulcers or rash Lymphatics: No LAD noted. Labs: Results from last 7 days Lab Units 02/05/25 0341 02/04/25 0351 02/03/25 1050 WBC 10*3/uL 9.62 7.87 14.69* HEMOGLOBIN g/dL 12.3* 13.2 16.4 HEMATOCRIT % 35.9* 38.9 47.0 PLATELETS 10*3/uL 273 347 502* Results from last 7 days Lab Units 02/05/25 0341 02/04/25 0351 02/03/25 1050 SODIUM mEq/L 141 138 133* POTASSIUM mEq/L 3.8 3.2* 2.9* CHLORIDE mEq/L 106 101 93* CO2 mEq/L 25.8 27.1 26.1 BUN mg/dL <7* 13 22 CREATININE mg/dL 0.68* 0.92 2.14* CALCIUM mg/dL 8.1* 8.5 10.3 PROTEIN TOTAL g/dL 6.3 7.0 9.7* BILIRUBIN TOTAL mg/dL 1.23* 2.00* 1.41* ALK PHOS U/L 75 85 116 ALT U/L 21 22 28 AST U/L 30 33 36 GLUCOSE mg/dL 99 100* 150* LIPASE U/L -- -- 49 INR -- -- 1.02 Diagnostic Imaging: MRI abdomen wo contrast Narrative: Exam: MRI of the abdomen without contrast (MRCP) Reason for Exam: Concern for choledocho. Right upper quadrant pain. Comparison Exam: US Gallbladder, CT Abdomen Pelvis 02/03/2025 and 12/08/2024. Technique: Multiplanar and multisequence imaging was performed of the abdomen. T1 and T2-weighted images were acquired without injection of intravenous contrast. Discussion: Liver/Gallbladder/Biliary tree: Gallbladder is slightly distended. Multiple small gallstones. No biliary duct dilation. No evidence seen for choledocholithiasis within the common bile duct nor external compression on the common bile duct. Pancreas: Unremarkable. Spleen: Unremarkable. Adrenals: Unremarkable. Kidneys/Ureters: Unremarkable. Gastrointestinal tract: Stomach is unremarkable. No dilated loops of bowel. Peritoneum/Mesentery/Retroperitoneum: No ascites appreciated Lymph nodes: Unremarkable. Vasculature: No abdominal aortic aneurysm. Bones/Soft tissues: Unremarkable Impression: Impression: 1. Gallbladder is slightly distended. Multiple small gallstones. No biliary duct dilation. No evidence seen for choledocholithiasis within the common bile duct nor external compression on the common bile duct. Electronically signed by: Chepe Tse MD 02/04/2025 05:02 PM CDT RP EGD Table formatting from the original result was not included. Introduction: A 59 yrs male patient presents for an EGD. Indication: Abdominal pain, unspecified abdominal location Choking sensation Esophagitis Post-Procedure Diagnosis: None Pre-sedation assessment:A history and physical has been performed, and patient medication allergies have been reviewed. The patient's tolerance of previous anesthesia has been reviewed. The risks and benefits of the procedure and the sedation options and risks were discussed with the patient. All questions were answered and informed consent obtained. Consent:The benefits, risks (perforation, bleeding, infection, pancreatitis, adverse effects to the medicine, and the possibility of missing polyps, tumors, cancers, and other lesions), alternatives to the procedure were discussed and informed consent was obtained from the patient. MedicationsSee Anesthesia Record. Details of the ProcedureThe patient underwent monitored anesthesia care, which was administered by an anesthesia professional. The patient's ETCO2, heart rate, level of consciousness, oxygen saturation, respirations, blood pressure and ECG were monitored throughout the procedure. The scope was introduced through the mouth and advanced to the second part of the duodenum. Retroflexion was performed in the cardia. The patient experienced no blood loss. The procedure was not difficult. The patient tolerated the procedure well. There were no apparent adverse events. FindingsMild erythematous esophagitis in the GE junction; performed cold forceps biopsy. The stomach appeared normal. Performed random biopsy using biopsy forceps. Single small nodule was suggestive of pancreatic rest was visualized inthe antrum. The duodenum appeared normal. Performed random biopsy using biopsy forceps. ImpressionEsophagitis in the GE junction; performed cold forceps biopsy. The stomach appeared normal. Performed random biopsy. Single small nodule was suggestive of pancreatic rest was visualized in the antrum. The duodenum appeared normal. Performed random biopsy. SpecimensID Type Source Tests Collected by Time 1 : duodenum bx Tissue Duodenum TISSUE EXAM Morro Robledo MD 02/04/2025 1054 2 : antrum bx Tissue Gastric Antrum TISSUE EXAM Morro Robledo MD 02/04/2025 1054 3 : gastric body bx Tissue Gastric Body TISSUE EXAM Morro Robledo MD 02/04/2025 1055 4 : GE junction bx Tissue Gastroesophageal Junction TISSUE EXAM Morro Robledo MD 02/04/2025 1055 RecommendationFollow up with PCP Await pathology results EventsProcedure Events Event Event Time Procedure EventsEvent Event Time ENDO UPPER SCOPE IN TIME 02/04/2025 10:53 AM EGD procedure length: Last relevant procedure: Scope Used: [id number] Staff Role Madelyn Francisco MA Endo Microfilm Machine Operator Angelika Blandon, ARI Endo Nurse Morro Robledo MD Proceduralist Echo Goldberg MD Anesthesiologist ASA Score: 2 Mallampati Score: II Inpatient Medications: acetaminophen, 650 mg, Intravenous, Once enoxaparin, 40 mg, Subcutaneous, q24h EFRAÍN escitalopram, 10 mg, Oral, Daily metoclopramide, 10 mg, Intravenous, TID AC metoclopramide, 10 mg, Intravenous, TID AC ondansetron, 8 mg, Intravenous, TID AC pantoprazole, 40 mg, Intravenous, q12h EFRAÍN Assessment & PlanIntractable nausea and vomiting Cholelithiasis JASPREET (acute kidney injury) (HCC) Dehydration History of esophagitis Serum total bilirubin elevated Nausea, vomiting, abdominal pain, abnormal imaging, cholelithiasis, abnormal liver function test Plan:Continue Zofran Continue reglan MRCP negative for choledocho HIDA scan pending Follow up path results * Cherie Perla, - 02/04/2025 11:39 AM CDT Subjective Patient went for EGD and has esophagitis. He is feeling slightly better at this time. ROS: 14 point review of systems reviewed and pertinent positives and negatives listed above Objective Last Recorded Vitals Blood pressure 126/73, pulse 56, temperature 36.3 ?C (97.3 ?F), temperature source Temporal, resp. rate 13, height 1.549 m (5' 1"), weight 75.8 kg (167 lb 1.7 oz), SpO2 100%. Physical Exam: Gen: appears to be in no distress HEENT: normocephalic and atraumatic; sclerae anicteric; moist mucous membranes; hearing grossly intact; oropharynx clear; neck supple, EOMI Pulm: breathing comfortably; lung [place] clear to auscultation bilaterally CVS: regular rate and rhythm; normal s1 and s2 heart sounds Abd: bowel sounds present, nontender to palpation Ext: warm; no edema Neuro: no focal deficits Relevant Results Pertinent Labs : Lab Results Component Value Date WBC 7.87 02/04/2025 Hgb 13.2 02/04/2025 Hct 38.9 02/04/2025 Plt Count 347 02/04/2025 Lab Results Component Value Date Sodium Lvl 138 02/04/2025 Potassium Lvl 3.2 (L) 02/04/2025 Chloride Lvl 101 02/04/2025 CO2 Lvl 27.1 02/04/2025 BUN 13 02/04/2025 Creatinine Lvl 0.92 02/04/2025 Glucose Lvl 100 (H) 02/04/2025 Lab Results Component Value Date Calcium Lvl 8.5 02/04/2025 Magnesium 2.34 02/04/2025 Phosphorus Lvl 1.9 (L) 02/04/2025 Lab Results Component Value Date AST 33 02/04/2025 ALT 22 02/04/2025 Alkaline Phosphatase 85 02/04/2025 Lab Results Component Value Date PTT 26.4 02/03/2025 Prothrombin Time (PT) 13.6 02/03/2025 INR 1.02 02/03/2025 Lab Results Component Value Date UA Color Ayla (A) 02/03/2025 UA Spec Grav 1.027 02/03/2025 UA pH 5.0 02/03/2025 UA Protein 100 (A) 02/03/2025 UA Glucose Negative 02/03/2025 UA Ketones Negative 02/03/2025 UA Nitrite Negative 02/03/2025 UA Leuk Esterase Negative 02/03/2025 UA Bilirubin Negative 02/03/2025 UA Urobilinogen 2.0 (A) 02/03/2025 No results found for: "CK", "TROPONINT", "TROPONINI", "BNP" No components found for: "HGBA1C;2" No components found for: "TSH;2" Medications: Scheduled Meds: acetaminophen, 650 mg, Intravenous, Once enoxaparin, 40 mg, Subcutaneous, q24h EFRAÍN escitalopram, 10 mg, Oral, Daily metoclopramide, 10 mg, Intravenous, TID AC metoclopramide, 10 mg, Intravenous, TID AC ondansetron, 8 mg, Intravenous, TID AC pantoprazole, 40 mg, Intravenous, q12h [facility] Continuous Infusions: sodium chloride, 100 mL/hr, Last Rate: 100 mL/hr (02/04/25 1049) PRN Meds: PRN medications: acetaminophen, hydrALAZINE, ondansetron, traMADol Assessment & PlanIntractable nausea and vomiting scheduled Reglan before meals, scheduled zofran GI following-had EGD (02/04) which showed esophagitis - MRCP pending JASPREET (acute kidney injury) (HCC) Dehydration Likely secondary to dehydration - improved with IV fluids - will continue IV fluids until reliably able to take PO History of esophagitis PPI Cholelithiasis Serum total bilirubin elevated Ultrasound still so cholelithiasis - MRCP pending Current Diet: NPO Diet VTE Prophylaxisenoxaparin (Lovenox) syringe 40 mg [[id number]] DispositionPatient admitted for intractable nausea and vomiting. Patient had EGD today which showed esophagitis. He is still complaining of abdominal pain. [facility]CP pending [id number] 13:54:46Pending Results Scheduled Orders Name Type Priority Associated Diagnoses Orde r Schedule Tissue Examination Pathology and Cytology Timed Abdominal pain, unspecified abdominal location Calculus of gallbladder without cholecystitis without obstruction Release Upon Ordering for 1 Occurrences starting 02/06/2025, 1 completed Health Maintenance Due Date Last Done Comments CT Colonography 1964 Colonoscopy 1964 Colorectal Cancer Screening 1964 FIT-DNA 1964 FIT 1964 FOBT 1965 Sigmoidoscopy 1964 Annual Physical 07/23/1967 DTaP/Tdap/Td Vaccines (1 - Tdap) 07/23/1983 Pneumococcal Vaccine: 50+ Years (1 of 1 - PCV) 2014 Hepatitis B Vaccines (2 of 3 - Hep B Twinrix 3-dose series) 09/29/2023 09/01/2023 Lipid Panel 12/09/2029 12/09/2024 Respiratory Syncytial Virus (RSV) Adult Series (1 - 1-dose 75+ series) 07/23/2039 Zoster Vaccines Completed 01/02/2023, 06/12/2022 Hepatitis A Vaccines Aged Out 09/01/2023 No long er eligible based on patient's age to complete this topic Influenza Vaccine Completed 12/22/2024, 07/09/2019 HIB Vaccines Aged Out No longer eligi ble based on patient's age to complete this topic HPV Vaccines Aged Out No longer eligi ble based on patient's age to complete this topic IPV Vaccines Aged Out No longer eligi ble based on patient's age to complete this topic Meningococcal Vaccine Aged Out No link tamar eligible based on patient's age to complete this topic Pneumococcal Vaccine: Pediatrics (0 to 5 Years) and At-Risk Patients (6 to 64 Years) Aged Out No longer eligible b ased on patient's age to complete this topic Rotavirus Vaccines Aged Out No longer eligible based on patient's age to complete this topic [facility] [id number] 13:54:46 [facility] [id number] 13:54:46 Diagnosis Intractable nausea and vomit ing - Primary Abdominal pain, unspecified abdominal location Choking sensation Other symptoms involving head and neck Esophagitis Unspecified esophagitis Nausea and vomiting, unspeci fied vomiting type JASPREET (acute kidney injury) (H CC) Calculus of gallbladder with out cholecystitis without obstruction Calculus of gallbladder with acute cholecystitis without obstruction JASPREET (acute kidney injury) (H CC) Dehydration History of esophagitis Cholelithiasis Calculus of gallbladder without mention of cholecystitis or obstruction Serum total bilirubin elevated Disorders of bilirubin excretion Nausea and vomiting, unspeci fied vomiting type Abdominal pain Abdominal pain, unspecified site [facility] [id number] 13:54:46 [facility] [id number] 13:29:33 The patient is Moderately Stable - Low risk of patient condition declining or worsening The patient's goals for the shift include Feel better The clinical goals for the shift include Pain Management Problem: Gastrointestinal - Adult Goal: Minimal or absence of nausea and vomiting 02/07/2025 1329 by Brando Villar RN Outcome: Adequate for Discharge 02/07/2025 1308 by Brando Villar RN Outcome: Adequate for Discharge Goal: Maintains or returns to baseline bowel function 02/07/2025 1329 by Bradno Villar RN Outcome: Adequate for Discharge 02/07/2025 1308 by Brando Villar RN Outcome: Adequate for Discharge Goal: Maintains adequate nutritional intake 02/07/2025 1329 by Brando Villar RN Outcome: Adequate for Discharge 02/07/2025 1308 by Brando Villar RN Outcome: Adequate for Discharge Problem: Metabolic/Fluid and Electrolytes - Adult Goal: Electrolytes maintained within normal limits 02/07/2025 1329 by Brando Villar RN Outcome: Adequate for Discharge 02/07/2025 1308 by Brando Villar RN Outcome: Adequate for Discharge Goal: Hemodynamic stability and optimal renal function maintained 02/07/2025 1329 by Brando Villar RN Outcome: Adequate for Discharge 02/07/2025 1308 by Brando Villar RN Outcome: Adequate for Discharge Goal: Glucose maintained within prescribed range 02/07/2025 1329 by Brando Villar RN Outcome: Adequate for Discharge 02/07/2025 1308 by Brando Villar RN Outcome: Adequate for Discharge Problem: Pain - Adult Goal: Verbalizes/displays adequate comfort level or baseline comfort level 02/07/2025 1329 by Brando Villar RN Outcome: Adequate for Discharge 02/07/2025 1308 by Brando Villar RN Outcome: Adequate for Discharge Problem: Safety - Adult Goal: Free from fall injury 02/07/2025 1329 by Brando Villar RN Outcome: Adequate for Discharge 02/07/2025 1308 by Brando Villar RN Outcome: Adequate for Discharge Problem: Discharge Planning Goal: Discharge to home or other facility with appropriate resources 02/07/2025 1329 by Brando Villar RN Outcome: Adequate for Discharge 02/07/2025 1308 by Brando Villar RN Outcome: Adequate for Discharge Problem: Altered Nutrient Intake Goal: Nutrient intake appropriate for improving, restoring or maintaining nutritional needs Outcome: Adequate for Discharge Problem: Chronic Conditions and Co-morbidities Goal: Patient's chronic conditions and co-morbidity symptoms are monitored and maintained or improved 02/07/2025 1329 by Brando Villar RN Outcome: Adequate for Discharge 02/07/2025 1308 by Brando Villar RN Outcome: Adequate for Discharge Brando Galicia2025-09-17 13:08:17 The patient is Moderately Stable - Low risk of patient condition declining or worsening The patient's goals for the shift include Feel better The clinical goals for the shift include Pain Management Problem: Gastrointestinal - Adult Goal: Minimal or absence of nausea and vomiting Outcome: Adequate for Discharge Goal: Maintains or returns to baseline bowel function Outcome: Adequate for Discharge Goal: Maintains adequate nutritional intake Outcome: Adequate for Discharge Problem: Metabolic/Fluid and Electrolytes - Adult Goal: Electrolytes maintained within normal limits Outcome: Adequate for Discharge Goal: Hemodynamic stability and optimal renal function maintained Outcome: Adequate for Discharge Goal: Glucose maintained within prescribed range Outcome: Adequate for Discharge Problem: Pain - Adult Goal: Verbalizes/displays adequate comfort level or baseline comfort level Outcome: Adequate for Discharge Problem: Safety - Adult Goal: Free from fall injury Outcome: Adequate for Discharge Problem: Discharge Planning Goal: Discharge to home or other facility with appropriate resources Outcome: Adequate for Discharge Problem: Chronic Conditions and Co-morbidities Goal: Patient's chronic conditions and co-morbidity symptoms are monitored and maintained or improved Outcome: Adequate for Discharge T [facility] [id number] 01:12:44 The patient is Moderately Stable - Low risk of patient condition declining or worsening The patient's goals for the shift include pain management The clinical goals for the shift include advance diet, pass gas T [facility]2025-09-16 18:00:00 Problem: Gastrointestinal - Adult Goal: Minimal or absence of nausea and vomiting Outcome: Progressing Goal: Maintains or returns to baseline bowel function Outcome: Progressing Goal: Maintains adequate nutritional intake Outcome: Progressing Problem: Metabolic/Fluid and Electrolytes - Adult Goal: Electrolytes maintained within normal limits Outcome: Progressing Goal: Hemodynamic stability and optimal renal function maintained Outcome: Progressing Goal: Glucose maintained within prescribed range Outcome: Progressing Problem: Pain - Adult Goal: Verbalizes/displays adequate comfort level or baseline comfort level Outcome: Progressing Problem: Safety - Adult Goal: Free from fall injury Outcome: Progressing Problem: Discharge Planning Goal: Discharge to home or other facility with appropriate resources Outcome: Progressing Problem: Chronic Conditions and Co-morbidities Goal: Patient's chronic conditions and co-morbidity symptoms are monitored and maintained or improved Outcome: Progressing The patient is Moderately Stable - Low risk of patient condition declining or worsening The patient's goals for the shift include pain management The clinical goals for the shift include advance diet, pass gas [facility]2025-09-16 17:27:23 DC order was placed. Dr. Childs was notified that the patient only had clear liquids as per ARI Gifford. Per Dr. Childs, she will can sandy the DC, advance the diet, have the patient order his dinner and if he tolerates it, to let her know and she will place the DC order. Spoke with with the patient's and asked them to go ahead and order his dinner, and notified her regarding the DC plan. Dr. Childs also notified via secure chat to resend the patient's prescriptions to the [facility] on file due to the retail pharmacy being closed at the time of discharge. [facility]2025-09-16 17:22:32 Images from the original note were not included. [id number] Low-Fat Diet A low-fat diet can help you lose weight. It also can help lower cholesterol and prevent symptoms of gallbladder disease. In addition, choosing healthier unsaturated fats over less saturated healthy fats can help improve heart health. The average [place] diet contains up to 50% fat. This means that half of all calories come from fat (about 80 grams to 100 grams of fat per day). Choosing normal portions of foods from the list below can help lower your fat intake. Experts recommend that only 20% to 35% of your daily calories come from fat. The remaining 65% to 80% of calories will come from protein and carbohydrates. Breads OK: Whole-wheat or rye bread, marjorie or soda crackers, duy toast, plain rolls, whole-wheat bagels, Portuguese muffins. Don't have: Rolls and breads containing whole milk; waffles, pancakes, biscuits, cornbread; cheese crackers, other flavored crackers, pastries, doughnuts. Cereals OK: Oatmeal, whole-wheat, bran, multigrain, rice. Don't have: Granola or other cereals that have oil, coconut, or more than 2 grams of fat per serving. Cheese and eggs OK: Cheeses labeled low-fat; 3 whole eggs per week; egg whites and egg substitutes as desired. Don't have: All other cheeses. Desserts OK: Gelatin, slushy, kristal food cake, meringues, nonfat yogurt and pudding, sherbet made with nonfat milk. Don't have: Any other store-bought desserts, or desserts that have fat, whole milk, cream, chocolate, and coconut. Try to limit sweets and desserts. They may also contain high amounts of added sugars. Drinks OK: Nonfat milk, coffee, tea, water. Don't have : Whole and reduced-fat milk, evaporated and condensed milk, hot chocolate mixes, milkshakes, malts, eggnog. Fats OK: You may have up to 3 teaspoons of fat daily. This can be butter, margarine, mayonnaise, or healthy oils (canola or olive). Don't have: Cream, nondairy creams, cream cheese, gravies, and cream sauces. Fruits OK: Most fruits and fruit preparations made with no or low amounts of fat and added sugar. Don't have: Coconut, olives. Meats, poultry, fish OK: Limit meat to 6 ounces daily (broiled, roasted, baked, grilled, or boiled). Buy lean cuts and trim off the fat. Try beef, fish, navarro, pork, and canned fish packed in water; also, chicken and turkey with the skin removed. Don't have: Fried meats, fish, or poultry; fried eggs, and fish canned in oils; fatty meats, such as thao, sausage, corned beef, hot dogs, and lunch meats; meats with gravies and sauces. Potatoes, beans, pasta OK: Dried beans, split peas, lentils, potatoes, rice, pasta made without added fat. Don't have: Lithuanian fries, potato chips, potatoes prepared with butter, refried beans. Soups OK: Clear broth soups without fat and with allowed vegetables. Don't have: Cream-based soups. Vegetables OK: Fresh, frozen, canned or dried vegetables, all made without added fat. Don't have: Fried vegetables and those prepared with butter, cream, sauces. Other foods OK: Salsa, spices and herbs, mustard, ketchup, lemon, and vinegar. Though some foods like sugar, jelly, hard candy, marshmallows, honey, syrup, and salt contain no fat, it's still a good idea to watch portion sizes. The Dietary Guidelines for Americans recommend that less than 10% of daily calories come from added sugars. Don't have: Chocolate, nuts, coconut, and cream candies; sunflower, sesame, and other seeds; fried foods; cream sauces and gravies; pizza. Last Reviewed Date: 2024 00:00:00 ? [id number] The [employer] Access [employer]. All rights reserved. This information is not intended as a substitute for professional medical care. Always follow your healthcare professional's instructions. [facility]2025-09-16 17:04:34 Images from the original note were not included. [id number] Tramadol IMPORTANT WARNING: Tramadol may be habit forming, especially with prolonged use. Take tramadol exactly as directed. Do not take more of it, take it more often, or take it in a different way than directed by your doctor. While taking tramadol, discuss with your health care provider your pain treatment goals, length of treatment, and other ways to manage your pain. Tell your doctor if you or anyone in your family drinks or has ever drunk large amounts of alcohol, uses or has ever used street drugs, or has overused prescription medications, or has had an overdose or if you have or have ever had depression or another mental illness. There is a greater risk that you will overuse tramadol if you have or have ever had any of these conditions. Talk to your health care provider immediately and ask for guidance if you think that you have an opioid addiction or call the U.[place]. Substance Abuse and Mental Health Services Administration ([facility]) National Helpline at 4-259-670-LTLB. Tramadol may cause serious or life-threatening breathing problems, especially during the first 24 to 72 hours of your treatment and any time your dose is increased. Your doctor will monitor you carefully during your treatment. Tell your doctor if you have or have ever had slowed breathing, asthma, or lung disease such as chronic obstructive pulmonary disease (COPD; a group of diseases that affect the lungs and airways). Your doctor will probably tell you not to take tramadol. Also tell your doctor if you have or have ever had a head injury, brain tumor, or any condition that increases the amount of pressure in your brain. The risk that you will develop breathing problems may be higher if you are an older adult or are weak or malnourished due to disease. If you experience any of the following symptoms, call your doctor immediately or get emergency medical treatment: slowed breathing, long pauses between breaths, or shortness of breath. When tramadol was used in children, serious and life-threatening breathing problems such as slow or difficulty breathing and deaths were reported. Tramadol should never be used to treat pain in children younger than 12 years of age or to relieve pain after surgery to remove the tonsils and/or adenoids in children younger than 18 years of age. Tramadol should also not be used in used in children 12 to 18 years of age who are obese or who have a neuromuscular disease (disease that affects the nerves that control voluntary muscles), a lung disease, or obstructive sleep apnea (condition in which the airway becomes blocked or narrow and breathing stops for short periods during sleep) as these conditions may increase their risk of breathing problems. Taking certain other medications during your treatment with tramadol may increase the risk that you will experience breathing problems or other serious, life threatening breathing problems, sedation, or coma. Tell your doctor and pharmacist what other prescription and nonprescription medications, vitamins, and nutritional supplements you are taking or plan to take. Your doctor may need to change the dosages of your medications and will monitor you carefully. If you take tramadol with other medications and you develop any of the following symptoms, call your doctor immediately or seek emergency medical care: unusual dizziness, lightheadedness, extreme sleepiness, slowed or difficult breathing, or unresponsiveness. Be sure that your caregiver or family members know which symptoms may be serious so they can call the doctor or emergency medical care if you are unable to seek treatment on your own. Drinking alcohol, taking prescription or nonprescription medications that contain alcohol, or using street drugs during your treatment with tramadol increases the risk that you will experience these serious, life-threatening side effects. Do not drink alcohol, take prescription or nonprescription medications that contain alcohol, or use street drugs during your treatment. Tell your doctor if you are or plan to become . If you take tramadol regularly during your , your baby may experience life-threatening withdrawal symptoms after . Tell your baby's doctor right away if your baby experiences any of the following symptoms: irritability, hyperactivity, abnormal sleep, high-pitched cry, uncontrollable shaking of a part of the body, vomiting, diarrhea, or failure to gain weight. If you are taking the tramadol extended-release tablet or capsule, swallow them whole; do not chew, break, divide, crush, or dissolve them. If you swallow broken, chewed, crushed, or dissolved extended-release preparations, you may receive too much tramadol at once instead and this may cause serious problems, including overdose and . Do not allow anyone else to take your medication. Tramadol may harm or cause to other people who take your medication, especially children. Your doctor or pharmacist will give you the shredded filler machine wrapper layer's patient information sheet (Medication Guide) when you begin treatment with tramadol and each time you refill your prescription. Read the information carefully and ask your doctor or pharmacist if you have any questions. You can also visit the Food and Drug Administration (FDA) website (https://www.fda.gov/Drugs/DrugSafety/aeg679357.htm) or the shredded filler machine wrapper layer's website to obtain the Medication Guide. WHY is this medicine prescribed? Tramadol immediate-release tablets and oral solution are used as a short-term treatment to relieve severe pain (pain that begins suddenly, has a specific cause, and is expected to go away when the cause of the pain is healed) in people who are expected to need an opioid pain medication and who cannot be controlled by the use of alternative pain medications. Tramadol extended-release tablets and capsules are used to relieve severe and persistent pain in people who are expected to need an opioid pain medication to relieve pain [id number] for a long time and who cannot be treated with other pain medications. Tramadol extended-release tablets and capsules should not be used to treat mild or moderate pain, short-term pain, or pain that can be controlled by medication that is taken as needed. Tramadol is in a class of medications called opiate (narcotic) analgesics. It works by changing the way the brain and nervous system respond to pain. HOW should this medicine be used? Tramadol comes as an immediate-release tablet, a solution (liquid), an extended-release (long-acting) tablet, and an extended-release (long-acting) capsule to take by mouth. The immediate-release tablet and solution are taken usually with or without food every 4 to 6 hours as needed (usually for no more than a few days). The extended-release tablet and extended-release capsule should be taken once a day. Take the extended-release tablet and the extended-release capsule at about the same time of day every day. If you are taking the extended-release tablet or extended-release capsule, you should take it consistently, either always with or always without food. Take tramadol exactly as directed. Do not take more medication as a single dose or take more doses per day than prescribed by your doctor. Taking more tramadol than prescribed by your doctor or in a way that is not recommended may cause serious side effects or . Your doctor may start you on a low dose of tramadol and gradually increase the amount of medication you take, not more often than every 3 days if you are taking the solution or regular tablets or every 5 days if you are taking the extended-release tablets or extended-release capsules. If you are taking the solution, use an oral syringe or measuring spoon or cup to measure the correct amount of liquid needed for each dose. Do not use a regular household spoon to measure your dose. Ask your doctor or pharmacist if you need help getting or using a measuring device, Do not stop taking tramadol without talking to your doctor. Your doctor will probably decrease your dose gradually. If you suddenly stop taking tramadol, you may experience withdrawal symptoms such as nervousness; panic; sweating; difficulty falling asleep or staying asleep; runny nose, sneezing, or cough; pain; hair standing on end; chills; nausea; uncontrollable shaking of a part of your body; diarrhea; or rarely, hallucinations (seeing things or hearing voices that do not exist). Tell your doctor if your pain increases, gets worse, or if you have new pain or an increased sensitivity to pain, especially after taking tramadol. Do not take more of it or take it more often than prescribed by your doctor. Are there OTHER USES for this medicine? This medication is sometimes prescribed for other uses; ask your doctor or pharmacist for more information. What SPECIAL PRECAUTIONS should I follow? Before taking tramadol, ? tell your doctor and pharmacist if you are allergic to tramadol, other opiate pain medications, any other medications, or any of the ingredients in tramadol tablets, capsules, and oral solution. Ask your pharmacist for a list of the ingredients. ? tell your doctor or pharmacist if you are taking or receiving the following medications or if you have stopped taking them within the past 2 weeks: isocarboxazid (Marplan), linezolid (Zyvox), methylene blue, phenelzine (Nardil), selegiline (Emsam, Zelapar), or tranylcypromine (Parnate). ? The following nonprescription or herbal products may interact with tramadol: Hiram's wort and tryptophan. Be sure to let your doctor and pharmacist know that you are taking these medications before you start taking tramadol. Do not start these medications while taking tramadol without discussing it with your healthcare provider. ? tell your doctor if you have any of the conditions mentioned in the IMPORTANT WARNING section, a blockage or narrowing of your stomach or intestines, or paralytic ileus (condition in which digested food does not move through the intestines). Your doctor may tell you not to take tramadol if you have any of these conditions. ? tell your doctor if you have or have ever had seizures; an infection in your brain or spine; difficulty urinating; low blood levels of sodium; thoughts about harming or killing yourself or planning or trying to do so; diabetes; pancreas, gall bladder, or thyroid problems; or kidney or liver disease. ? tell your doctor if you are . You should not breastfeed while taking tramadol. Tramadol can cause shallow breathing, difficulty or noisy breathing, confusion, more than usual sleepiness, trouble , or limpness in breastfed infants. ? you should know that this medication may decrease fertility in men and women. Talk to your doctor about the risks of taking tramadol. ? if you are having surgery, including dental surgery, tell the doctor or dentist that you are taking tramadol. ? you should know that this medication may make you drowsy and may affect your coordination. Do not drive a car or operate machinery until you know how this medication affects you. ? you should know that tramadol may cause dizziness, lightheadedness, and fainting when you get up from a lying position. To avoid this, get out of bed slowly, resting your feet on the floor for a few minutes before standing up. ? you should know that tramadol may cause constipation. Talk to your doctor about changing your diet and using other medications to treat or prevent constipation. What SPECIAL DIETARY instructions should I follow? Unless your doctor tells you otherwise, continue your normal diet. What should I do IF I FORGET to take a dose? If your doctor has told you to take tramadol regularly, take the missed dose as soon as you remember it. However, if it is almost time for the next dose, skip the missed dose and continue your regular dosing schedule. Do not take a double dose to make up for a missed one. What SIDE EFFECTS can this medicine cause? Some side effects can be serious. If you experience any of these symptoms or those mentioned in the IMPORTANT WARNING section, call your doctor immediately or get emergency medical treatment: ? hives ? rash ? blisters ? hoarseness ? difficulty swallowing or breathing ? chest pain ? swelling of the eyes, face, throat, tongue, lips, hands, feet, ankles, or lower legs ? agitation, hallucinations (seeing things or hearing voices that do not exist), fever, sweating, confusion, fast heartbeat, shivering, severe muscle stiffness or twitching, loss of coordination, or diarrhea ? nausea, vomiting, loss of appetite, fatigue, weakness, or dizziness ? changes in heartbeat ? headache, confusion, loss of energy, drowsiness, restlessness, muscle weakness, spasms or cramps ? hunger, shaking of a part of your body that you cannot control, irritability, or difficulty concentrating ? loss of consciousness ? seizures If you experience a serious side effect, you or your doctor may send a report to the Food and Drug Administration's (FDA) MedWatch Adverse Event Reporting program online (https://www.fda.gov/Safety/MedWatch) or by phone ( ). Tramadol may cause other side effects. Tell your doctor if you have any unusual problems while you are taking this medication. What should I know about STORAGE and DISPOSAL of this medication? Keep this medication in the container it came in, tightly closed, and out of reach of children. Store it at room temperature and away from excess heat and moisture (not in the bathroom). Keep all medication out of sight and reach of children as many containers are not child-resistant. Always lock safety caps. Place the medication in a safe location - one that is up and away and out of their sight and reach. https://www.[employer].ApnaPaisa Dispose of unneeded medications in a way so that pets, children, and other people cannot take them. Do not flush this medication down the toilet. Use a medicine take-back program. Talk to your pharmacist about take-back programs in your community. Visit the FDA's Safe Disposal of Medicines website https://goo.gl/c4Rm4p for more information. What should I do in case of OVERDOSE? In case of overdose, call the poison control helpline at . Information is also available online at https://www.poisonhelp.org/help. If the victim has collapsed, had a seizure, has trouble breathing, or can't be awakened, immediately call emergency services at [phone]. While taking tramadol, you should talk to your doctor about having a rescue medication called naloxone readily available (e.g., home, office). Naloxone is used to reverse the life-threatening effects of an overdose. It works by blocking the effects of opiates to relieve dangerous symptoms caused by high levels of opiates in the blood. Your doctor may also prescribe you naloxone if you are living in a household where there are small children or someone who has abused street or prescription drugs. You should make sure that you and your family members, caregivers, or the people who spend time with you know how to recognize an overdose, how to use naloxone, and what to do until emergency medical help arrives. Your doctor or pharmacist will show you and your family members how to use the medication. Ask your pharmacist for the instructions or visit the shredded filler machine wrapper layer's website to get the instructions. If symptoms of an overdose occur, a friend or family member should give the first dose of naloxone, call 911 immediately, and stay with you and watch you closely until emergency medical help arrives. Your symptoms may return within a few minutes after you receive naloxone. If your symptoms return, the person should give you another dose of naloxone. Additional doses may be given every 2 to 3 minutes, if symptoms return before medical help arrives. Symptoms of overdose may include the following: ? decreased size of the pupil (the black belkofski in the center of the eye) ? difficulty breathing ? slow or shallowing breathing ? extreme drowsiness or sleepiness ? unable to respond or wake up ? slowed heartbeat ? muscle weakness ? cold, clammy skin What OTHER INFORMATION should I know? Keep all appointments with your doctor and laboratory. Your doctor may order certain lab tests to check your body's response to tramadol. Before having any laboratory test (especially those that involve methylene blue), tell your doctor and the laboratory personnel that you are taking tramadol. Do not let anyone else take your medication. Tramadol is a controlled substance. Prescriptions may be refilled only a limited number of times; ask your pharmacist if you have any questions. Keep a written list of all of the prescription and nonprescription (oamk-hay-qzhhyeu) medicines, vitamins, minerals, and dietary supplements you are taking. Bring this list with you each time you visit a doctor or if you are admitted to the hospital. You should carry the list with you in case of emergencies. Brand Name(s): ? Conzip? ? Qdolo? ? Rybix? ODT? ? Ryzolt? ? Ultram? ? Ultram? ER? ? Ultracet? (as a combination product containing Acetaminophen, Tramadol)? ? Seglentis? (as a combination product containing Celecoxib, Tramadol) also available generically ? This branded product is no longer on the market. Generic alternatives may be available. This report on medications is for your information only, and is not considered individual patient advice. Because of the changing nature of drug information, please consult your physician or pharmacist about specific clinical use. The [place] [employer] represents that the information provided hereunder was formulated with a reasonable standard of care, and in conformity with professional standards in the field. The [place] [employer] makes no representations or warranties, express or implied, including, but not limited to, any implied warranty of merchantability and/or fitness for a particular purpose, with respect to such information and specifically disclaims all such warranties. Users are advised that decisions regarding drug therapy are complex medical decisions requiring the independent, informed decision of an appropriate health reproductive healthcare assistant, and the information is provided for informational purposes only. The entire monograph for a drug should be reviewed for a thorough understanding of the drug's actions, uses and side effects. The [place] [employer] does not endorse or recommend the use of any drug. The information is not a substitute for medical care. AHFS? Patient Medication Information?. ? Copyright, 2023. The [place] [employer]?, [address], [address], [place], [place]. All Rights Reserved. Duplication for commercial use must be authorized by [facility]. Selected Revisions: August 06, 2023. AHFS? Patient Medication Information?. ? Copyright, 2024 [id number] 17:04:27 Images from the original note were not included. [id number] Pantoprazole WHY is this medicine prescribed? Pantoprazole is used to treat damage from gastroesophageal reflux disease (GERD), a condition in which backward flow of acid from the stomach causes heartburn and possible injury of the esophagus (the tube between the throat and stomach) in adults and children 5 years of age and older. Pantoprazole is used to allow the esophagus to heal and prevent further damage to the esophagus in adults with GERD. It is also used to treat conditions where the stomach produces too much acid, such as Pennie-Nelson syndrome in adults. Pantoprazole is in a class of medications called proton-pump inhibitors. It works by decreasing the amount of acid made in the stomach. HOW should this medicine be used? Pantoprazole comes as a delayed-release (releases the medication in the intestine to prevent break-down of the medication by stomach acids) tablet and as delayed-release granules to take by mouth. The packets of delayed-release granules must be mixed with applesauce or apple juice and taken by mouth or given through a feeding tube. For the treatment and maintenance of GERD, pantoprazole is usually taken once a day. For the treatment of conditions where the stomach produces too much acid, pantoprazole is usually taken twice a day. The delayed-release tablets are usually taken with or without food, and the granules are usually taken 30 minutes before a meal. Take pantoprazole at around the same time(s) every day. Follow the directions on your prescription label carefully, and ask your doctor or pharmacist to explain any part you do not understand. Take pantoprazole exactly as directed. Do not take more or less of it or take it more often or for a longer period of time than prescribed by your doctor. Swallow the tablets whole; do not split, chew, or crush them. If your doctor has prescribed the 40 mg tablet and it is too big for you to swallow, ask your doctor to prescribe two of the 20 mg tablets instead. To take the granules, open the packet and either sprinkle the granules onto one teaspoonful of applesauce or into a cup containing one teaspoonful of apple juice. Do not mix the granules with water, other liquids, or other foods. Use all of the granules in the packet; do not divide the granules into smaller doses. If you sprinkle the granules into apple juice, stir the mixture for 5 seconds. Swallow the mixture of applesauce or apple juice and medication right away (within 10 minutes) without chewing or crushing the granules. If you sprinkled the granules on applesauce, take several sips of water to wash the granules down to your stomach. If you sprinkled the granules into apple juice, rinse the cup once or twice with apple juice and drink the apple juice right away to be sure you swallow any leftover granules. Pantoprazole granules mixed with apple juice may be given through a feeding tube. If you have a feeding tube, ask your doctor how you should take pantoprazole. Continue to take pantoprazole even if you feel well. Do not stop taking pantoprazole without talking to your doctor. If your condition does not improve or gets worse, call your doctor. Ask your pharmacist or doctor for a copy of the shredded filler machine wrapper layer's information for the patient. Are there OTHER USES for this medicine? This medication may be prescribed for other uses; ask your doctor or pharmacist for more information. What SPECIAL PRECAUTIONS should I follow? Before taking pantoprazole, ? tell your doctor and pharmacist if you are allergic to pantoprazole, dexlansoprazole (Dexilant), esomeprazole (Nexium, in Vimovo), lansoprazole (Prevacid), omeprazole (Prilosec, in Talicia, in Zegerid), rabeprazole (AcipHex), any other medications, or any of the ingredients in pantoprazole tablets or granules. Ask your pharmacist for a list of the ingredients. ? Some medications should not be taken with pantoprazole. Other medications may cause dosing changes or extra monitoring when taken with pantoprazole. Make sure you have discussed any medications you are currently taking or plan to take before starting pantoprazole with your doctor and pharmacist. Before starting, stopping, or changing any medications while taking pantoprazole, please get the advice of your doctor or pharmacist. ? The following nonprescription or herbal products may interact with pantoprazole: iron supplements. Be sure to let your doctor and pharmacist know that you are taking these medications before you start taking pantoprazole. Do not start any of these medications while taking pantoprazole without discussing with your healthcare provider. ? tell your doctor if you have or have ever had a low level of magnesium, calcium, or potassium in your blood; hypoparathyroidism (condition in which the body does not produce enough parathyroid hormone [PTH; a natural substance needed to control the amount of calcium in the blood]); low levels of vitamin B12 in your body; osteoporosis (a condition in which the bones become thin and weak and break easily); or an autoimmune disease (condition in which the body attacks its own organs causing swelling and loss of function) such as systemic lupus erythematosus. ? tell your doctor if you are , plan to become , or are . If you become while taking pantoprazole, call your doctor. ? talk to your doctor about the risks and benefits of taking pantoprazole if you are 70 years of age or older. Do not take this medication for a longer period of time than recommended by your doctor. What SPECIAL DIETARY instructions should I follow? Unless your doctor tells you otherwise, continue your normal diet. What should I do IF I FORGET to take a dose? Take the missed dose as soon as you remember it. However, if it is almost time for your next dose, skip the missed dose and continue your regular dosing schedule. Do not take a double dose to make up for a missed dose. What SIDE EFFECTS can this medicine cause? Pantoprazole may cause side effects. Tell your doctor if any of these symptoms are severe or do not go away: ? headache ? nausea ? vomiting ? gas ? joint pain ? diarrhea ? dizziness ? in men, difficulty achieving or maintaining an erection Some side effects may be serious. If you experience any of the following symptoms, call your doctor immediately, or get emergency medical help: ? blistering, peeling, or bleeding skin; sores on the lips, nose, mouth, or genitals; swollen glands; shortness of breath; fever; or flu-like symptoms ? rash hives; itching; swelling of the eyes, face, lips, mouth, throat, or tongue; difficulty breathing or swallowing; or hoarseness ? irregular, fast, or pounding heartbeat muscle spasms; uncontrollable shaking of a part of the body; excessive tiredness; lightheadedness; dizziness; or seizures ? severe diarrhea with watery stools, stomach pain, or fever that does not go away ? new or worsening joint pain; rash on cheeks or arms that is sensitive to sunlight ? increased or decreased urination, blood in urine, fatigue, nausea, loss of appetite, fever, rash, or joint pain Pantoprazole may cause other side effects. Call your doctor if you have any unusual problems while taking this medication. People who take proton pump inhibitors such as pantoprazole may be more likely to fracture their wrists, hips, or spine than people who do not take one of these medications. People who take proton pump inhibitors may also develop fundic gland polyps (a type of growth on the stomach lining). These risks are highest in people who take high doses of one of these medications or take them for one year or longer. Talk to your doctor about the risks of taking pantoprazole. If you experience a serious side effect, you or your doctor may send a report to the Food and Drug Administration's (FDA) MedWatch Adverse Event Reporting program online (https://www.fda.gov/Safety/MedWatch) or by phone ( ). What should I know about STORAGE and DISPOSAL of this medication? Keep this medication in the container it came in, tightly closed, and out of reach of children. Store it at room temperature and away from excess heat and moisture (not in the bathroom). Keep all medication out of sight and reach of children as many containers are not child-resistant. Always lock safety caps. Place the medication in a safe location - one that is up and away and out of their sight and reach. https://www.upandaway.org Dispose of unneeded medications in a way so that pets, children, and other people cannot take them. Do not flush this medication down the toilet. Use a medicine take-back program. Talk to your pharmacist about take-back programs in your community. Visit the FDA's Safe Disposal of Medicines website https://goo.gl/c4Rm4p for more information. What should I do in case of OVERDOSE? In case of overdose, call the poison control helpline at . Information is also available online at https://www.poisonhelp.org/help. If the victim has collapsed, had a seizure, has trouble breathing, or can't be awakened, immediately call emergency services at [phone]. What OTHER INFORMATION should I know? Keep all appointments with your doctor and the laboratory. Your doctor may order certain laboratory tests before and during your treatmen. Before having any laboratory test, tell your doctor and the laboratory personnel that you are taking pantoprazole. Do not let anyone else take your medication. Ask your pharmacist any questions you have about refilling your prescription. Keep a written list of all of the prescription and nonprescription (hlfd-wlm-hvtxrjc) medicines, vitamins, minerals, and dietary supplements you are taking. Bring this list with you each time you visit a doctor or if you are admitted to the hospital. You should carry the list with you in case of emergencies. Brand Name(s): ? Protonix? also available generically This report on medications is for your information only, and is not considered individual patient advice. Because of the changing nature of drug information, please consult your physician or pharmacist about specific clinical use. The [place] [employer] represents that the information provided hereunder was formulated with a reasonable standard of care, and in conformity with professional standards in the field. [employer] [place] [employer] makes no representations or warranties, express or implied, including, but not limited to, any implied warranty of merchantability and/or fitness for a particular purpose, with respect to such information and specifically disclaims all such warranties. Users are advised that decisions regarding drug therapy are complex medical decisions requiring the independent, informed decision of an appropriate health reproductive healthcare assistant, and the information is provided for informational purposes only. The entire monograph for a drug should be reviewed for a thorough understanding of the drug's actions, uses and side effects. The [place] [employer] does not endorse or recommend the use of any drug. The information is not a substitute for medical care. AHFS? Patient Medication Information?. ? Copyright, 2023. The [place] [employer]?, [address], [address], [place], [place]. All Rights Reserved. Duplication for commercial use must be authorized by [facility]. Selected Revisions: April 07, 2023. AHFS? Patient Medication Information?. ? Copyright, 2024 Destini [id number] 17:04:21 Images from the original note were not included. [id number] Stool Softeners WHY is this medicine prescribed? Stool softeners are used on a short-term basis to relieve constipation by people who should avoid straining during bowel movements because of heart conditions, hemorrhoids, and other problems. They work by softening stools to make them easier to pass. HOW should this medicine be used? Stool softeners come as a capsule, tablet, liquid, and syrup to take by mouth. A stool softener usually is taken at bedtime. Follow the directions on the package or your prescription label carefully, and ask your doctor or pharmacist to explain any part you do not understand. Take stool softeners exactly as directed. Do not take more or less of it or take it more often than prescribed by your doctor. Swallow the docusate capsules whole; do not split, chew, or crush them. Take capsules and tablets with a full glass of water. The liquid comes with a specially marked dropper for measuring the dose. Ask your pharmacist to show you how to use it if you have difficulty. Mix the liquid (not the syrup) with 4 ounces (120 milliliters) of milk, fruit juice, or formula to mask its bitter taste. One to three days of regular use usually are needed for this medicine to take effect. Do not take stool softeners for more than 1 week unless your doctor directs you to. If sudden changes in bowel habits last longer than 2 weeks or if your stools are still hard after you have taken this medicine for 1 week, call your doctor. Are there OTHER USES for this medicine? This medication may be prescribed for other uses; ask your doctor or pharmacist for more information. What SPECIAL PRECAUTIONS should I follow? Before taking stool softeners, ? tell your doctor and pharmacist if you are allergic to any stool softeners, any other medications, or to any of the ingredients in the stool softeners, Ask your pharmacist for a list of the ingredients. ? tell your doctor and pharmacist what prescription and nonprescription medications, vitamins, nutritional supplements, and herbal products you are taking or plan to take while taking stool softeners. Your doctor may need to change the doses of your medications or monitor you carefully for side effects. ? the following nonprescription product may interact with stool softeners: mineral oil. Be sure to let your doctor and pharmacist know that you are taking this medication before you start taking stool softeners. Do not start any of this medication while taking stool softeners without discussing with your healthcare provider. ? tell your doctor if you are , plan to become , or are . If you become while taking stool softeners, call your doctor. What should I do IF I FORGET to take a dose? This medication usually is taken as needed. If your doctor has told you to take stool softeners regularly, take the missed dose as soon as you remember it. However, if it is almost time for the next dose, skip the missed dose and continue your regular dosing schedule. Do not take a double dose to make up for a missed one. What SIDE EFFECTS can this medicine cause? Some side effects can be serious. If you experience any of the following symptoms, call your doctor immediately: ? rash ? hives ? difficulty breathing or swallowing ? fever ? vomiting ? stomach pain If you experience a serious side effect, you or your doctor may send a report to the Food and Drug Administration's (FDA) MedWatch Adverse Event Reporting program online (https://www.fda.gov/Safety/MedWatch) or by phone ( ). What should I know about STORAGE and DISPOSAL of this medication? Keep this medication in the container it came in, tightly closed, and out of reach of children. Store it at room temperature and away from excess heat and moisture (not in the bathroom). Keep all medication out of sight and reach of children as many containers are not child-resistant. Always lock safety caps. Place the medication in a safe location - one that is up and away and out of their sight and reach. https://www.zoojoo.BEndAugmate.org Dispose of unneeded medications in a way so that pets, children, and other people cannot take them. Do not flush this medication down the toilet. Use a medicine take-back program. Talk to your pharmacist about take-back programs in your community. Visit the FDA's Safe Disposal of Medicines website https://goo.gl/c4Rm4p for more information. What OTHER INFORMATION should I know? Ask your pharmacist any questions you have about taking this medicine. Keep a written list of all of the prescription and nonprescription (necv-kyc-lfimzve) medicines, vitamins, minerals, and dietary supplements you are taking. Bring this list with you each time you visit a doctor or if you are admitted to the hospital. You should carry the list with you in case of emergencies. Brand Name(s): ? Colace? ? Correctol Soft Gels? ? Diocto? ? Ex-Lax Stool Softener? ? Fleet Sof-Lax? ? Canela' Liqui-Gels? ? Surfak? ? Correctol 50 Plus? (as a combination product containing Docusate, Sennosides) ? Ex-Lax Gentle Strength? (as a combination product containing Docusate, Sennosides) ? Gentlax S? (as a combination product containing Docusate, Sennosides) ? Akiko-Colace? (as a combination product containing Docusate, Sennosides) ? Senokot S? (as a combination product containing Docusate, Sennosides) also available generically dioctyl calcium sulfosuccinate, dioctyl sodium sulfosuccinate, docusate calcium, docusate sodium, JESSICA, DSS This report on medications is for your information only, and is not considered individual patient advice. Because of the changing nature of drug information, please consult your physician or pharmacist about specific clinical use. The [place] [employer] represents that the information provided hereunder was formulated with a reasonable standard of care, and in conformity with professional standards in the field. The [place] [employer] makes no representations or warranties, express or implied, including, but not limited to, any implied warranty of merchantability and/or fitness for a particular purpose, with respect to such information and specifically disclaims all such warranties. Users are advised that decisions regarding drug therapy are complex medical decisions requiring the independent, informed decision of an appropriate health reproductive healthcare assistant, and the information is provided for informational purposes only. The entire monograph for a drug should be reviewed for a thorough understanding of the drug's actions, uses and side effects. The [place] [employer] does not endorse or recommend the use of any drug. The information is not a substitute for medical care. AHFS? Patient Medication Information?. ? Copyright, 2023. The [place] [employer]?, [address], [address], [place], [place]. All Rights Reserved. Duplication for commercial use must be authorized by [facility]. Selected Revisions: November 11, 2023. AHFS? Patient Medication Information?. ? Copyright, 2024 [facility]2025-09-16 17:04:15 Images from the original note were not included. 15 [facility]2025-09-16 17:03:36 Images from the original note were not included. [id number] What Are Gallstones? The gallbladder stores bile, a fluid made by the liver. Bile helps digest fats in the foods you eat. Gallstones form when certain substances in the bile crystallize and become solid. In some cases, the stones don?t cause any symptoms. In others, they irritate the rios of the gallbladder. More serious problems can occur if stones move into nearby ducts (such as the common bile duct) and cause blockages. This can block the flow of bile and lead to pain, nausea, and infection. Common symptoms Gallbladder problems can cause painful attacks, often after a meal. Some people have only 1 attack. Others have many. Common symptoms include: ? Severe, steady pain or aching in the upper right or middle belly (abdomen), back, or right shoulder blade. This can last from 30 minutes to several hours. ? A dull ache under the ribs or breastbone. ? Upset stomach (nausea) or vomiting. ? A buildup of too much bile in the blood. This causes yellowing of the skin and eyes, dark urine, and itching (jaundice). Call your health care provider right away if this occurs. Risk factors for gallstones You are more at risk for gallstones if you: ? Are female. ? Have obesity. ? Have a family history of gallstones. ? Are older (the risk goes up with age). ? Have a history of very fast (rapid) weight loss, or weight gain. ? Have certain intestinal diseases, such as Crohn's disease. ? Have certain blood diseases, such as sickle cell anemia. ? Have a family background that includes [place] Americans or [place] Americans. Diagnosis Ultrasound is often used to look at the gallbladder and measure the size and exact location of the gallstones. A special MRI test called an MRCP may be used to show the gallbladder, pancreas, and the ducts (pipes) that drain bile if there is a concern that the gallstones have caused problems. Blood tests are used to measure liver enzymes and bilirubin. Both of these may be high if the gallstones are blocking bile flow or irritating the liver. Treating gallstones If your stones aren't causing symptoms, you may choose to delay treatment. But if you've had 1 or more painful attacks, your provider will likely advise removing your gallbladder. This prevents more stones from forming and causing attacks. It also helps prevent problems, such as stones passing into the ducts and causing blockage, infection, or pancreatitis. After the gallbladder is removed, your liver will still make bile to aid digestion. If you're Hormone changes during can make bile more likely to form stones. If your gallbladder needs to be removed, your provider will talk with you about the timing for surgery. In some cases, it can be delayed until after childbirth. In others, you may have surgery during . This helps protect you and your baby?s health. Last Reviewed Date: 2024 00:00:00 ? [id number] The [employer]. All rights reserved. This information is not intended as a substitute for professional medical care. Always follow your healthcare professional's instructions. Destini GaliciaYaicrqv1003-16-26 07:50:54 Images from the original note were not included. [id number] Having Laparoscopic Cholecystectomy You?ve had painful attacks caused by gallstones. Because of this, you are having surgery to remove your gallbladder. This is called cholecystectomy. A method called laparoscopy will be used. This allows surgery to be done through a few small cuts (incisions). Possible incision sites. Before your surgery ? Tell your health care provider what medicines you take. This includes prescription medicines, cisb-kts-oioqjnl medicines, illegal drugs, herbs, vitamins, and other supplements. Be sure to mention if you take prescription blood thinners. This includes warfarin, clopidogrel, lovenox, rivaroxaban, edoxaban, apixaban, and dabigatran. Also tell your provider if you take NSAIDs, such as naproxen, ibuprofen, or aspirin. You may be asked to stop taking certain medicines several days before surgery. ? If you drink alcohol, tell your provider how much you drink. This is very important if you are a heavy drinker or have had alcohol withdrawal symptoms in the past. Alcohol withdrawal can be dangerous. But the symptoms can be safely managed if your provider knows your alcohol history. ? Have any tests your provider asks for, such as blood and urine tests and an electrocardiogram (ECG). ? Don?t eat or drink after midnight the night before your surgery. This includes water, coffee, and mints. ? Wash with a special scrub, if you are told to do so. The day of surgery ? Your provider may have you take your normal medicine with a sip of water. Check with your provider. When you arrive, you will prepare for surgery: ? An I.V. (intravenous) line will be put into a vein in your arm or hand. This I.V. line is the way you are given fluids and medicine. ? An anesthesiologist will talk with you about your health history and the anesthesia you will get during the procedure. You will likely receive general anesthesia, which allows you to sleep comfortably throughout the procedure. During laparoscopic surgery For this surgery, a thin tube with a tiny camera is used. This is called a laparoscope. The scope sends images from inside your body to a video screen. This lets the surgeon view and work on your gallbladder. ? Small incisions are made in your belly (abdomen). The scope is put through one of the incisions. Surgical tools are put through other incisions. ? Small clips are used to close off the connection between the gallbladder and the bile duct. The gallbladder is then detached from the liver. ? The gallbladder is removed through one of the incisions. Bile still flows from the liver to the small intestine. ? When the surgery is done, all tools are removed. Incisions are closed with stitches (sutures), surgical glue, or jennifer. ? Your surgeon may have done this procedure using a surgical robot. The surgeon guides a special robot instead of guiding the surgical tools by hand. This is commonly called robotic surgery. It uses several small incisions, and the recovery is generally the same as with laparoscopy. Sometimes, a laparoscopic surgery may need to be changed to an open surgery. This method uses one large incision. This change may happen because of scar tissue, unusual anatomy, or for some other unexpected reason. After surgery You will be sent to the postanesthesia care unit (PACU) to be closely monitored. You will likely go home the same day. In some cases, an overnight stay for observation is needed. When you are released to go home, have a family member or friend ready to drive you. Follow all post-op instructions given by your provider. This may include not driving, working, or lifting heavy objects for a period of time. Risks of this surgery All surgeries have risks. The risks of gallbladder surgery include: ? Bleeding. ? Infection. ? Injury to the common bile duct or nearby organs. ? Blood clots in the legs or lungs. ? Bile leaks. ? A hernia at the incision site. ? Pneumonia. Last Reviewed Date: 2024 00:00:00 ? [id number] The Direct Access Software. All rights reserved. This information is not intended as a substitute for professional medical care. Always follow your healthcare professional's instructions. Destini [id number] 07:50:04 Images from the original note were not included. 16 Opioids and Pain Management: For Adult Patients Understanding pain goals after surgery, major illness and trauma Our goal is to control your pain well enough so that you can do the things you need to heal; walk, sleep, eat, and breathe deeply. We will use the least amount of opioids necessary to control your pain. Things to know: Pain after injury, surgery and severe illness is normal. Everyone feels pain differently. Pain is usually worse in the first 2 to 3 days after surgery. Non-opioid medications like acetaminophen (Tylenol@), Ibuprofen (Advil@, Motrin@) and gabapentin (Neurontin@) can be effective at controlling pain. Other methods of pain relief: ? Exercise and physical therapy ? Relaxation and meditation ? Hot and cold packs ? Distraction (take your mind off the pain) ? Music Talk to your nurse or doctor if your pain is not well controlled. What is an opioid? An opioid is a strong prescription medication used for pain relief. Common names of opioids: ? tramadol (Ultram@) The opioid medications below also contain ? oxycodone (OxyContin@) acetaminophen (Tylenol@): ? methadone (Dolophine@) ? codeine (Tylenol #3@, Tylenol #4@) ? morphine (MS Contin@, Brittany@) ? hydrocodone ([place]@, Vicodin@) ? hydromorphone (Dilaudid@) ? oxycodone (Percocet Common side effects: Constipation Ask your nurse or doctor about laxatives or stool softeners to take with opioids. Drowsiness or sleepiness You may be at increased risk for falls or injury. Ask for help when getting out of bed or walking. Nausea/Vomiting Tell your nurse or doctor. Itching Talk to your doctor before using ajxb-rqt-yhgkpxm medications. Some medications, like diphenhydramine (Benadryl@), may cause more side effects if given with an opioid. Using opioids safely at the hospital and at home Take non-opioid medications as prescribed to prevent severe pain. Only use opioids if you have severe pain that is not relieved with other prescribed non-opioid medications. Do not use opioids for any other reason. As your pain lessens, use opioids less frequently. Let your doctor know if you are currently taking any benzodiazepines, like diazepam (Valium@) or alprazolam (Xanax@). Do not drive or operate heavy machinery. Opioids can impair your ability to think clearly. You are at risk of an overdose: If you mix opioids with: ? Alcohol ? Benzodiazepines like diazepam (Valium@) or alprazolam (Xanax@) ? Muscle relaxers like carisoprodol (Soma@) ? Street drugs ? Other medications that can cause drowsiness -OR- If you have a history of: ? Sleep apnea ? Other breathing problems If you feel you are at a high risk of overdose at home, talk to your doctor about naloxone, a medication that counters the effects of opioid overdose. Your opioids are only for you. DO NOT share your opioids with others. Safe storage of your opioids Safely dispose of unused opioids Keep opioids out of reach from infants, children, teens and pets: ? Lock away all medications, if possible. ? Keep count of how many pills you have remaining. ? Do not store opioids in easy to access places (example: bathroom, kitchen). ? Mix (do not crush) medications with used coffee grounds or lizett litter in a plastic bag and throw away. ? Drop off at medication take-back drives. ? Use participating public disposal boxes. Locate a site near you using the [employer] website: http://takebackday.[place]1.gov. Do NOT flush medications down the toilet. Know the facts about opioid addiction You are at higher risk of developing a dependence or addiction if you: ? Have a history of depression or anxiety. ? Take higher doses of opioids. ? Have a history of using or abusing alcohol, tobacco or drugs (including prescription or street drugs). ? Have long-term (chronic) pain. ? Take opioids for longer than one week. ? Take more pills, more often than your doctor prescribed. ? Have a family history of addiction. If you feel you had a dependence or addiction to opioids prior to being admitted to the hospital, talk to your doctor. What are potential risks of taking opioids? Tolerance You need more and more of the opioid to get the same effect. Dependence Addiction Overdose Hyperalgesia You may have withdrawal symptoms if you suddenly stop taking opioids or reduce the dose. You can't stop using the drug even if the opioid causes negative or harmful results. You took more than your body can handle, which can cause slowed breathing and sudden . Your pain may worsen or become more diffcuh to control with long-term opioid use. Helpful phone numbers Poison control: Substance abuse and mental health services: d.608.815.HELP (7154) Suicide prevention: 881.671.TALK (8956) Name KAYLYNN SANDOVAL 02/26/2023 1 1 :55 Destini [id number] 07:50:04 Images from the original note were not included. 26 Preventing Surgical Site Infection After Surgery Wash your hands Wash your hands after using the bathroom, before and after eating, after coughing or sneezing, after using a tissue, after touching or changing a dressing bandage, or after touching any object or surface that may be contaminated. Clean environment Use freshly laundered sheets, blankets, towels, and washcloths. Wear freshly laundered loose fitting clothes to avoid rubbing on the incision Medications Even if you feel better, if you were given antibiotics, take them until they are finished or your healthcare provider tells you to stop. Incision and drain care ? Keep your incision clean and dry. Unless instructed otherwise, it is okay to wash the skin around your incision with soap and water. Ask your surgeon when you can shower or bathe. ? If you have a dressing over your incision or a drain, follow your doctor's instructions. If dressing gets soiled or soaked, call your surgeon. ? Avoid swimming or sitting in the bathtub, pool, or hot tub until your incision is closed. ? Avoid picking, scratching, or pulling at your incision. ? When coughing or sneezing (abdominal or chest procedures) hold a pillow against your incision with both hands. This is called "splinting." Doing this helps protect your incision and decreases discomfort. ? Do not use lotions, oils, or creams on your incision unless prescribed. ? Try to avoid bumping your incision to prevent injury. Ask for help if unsteady or weak. Diabetes If you are diabetic, recommended target blood sugar is 110-150 (for cardiac surgery patients, target blood sugar is <180) for proper wound healing. If your blood sugar is not in control, contact your Primary Care Provider. Smoking If you are a smoker or exposed to secondhand smoke, consider quitting smoking and speak with your physician. Smoking increases the chance that your bones and tissue may not heal well, and the surgical area may have pain after surgery. Pets If you have pets, it is recommended that you do not sleep with or allow your pet on your lap or against your incision until it is healed. Pet skin or fur and saliva can also have germs that could cause infection. Follow-up care Follow up with your healthcare provider with questions or as advised. If you have any symptoms of an infection, such as redness and pain at the surgery site, drainage or fever, call your surgeon immediately. We are committed to your health and safety--we are here for you. [id number] 07[facility]50:03 Images from the original note were not included. [id number] Discharge Instructions: After Your Surgery You?ve just had surgery. During surgery, you were given medicine called anesthesia to keep you relaxed and free of pain. After surgery, you may have some pain or nausea. This is common. Here are some tips for feeling better and getting well after surgery. Going home Your healthcare provider will show you how to take care of yourself when you go home. They'll also answer your questions. Have an adult family member or friend drive you home. For the first 24 hours after your surgery: ? Don't drive or use heavy equipment. ? Don't make important decisions or sign legal papers. ? Take medicines as directed. ? Don't drink alcohol. ? Have someone stay with you, if needed. They can watch for problems and help keep you safe. Be sure to go to all follow-up visits with your healthcare provider. And rest after your surgery for as long as your provider tells you to. Coping with pain If you have pain after surgery, pain medicine will help you feel better. Take it as directed, before pain becomes severe. Also, ask your healthcare provider or pharmacist about other ways to control pain. This might be with heat, ice, or relaxation. And follow any other instructions your surgeon or nurse gives you. Stay on schedule with your medicine. Tips for taking pain medicine To get the best relief possible, remember these points: ? Pain medicines can upset your stomach. Taking them with a little food may help. ? Most pain relievers taken by mouth need at least 20 to 30 minutes to start to work. ? Don't wait till your pain becomes severe before you take your medicine. Try to time your medicine so that you can take it before starting an activity. This might be before you get dressed, go for a walk, or sit down for dinner. ? Constipation is a common side effect of some pain medicines. Call your healthcare provider before taking any medicines, such as laxatives or stool softeners, to help ease constipation. Also ask if you should skip any foods. Drinking lots of fluids and eating foods, such as fruits and vegetables, that are high in fiber can also help. Remember, don't take laxatives unless your surgeon has prescribed them. ? Drinking alcohol and taking pain medicine can cause dizziness and slow your breathing. It can even be deadly. Don't drink alcohol while taking pain medicine. ? Pain medicine can make you react more slowly to things. Don't drive or run machinery while taking pain medicine. Your healthcare provider may tell you to take acetaminophen to help ease your pain. Ask them how much you're supposed to take each day. Acetaminophen or other pain relievers may interact with your prescription medicines or other mtnr-lfu-ibzbuul (OTC) medicines. Some prescription medicines have acetaminophen and other ingredients in them. Using both prescription and OTC acetaminophen for pain can cause you to accidentally overdose. Read the labels on your OTC medicines with care. This will help you to clearly know the list of ingredients, how much to take, and any warnings. It may also help you not take too much acetaminophen. If you have questions or don't understand the information, ask your pharmacist or healthcare provider to explain it to you before you take the OTC medicine. Managing nausea Some people have an upset stomach (nausea) after surgery. This is often because of anesthesia, pain, or pain medicine, less movement of food in the stomach, or the stress of surgery. These tips will help you handle nausea and eat healthy foods as you get better. If you were on a special food plan before surgery, ask your healthcare provider if you should follow it while you get better. Check with your provider on how your eating should progress. It may depend on the surgery you had. These general tips may help: ? Don't push yourself to eat. Your body will tell you when to eat and how much. ? Start off with clear liquids and soup. They're easier to digest. ? Next try semi-solid foods as you feel ready. These include mashed potatoes, applesauce, and gelatin. ? Slowly move to solid foods. Don?t eat fatty, rich, or spicy foods at first. ? Don't force yourself to have 3 large meals a day. Instead eat smaller amounts more often. ? Take pain medicines with a small amount of solid food, such as crackers or toast. This helps prevent nausea. When to call your healthcare provider Call your healthcare provider right away if you have any of these: ? You still have too much pain, or the pain gets worse, after taking the medicine. The medicine may not be strong enough. Or there may be a complication from the surgery. ? You feel too sleepy, dizzy, or groggy. The medicine may be too strong. ? Side effects, such as nausea or vomiting. Your healthcare provider may advise taking other medicines to treat these or may change your treatment plan.. ? Skin changes, such as rash, itching, or hives. This may mean you have an allergic reaction. Your provider may advise taking other medicines. ? The incision looks different (for instance, part of it opens up). ? Bleeding or fluid leaking from the incision site, and you weren't told to expect that. ? Fever of 100.4?F (38?C) or higher, or as directed by your healthcare provider. Call 911 Call 911 right away if you have: ? Trouble breathing ? Facial swelling If you have obstructive sleep apnea You were given anesthesia medicine during surgery to keep you comfortable and free of pain. After surgery, you may have more apnea spells because of this medicine and other medicines you were given. The spells may last longer than normal. At home: ? Keep using the continuous positive airway pressure (CPAP) device when you sleep. Unless your healthcare provider tells you not to, use it when you sleep, day or night. CPAP is a common device used to treat obstructive sleep apnea. ? Talk with your provider before taking any pain medicine, muscle relaxants, or sedatives. Your provider will tell you about the possible dangers of taking these medicines. ? Contact your provider if your sleeping changes a lot even when taking medicines as directed. Last Reviewed Date: 2023 00:00:00 ? 3136-2052 [employer]. All rights reserved. This information is not intended as a substitute for professional medical care. Always follow your healthcare professional's instructions. [id number] 20:00:00 The patient is Moderately Stable - Low risk of patient condition declining or worsening The patient's goals for the shift include safety, meds , tolerate t The clinical goals for the shift include safety , meds Problem: Gastrointestinal - Adult Goal: Minimal or absence of nausea and vomiting Outcome: Progressing Goal: Maintains or returns to baseline bowel function Outcome: Progressing Goal: Maintains adequate nutritional intake Outcome: Progressing Problem: Metabolic/Fluid and Electrolytes - Adult Goal: Electrolytes maintained within normal limits Outcome: Progressing Goal: Hemodynamic stability and optimal renal function maintained Outcome: Progressing Goal: Glucose maintained within prescribed range Outcome: Progressing Problem: Pain - Adult Goal: Verbalizes/displays adequate comfort level or baseline comfort level Outcome: Progressing Problem: Safety - Adult Goal: Free from fall injury Outcome: Progressing Problem: Discharge Planning Goal: Discharge to home or other facility with appropriate resources Outcome: Progressing Problem: Chronic Conditions and Co-morbidities Goal: Patient's chronic conditions and co-morbidity symptoms are monitored and maintained or improved Outcome: Progressing [facility]2025-09-15 18:30:00 Report called to Adilene CHAPMAN on . Belongings with patient. Transported via w/c by transportation also with [facility] [id number] 17:56:11 The patient is Moderately Stable - Low risk of patient condition declining or worsening The patient's goals for the shift include safety, meds , tolerate t The clinical goals for the shift include safety , meds Over the shift, the patient did not make progress toward the following goals. Barriers to progression include gallbladder abnormal , testing . Recommendations to address these barriers include surgery . [facility] [id number] 11:45:44 Recommend INPATIENT based on review of notes, laboratory studies, vital signs, imaging, and nursing notes available as of 02/05/2025 11:45 AM. This is an 59 y.o. year old male who presented to the hospital on 02/03/2025 at 1055. Initial diagnosis on presentation was: Choking sensation [R09.89] Esophagitis [K20.90] JASPREET (acute kidney injury) (HCC) [N17.9] Intractable nausea and vomiting [R11.2] Abdominal pain, unspecified abdominal location [R10.9] Nausea and vomiting, unspecified vomiting type [R11.2]. Procedures Performed: * Cannot find OR case * CURRENT LENGTH OF STAY INPATIENT: 0. PAYOR: Payor: [employer] / Plan: [employer] OON / Product Type: Health Exchange / RATIONALE: IP reasonable - ongoing abd pain even after egd showing gastritis with n/v requiring multiple daily doses iv reglan/antiemetics. Signif. Jaspreet gfr 35 on admission now 95 with ivf. Surgery eval pending now. Dw team. Gloria Yee MD Case Management Manager Asset Management Family [facility] PhysicianMemoriSaint Camillus Medical [id number] 03:53:15 The patient is Moderately Stable - Low risk of patient condition declining or worsening The patient's goals for the shift include stable vital signs and and control of N/V The clinical goals for the shift include stable vital signs and and control of N/V Problem: Gastrointestinal - Adult Goal: Minimal or absence of nausea and vomiting Outcome: Progressing Goal: Maintains or returns to baseline bowel function Outcome: Progressing Goal: Maintains adequate nutritional intake Outcome: Progressing Problem: Metabolic/Fluid and Electrolytes - Adult Goal: Electrolytes maintained within normal limits Outcome: Progressing Goal: Hemodynamic stability and optimal renal function maintained Outcome: Progressing Goal: Glucose maintained within prescribed range Outcome: Progressing Problem: Pain - Adult Goal: Verbalizes/displays adequate comfort level or baseline comfort level Outcome: Progressing Problem: Safety - Adult Goal: Free from fall injury Outcome: Progressing Problem: Discharge Planning Goal: Discharge to home or other facility with appropriate resources Outcome: Progressing Problem: Chronic Conditions and Co-morbidities Goal: Patient's chronic conditions and co-morbidity symptoms are monitored and maintained or improved Outcome: [facility]ing [id number]00 Problem: Gastrointestinal - Adult Goal: Minimal or absence of nausea and vomiting Outcome: Progressing Goal: Maintains or returns to baseline bowel function Outcome: Progressing Goal: Maintains adequate nutritional intake Outcome: Progressing Problem: Metabolic/Fluid and Electrolytes - Adult Goal: Electrolytes maintained within normal limits Outcome: Progressing Goal: Hemodynamic stability and optimal renal function maintained Outcome: Progressing Goal: Glucose maintained within prescribed range Outcome: Progressing Problem: Pain - Adult Goal: Verbalizes/displays adequate comfort level or baseline comfort level Outcome: Progressing Problem: Safety - Adult Goal: Free from fall injury Outcome: Progressing Problem: Discharge Planning Goal: Discharge to home or other facility with appropriate resources Outcome: Progressing Problem: Chronic Conditions and Co-morbidities Goal: Patient's chronic conditions and co-morbidity symptoms are monitored and maintained or improved Outcome: Progressing The patient is Moderately Stable - Low risk of patient condition declining or worsening The patient's goals for the shift include stable vital signs and and control of N/V The clinical goals for the shift include stable vital signs and and control of N/V [facility]:23:21 The patient is Moderately Stable - Low risk of patient condition declining or worsening The patient's goals for the shift include stable vital signs and and control of N/V The clinical goals for the shift include stable vital signs and and control of N/V Problem: Gastrointestinal - Adult Goal: Minimal or absence of nausea and vomiting Outcome: Progressing Goal: Maintains or returns to baseline bowel function Outcome: Progressing Goal: Maintains adequate nutritional intake Outcome: Progressing Problem: Metabolic/Fluid and Electrolytes - Adult Goal: Electrolytes maintained within normal limits Outcome: Progressing Goal: Hemodynamic stability and optimal renal function maintained Outcome: Progressing Goal: Glucose maintained within prescribed range Outcome: Progressing Problem: Pain - Adult Goal: Verbalizes/displays adequate comfort level or baseline comfort level Outcome: Progressing Problem: Safety - Adult Goal: Free from fall injury Outcome: Progressing Problem: Discharge Planning Goal: Discharge to home or other facility with appropriate resources Outcome: Progressing Problem: Chronic Conditions and Co-morbidities Goal: Patient's chronic conditions and co-morbidity symptoms are monitored and maintained or improved Outcome: Progressing [facility]2025-09-13 10:31:00 HPI Chief Complaint: Patient presents with Vomiting belching History of Present Illness: 59-year-old male with past medical history of GERD and prediabetes presenting with nausea and vomiting. Symptoms started 2 weeks ago. Vomitus is nonbloody nonbilious. Patient denies fevers, chills, diarrhea, dysuria, hematuria, or abdominal pain. Patient denies any sick contacts, recent travel, or eating anything questionable. No other complaints at this time. History provided by: Patient Patient History ROS Review of Systems: Review of Systems Constitutional: Negative for chills, fatigue and fever. HENT: Negative for ear pain, rhinorrhea and sore throat. Eyes: Negative for pain and visual disturbance. Respiratory: Negative for cough and shortness of breath. Cardiovascular: Negative for chest pain and palpitations. Gastrointestinal: Positive for nausea and vomiting. Negative for abdominal pain, blood in stool and diarrhea. Genitourinary: Negative for dysuria and hematuria. Musculoskeletal: Negative for back pain and neck pain. Skin: Negative for rash. Neurological: Negative for dizziness, seizures and headaches. PREVIOUS HISTORY No past medical history on file. Prediabetes, GERD No past surgical history on file. Hernia repair No family history on file. Social History: Tobacco Use Smoking status: Never Smokeless tobacco: Never Substance Use Topics Alcohol use: Never Drug use: Not on file No Known Allergies Current Outpatient Medications Medication Instructions chlorproMAZINE (THORAZINE) 10 mg, As needed dicyclomine (BENTYL) 20 mg, 4 times daily PRN ondansetron (Zofran) 4 MG tablet 1 tablet, Every 6 hours during day pantoprazole (PROTONIX) 40 mg, Daily before breakfast PHYSICAL EXAM Triage Vitals: BP: (!) 145/103, Heart Rate: 93, Temp: 36.8 ?C (98.3 ?F), Resp: 20, SpO2: 98 %, Height: 154.9 cm (5' 1"), Weight: 75.8 kg (167 lb 1.7 oz) Last Recorded Vitals: BP: 128/83, Heart Rate: 65, Temp: 36.8 ?C (98.3 ?F), Resp: 18, SpO2: 99 %, Height: 154.9 cm (5' 1"), Weight: 75.8 kg (167 lb 1.7 oz) Physical Exam: Vitals and nursing note reviewed. Constitutional: General: He is not in acute distress. Appearance: Normal appearance. HENT: Head: Normocephalic and atraumatic. Nose: Nose normal. Mouth/Throat: Mouth: Mucous membranes are moist. Eyes: Extraocular Movements: Extraocular movements intact. Conjunctiva/sclera: Conjunctivae normal. Cardiovascular: Rate and Rhythm: Normal rate and regular rhythm. Comments: Normal peripheral perfusion Pulmonary: Effort: Pulmonary effort is normal. No respiratory distress. Breath sounds: Normal breath sounds. Abdominal: General: Bowel sounds are normal. There is no distension. Palpations: Abdomen is soft. Tenderness: There is no abdominal tenderness. Musculoskeletal: General: No tenderness or deformity. Normal range of motion. Cervical back: Normal range of motion and neck supple. Skin: General: Skin is warm and dry. Neurological: Mental Status: He is alert and oriented to person, place, and time. Mental status is at baseline. Psychiatric: Mood and Affect: Mood normal. MDM Differential Diagnosis: Small bowel obstruction, GERD, peptic ulcer disease, acute cholecystitis, appendicitis, diverticulitis, food poisoning, gastroenteritis Patient presents to the ED with nausea and vomiting. Physical exam as noted above. Based on the patient's presentation, there is a very wide differential diagnosis; please refer to differential diagnosis above. This patient presents with a problem that potentially represents a highly morbid condition with a possible threat to life or bodily function. Additional history was required and obtained from: Prior documentation/lab results/imaging reviewed include: Inpatient record previous hospitalization for abdominal pain Care has been affected by the following chronic conditions: GERD, prediabetes Social Determinants of Health (SDOH) that affect patient: [] low health literacy [] low income/unemployed/non-resourced (no health insurance)/food insecure [] unreliable transportation/incarceration [] language barriers [] addiction/substance abuse Patient management: [x] I considered whether hospitalization and/or emergent surgery/procedure is appropriate for this patient [] Patient was administered controlled parenteral medications and/or medications requiring intensive monitoring [] Decision not to resuscitate or to deescalate care because of poor prognosis Diagnostics: [x] Tests were ordered and results were independently reviewed and interpreted by me Labs ordered and reviewed: Labs Reviewed COMPREHENSIVE METABOLIC PANEL - Abnormal Result Value Sodium Lvl 133 (*) Potassium Lvl 2.9 (*) Chloride Lvl 93 (*) CO2 Lvl 26.1 Anion Gap 16.8 Glucose Lvl 150 (*) Creatinine Lvl 2.14 (*) BUN 22 B/C Ratio 10 Protein 9.7 (*) Albumin Lvl 5.1 (*) Globulin, Calc 4.6 (*) Albumin/Globulin Ratio 1.11 Calcium Lvl 10.3 ALT 28 AST 36 Alkaline Phosphatase 116 Bilirubin Total 1.41 (*) eGFR 35 (*) UA WITH CULTURE IF INDICATED - Abnormal UA Color Ayla (*) UA Turbidity Slight Cloudy (*) UA Spec Grav 1.027 UA pH 5.0 UA Protein 100 (*) UA Glucose Negative UA Ketones Negative UA Bilirubin Negative UA Blood Negative UA Urobilinogen 2.0 (*) UA Nitrite Negative UA Leuk Esterase Negative UA Ascorbic Acid 40 (*) UA Sq Epi Occasional UA WBC 2 UA RBC (Num) 5 (*) UA Mucus Few UA Hyaline Casts 103 (*) COMPLETE BLOOD COUNT - Abnormal WBC 14.69 (*) RBC 5.11 NRBC % 0.0 Hgb 16.4 Hct 47.0 MCV 92.0 MCH 32.1 MCHC 34.9 RDW - SD 43.6 (*) Plt Count 502 (*) MPV 9.1 AUTOMATED DIFFERENTIAL - Abnormal Segs % 77.3 (*) Lymphs % 10.2 (*) Monos % 11.8 Eos % 0.1 (*) Basos % 0.2 Immature Grans % 0.4 Segs # 11.35 (*) Lymphs # 1.50 Monos # 1.73 (*) Eos # 0.02 Basos # 0.03 Imm Grans # 0.06 PROTIME-INR - Normal Prothrombin Time (PT) 13.6 INR 1.02 PTT - Normal PTT 26.4 LIPASE LEVEL - Normal Lipase Lvl 49 COMPLETE BLOOD COUNT W/DIFF AND PLATELET Narrative: The following orders were created for panel order Complete Blood Count w/Diff and Platelet. Procedure Abnormality Status --------- ------ Complete Blood Count[[id number]] Abnormal Final result Automated Differential[[id number]] Abnormal Final result Please view results for these tests on the individual orders. Radiology interpretations for studies ordered and reviewed: US gallbladder Final Result 1. Multiple mobile gallstones seen, the largest measuring 1 cm. Some gallstones seen in the gallbladder neck region. Shadowing seen in the gallbladder fundus region, which correlates with the suspected gallbladder wall calcification on the CT. No gallbladder wall thickening or pericholecystic fluid seen. No sonographic evidence of acute cholecystitis. No biliary ductal dilatation. 2. Mild to moderate heterogeneous increased liver parenchymal echotexture, suggestive of fatty infiltration of the liver. SL: [id number] Electronically signed by: Ashish Solitario MD 02/03/2025 02:[address] ABDOMEN PELVIS W IV CONTRAST Final Result 1. 3. Moderately distended stomach and distal esophagus with fluid, consistent with gastroesophageal reflux. 2. Mildly distended gallbladder. Tiny gallstone seen. Some curvilinear calcifications of the gallbladder fundus seen. Sonography may be performed, if there is further clinical concern. 3. Mild descending and moderate proximal sigmoid colonic diverticulosis, without CT evidence of diverticulitis. 4. Other nonacute findings, as noted above. Some motion artifact seen, which limits evaluation. SL: [id number] Electronically signed by: Ashish Solitario MD 02/03/2025 12:27 PM CDT RP I discussed case with another physician/clinician: [] Radiologist: [] Explosive Ordnance Disposal Technician: [x] Hospitalist: Dr. Cali [] Behavioral health specialist/Case management/Social work Scoring Tools: Scoring Tools Medications Administered: Medications potassium chloride IVPB 10 mEq (10 mEq Intravenous New Bag 02/03/25 1332) sodium chloride 0.9 % bolus 1,000 mL (0 mL Intravenous Stopped 02/03/25 1158) famotidine (Pepcid) injection 20 mg (20 mg Intravenous Given 02/03/25 1058) ondansetron (Zofran) injection 4 mg (4 mg Intravenous Given 02/03/25 1058) magnesium sulfate in D5W IVPB 1 g (0 g Intravenous Stopped 02/03/25 1317) iohexol (OMNIPaque) 350 MG/ML injection 75 mL (75 mL Intravenous Given 02/03/25 1154) ondansetron (Zofran) injection 4 mg (4 mg Intravenous Given 02/03/25 1211) sodium chloride 0.9 % bolus 500 mL (500 mL Intravenous New Bag 02/03/25 1243) ED Course: ED Course: as of 02/03/25 1436 Sat Feb 03, 2025 1406 Hypokalemia 2.9. Creatinine 2.14, up from baseline of less than 1. Leukocytosis 14.6. Otherwise labs grossly unremarkable. CT abdomen/pelvis with gallstones but otherwise negative for any acute findings. Right upper quadrant ultrasound was performed but is pending final read. Potassium repleted along with magnesium. Given significant bump in creatinine, I reviewed findings with the patient and recommended admission to the hospital. The patient is in agreement with plan. Case discussed with Dr. Cali who accepted admission. [DK] 1436 Ultrasound negative for acute cholecystitis. Dr. Cali was updated of ultrasound findings. [DK] ED Course: User Index [DK] Baljit Aguillon MD Diagnoses as of 02/03/25 1436 Nausea and vomiting, unspecified vomiting type JASPREET (acute kidney injury) (HCC) PROCEDURES Procedures DISPOSITION Diagnosis: 1. Nausea and vomiting, unspecified vomiting type 2. JASPREET (acute kidney injury) (HCC) Condition: Guarded Diposition: Admit/Observation Prescriptions: New Prescriptions No medications on file Follow up: No follow-up provider specified. Baljit Aguillon MD 02/03/25 1417 Baljit Aguillon MD 02/03/25 1437 [facility] [id number] 10:25:10* Consultation (Routine) - Pending Review Specialty Diagnoses / Procedures Referred By [facility] Referred To Contact Gastroenterology Diagnoses Generalized abdominal [place] [address] [facility] [address], [place] [address] Phone: tel: [place]: [place] [address] [address] Phone: tel: fax: Referral ID Status Reason Start Date Expiration Date Visits Requested Visits Authorized [id number] Pending Review Specialty Services Required 12/10/2024 12/05/2025 1 1 * Consultation (Routine) - Pending Review Specialty Diagnoses / Procedures Referred By [facility] Referred To Contact Family Medicine Diagnoses Generalized abdominal [place] [address] [facility] [address] [place] [address] Phone: tel: fax: Referral ID Status Reason Start Date Expiration Date Visits Requested Visits Authorized [id number] Pending Review Specialty Services Required 12/10/2024 12/05/2025 1 1 [facility] [id number] 10:25:10* * Auth/Cert (Routine) Specialty Diagnoses / Procedures Referred By [facility] Referred To Contact Diagnoses Gallstones Calculus of gallbladder without cholecystitis without obstruction Intractable nausea and vomiting Procedures ELIGIBILITY AND BENEFITS ARE E VERIFIED AUTHORIZATION IS NOT REQUIRED FOR OBSERVATION STAY DOS 12/08/2024 [place] [address] [place] [address] Phone: tel: fax: [facility] ([address]) [address] [place] [address] Phone: tel: Referral ID Status Reason Start Date Expiration Date Visits Re quested Visits Authorized [id number] 1 1 [facility] [id number] 10:25:10* AUDIT-C Score Answer Date of Assessment Author 0 12/08/2024 8:00 PM CDT Milka Farah RN * * Calculated C-SSRS Risk Score (Lifetime/Recent) Answer Date of Assessment Author No Risk Indicated 12/08/2024 8:10 PM CDT Daen Montilla PMD * [place] Suicide Severity Rating Scale (Screener/Recent Self-Report) Question Answer Date of Assessment Author 1. Wish to be (Past 1 Month) No 025 8:10 PM CDT Dane Montilla PMFarida 2. Non-Specific Active Suici swetha Thoughts (Past 1 Month) No 12/08/2024 8:10 PM CDT Dane Montilla PMD 6. Suicidal Behavior (Lifetime) No 5 8:10 PM CDT Dane Montilla PMD [id number] 10:25:10* Carter Anderson MD - 12/10/2024 10:11 AM CDT Images from the original note were not included. [facility] Medicine Inpatient Discharge Summary Admitting Provider: Joe Aguirre MD Discharge Provider: Carter Anderson MD Primary Care Physician at Discharge: Lisa Daniel MD [phone] Admission Date: 12/08/2024 Discharge Date: 12/10/2024 Discharge Diagnoses Patient Active Problem List Diagnosis Nausea and vomiting Abdominal pain Diverticulosis Intractable nausea and vomiting Cholelithiasis Gall bladder polyp Gastritis Choking sensation Esophagitis Hypokalemia Physical Exam Vitals: 12/10/24 0727 BP: Pulse: 63 Resp: 18 Temp: SpO2: 98% General: Not in acute distress HEENT: Normocephalic atraumatic Chest: Clear to auscultation bilaterally, no wheezing or rhonchi Heart: Regular rate and rhythm, no murmurs Abdomen: Soft, nontender, nondistended, positive bowel sounds Extremities: Warm, no pedal edema Neuro: Alert, oriented x 3, Psych: No agitation or hallucination Presenting ProblemGallstones [K80.20] Calculus of gallbladder without cholecystitis without obstruction [K80.20] Intractable nausea and vomiting [R11.2] Hospital CoursePedro Feldman is a 59 y.o. male with past medical history of gastritis, recently diagnosed gallstones, history of complicated diverticulitis s/p laparotomy repair in 1989, presenting to the ED with chief complaints of intermittent abdominal pain, N/V for the past 11 months, he had 2 EGDs done which revealed esophagitis, hiatal hernia and gastritis. In the past 2 weeks he had worsening symptoms of nausea, vomiting and cramping epigastric abdominal pain. He additionally reports " choking sensation" and "foreign body sensation" In the ED he was hypertensive otherwise stable vitals, labs were normal electrolytes, LFTs, CBC unremarkable, urinalysis without UTI, CT abdomen with no acute pathology. Mild to moderate sigmoid colonic diverticulosis seen without evidence of diverticulitis. Small dependent calcified gallstones. Ultrasound of the gallbladder revealed gallbladder polyp and hepatosteatosis. Patient was seen by both GI and GS. Esophageal barium swallow test showed mild intermittent gastroesophageal reflux. No esophageal mucosal abnormality. No evidence of achalasia. No acute intraabdominal abnormality identified, GI and GS recommended outpatient follow up. Treatment TeamAttending Provider: Carter Anderson MD [phone] Consulting Physician: Lindsay Anaya MD [phone] Consulting Physician: Morro Robledo MD [phone] Admitting Provider: Joe Aguirre MD [phone] DispositionHome [1] Your medication list START taking these medications Instructions Last Dose Given Next Dose Duebenzocaine-menthol 6-10 MG lozenge Commonly known as: Chloraseptic Dissolve 1 lozenge in the mouth every 2 hours if needed for sore throat. CONTINUE taking these medications Instructions Last Dose Given Next Dose Duebaclofen 5 MG tablet Commonly known as: Lioresal Take 1 tablet by mouth at bedtime. chlorproMAZINE 10 MG tabletCommonly known as: Thorazine dicyclomine 20 MG tablet Commonly known as: Bentyl ondansetron 4 MG tablet Commonly known as: Zofran pantoprazole 40 MG EC tablet Commonly known as: ProtoNix Where to Get Your Medications These medications were sent to [id number] - [place], [place] [facility] [address] [facility] [address] [facility] [address], [place] [address] qkqbyeap 5 MG tablet benzocaine-menthol 6-10 MG lozenge [place] [address] [facility] [address] [facility] [address] [place] [address] No follow-ups on file. Total time spent on Discharge 35 minutes Carter Anderson MDHospitalist [facility] [id number] 10:25:10* Morro Robledo MD - 12/10/2024 9:14 AM CDT Upper GI was normal. Patient denies any nausea vomiting or abdominal pain. He was able to tolerate regular diet yesterday. Overall feels well. Objective Physical Exam: Visit Vitals BP 117/65 Pulse 63 Temp 36.6 ?C (97.8 ?F) Resp 18 Body mass index is 29.32 kg/m?. Vitals and nursing note reviewed. Constitutional: In NAD, normal appearance. Not ill-appearing or toxic-appearing. Head: Atraumatic. Eyes: PERRL ENT: Clear Pulmonary: CTAB, No respiratory distress. No stridor. CV: RRR, s1s2 Abdominal: Soft nontender nondistended Neurological: No focal deficits Extremities: No c/c/e Psychiatric: Mood and Affect: Normal Derm: No ulcers or rash Lymphatics: No LAD noted. Labs: Results from last 7 days Lab Units 12/10/24 0547 12/09/24 0639 12/08/24 1836 WBC 10*3/uL 7.13 7.46 10.02 HEMOGLOBIN g/dL 12.0* 12.4 14.4 HEMATOCRIT % 35.0* 36.4* 42.2 PLATELETS 10*3/uL 262 288 370 Results from last 7 days Lab Units 12/10/24 0547 12/09/24 1148 12/09/24 0639 12/09/24 0624 12/08/24 1836 SODIUM mEq/L 141 -- 139 -- 137 POTASSIUM mEq/L 3.7 -- 3.0* -- 3.9 CHLORIDE mEq/L 112* -- 105 -- 100 CO2 mEq/L 23.4 -- 28.9 -- 31.1* BUN mg/dL <7* -- <7* -- 8* CREATININE mg/dL 0.67* -- 0.79 -- 1.03 CALCIUM mg/dL 7.7* -- 8.0* -- 9.5 PROTEIN TOTAL g/dL 5.9 -- -- -- 8.2 BILIRUBIN TOTAL mg/dL 0.38 -- -- -- 0.78 ALK PHOS U/L 74 -- -- -- 101 ALT U/L 15 -- -- -- 21 AST U/L 19 -- -- -- 27 POC GLUCOSE mg/dL -- 110* -- < > -- GLUCOSE mg/dL 108* -- 112* -- 104* LIPASE U/L -- -- -- -- 33 < > = values in this interval not displayed. Diagnostic Imaging: FL esophagus barium swallow Narrative: EXAM: FL ESOPHAGUS BARIUM SWALLOW DATE: 12/09/2024 11:46 AM CDT. INDICATION: Achalasia? COMPARISON: CT abdomen pelvis 12/08/2024. TECHNIQUE: Barium esophagram was performed using double contrast technique. FLUOROSCOPY Time: 1.05 min. Air Kerma: 37.5 mGy Exposures: 57. FINDINGS: Swallowing: Normal. No penetration or aspiration. Esophagus: * Motility: Mild distal esophageal dysmotility. * Anatomy: No filling defects, mucosal irregularities, obstructions or extrinsic compressions identified. Hiatal hernia: None. Gastroesophageal reflux: Mild intermittent reflux. Visualized portions of the stomach and duodenum appeared within normal limits Impression: Mild intermittent gastroesophageal reflux. No esophageal mucosal abnormality. No evidence of achalasia. Electronically signed by: Kristian Moss MD 12/09/2024 12:12 PM CDT Inpatient Medications: baclofen, 5 mg, Oral, Nightly docusate sodium, 100 mg, Oral, BID enoxaparin, 40 mg, Subcutaneous, Daily pantoprazole, 40 mg, Intravenous, q12h EFRAÍN Sod Bicarb-Citric Ac-Simeth, 4 g, Oral, Once sodium chloride, 10 mL, Intravenous, q12h Assessment & PlanIntractable nausea and vomiting Nausea and vomiting Abdominal pain Diverticulosis Cholelithiasis Gall bladder polyp Gastritis Choking sensation Esophagitis Hypokalemia Nausea, vomiting, regurgitation PlanUpper GI was normal Patient tolerated regular diet All of the imaging and lab work are normal From GI standpoint he can be discharged with close follow-up as an outpatient with his primary GI Dr Camila Main. Family members are concerned regarding nausea vomiting and inability to tolerate oral intake that brought him to the hospital, he is asymptomatic here, he can be discharged with Zofran 3 times daily and Reglan 3 times daily as needed for 7 days * Rosio Limon CCC-COST ACCOUNTING ANALYST - 12/09/2024 3:01 PM CDT Images from the original note were not included. Evaluation/Treatment Note Patient Name: Pedro Feldman Today's Date: 12/09/2024 Time In: 1256 Time Out: 1304 Preferred Language: Portuguese Assessment & Plan Assessment: Prognosis: Good Session Tolerance: Patient tolerated session well Strengths: Ability to acquire knowledge Assessment Comments: Pt endorsed no symptoms of dysphagia and showed no s/sx of aspiration at the bedside, though silent aspiration cannot be ruled out. No changes to speech or cognition noted. No further acute st services warranted, pls reconsult if acute changes to speech/cognition/swallowing are noted. Per results of barium esophogram, no aspiration or penetration was noted. Plan: Treatment Plan/Goals Established with Patient/Caregiver: Yes COST ACCOUNTING ANALYST Plan: No skilled COST ACCOUNTING ANALYST No Skilled COST ACCOUNTING ANALYST: Functional with swallowing, Functional with communication Frequency: None COST ACCOUNTING ANALYST - OK to Discharge: Yes NPO: No Swallow Precautions: Upright to 90 degrees Solid Consistency: Regular Liquid Viscosity: Thin Liquids Carbonated Liquids Only: No Medications: As tolerated Supervision Recommended: None Compensatory Strategies for Dysphagia: Oral hygiene, Position as upright as possible during oral intake Subjective Pt in bed upon enlisted aircrew/aerial observer/gunner entrance agreeable to CSE. Current Problem: Vomiting, Nausea Objective Pain: Pain Assessment Pain Assessment: Putnam-Bernabe FACES Pain Rating Scale (DVPRS): Notice pain, does not interfere with activities Pain Type: Acute pain Pain Location: Abdomen Pain Orientation: Mid RN Notified. Isolation: Standard Precautions Oxygen: RA Vital Signs: BP 133/72 | Pulse 53 | Temp 36.6 ?C (97.9 ?F) | Resp 18 | Ht 1.676 m (5' 6") | Wt 82.4 kg (181 lb 10.5 oz) | SpO2 100% | BMI 29.32 kg/m? General: Patient Medical History Reviewed: Yes Medical History Comments: Per EMR, Pedro Feldman is a 59 y.o. male with past medical history of gastritis, recently diagnosed gallstones, history of complicated diverticulitis s/p laparotomy [id number] presenting to the ED with chief complaints of abdominal pain, N/V. Patient reports symptoms have been ongoing for the past 11 months, he had 2 EGDs done which revealed esophagitis, hiatal hernia and gastritis. In the past 2 weeks he had worsening symptoms of nausea, vomiting and cramping epigastric abdominal pain. No aggravating or relieving factors. Denies any fever, chills, diarrhea, constipation. No recent travel or sick contacts. He additionally reports " choking sensation" and "foreign body sensation" He was scheduled for an outpatient speech therapy evaluation ordered by PCP. In the ED he was hypertensive otherwise stable vitals, labs were normal electrolytes, LFTs, CBC unremarkable, urinalysis without UTI, CT abdomen with no acute pathology. Mild to moderate sigmoid colonic diverticulosis seen without evidence of diverticulitis. Small dependent calcified gallstones. Ultrasound of the gallbladder revealed gallbladder polyp and hepatosteatosis. Patient admitted to medicine for further evaluation. Additional Individuals Present: Yes Others Present: Vision Status: WFL Hearing Status: WFL Location: Bedside Oral/Motor: Dentition: Adequate Face: Within Functional Limits Jaw: Within Functional Limits Lips: Within Functional Limits Tongue: Within Functional Limits Soft Palate: Within Functional Limits Larynx: Within Functional Limits Involuntary Muscular Movement: Absent Swallow Assessment: Consistencies Assessed Consistencies Assessed: Yes Swallowing Overview - Liquids0 - Thin Liquid: WFL Swallowing Overview - Solids4 - Pureed: WFL 7 - Regular: WFL Clinical Swallow EvaluationPatient Positioning: Upright Previous History of Dysphagia?: No Inability to Follow One Step Directions?: No Tracheostomy Present: No Inability to Manage Their Secretions?: No Incomplete Lingual ROM?: No Incomplete Facial Symmetry (Facial Droop)?: No Voice Change During Swallowing Trials?: No Abnormal/Weak Volitional Cough?: No Cough/Throat Clear w/ Trial Consistency?: No Dysphonia (Quality and/or Pitch Change)?: No Motor Speech Disorder (Dysarthria/Apraxia)?: No Apraxia of the Swallow Suspected?: No Delayed Swallow Suspected?: No Multiple Swallows Per Bolus Suspected?: No Tongue Pumping Suspected?: No Clinical Swallow Evaluation Comments: Pt did not show overt s/sx of aspiration/dysphagia throughout evaluation, however, silent aspiration cannot be ruled out. Skilled st services are not warranted as pt endorsed no swallowing difficulty Cognitive-Linguistic Functioning:Overall Cognitive Status: Within Functional Limits Behavior/Cognition: Alert Orientation Level: Oriented X4 Patient Education: Education Documentation Results of Exam, taught by MARTIN Cohen at 12/09/2024 3:00 PM. Learner: Family, Patient Readiness: Eager Method: Explanation Response: Verbalizes Understanding Education CommentsNo comments found. International Dysphagia Diet Standardization Initiative - IDDSI Liquids - 0 - Thin Solids - 7 - Regular IDDSI Level - 8 Treatment Note: If this is the last documented treatment, then it will signify discharge from acute care prior to discharge from the therapy service and will serve as the discharge summary. MARTIN Cohen * Carter Anderson MD - 12/09/2024 11:34 AM CDT Images from the original note were not included. HOSPITAL MEDICINE PROGRESS NOTE Patient: Pedro Feldman Hospital Day: 2 Subjective Patient reported sore throat, otherwise, no abdominal pain, Objective Last Recorded Vitals Vitals: 12/09/24 0338 12/09/24 0737 12/09/24 0737 12/09/24 0738 BP: 124/68 Pulse: 62 56 Resp: 18 18 Temp: 36.7 ?C (98.1 ?F) SpO2: 100% 98% Temp: [36.3 ?C (97.3 ?F)-36.9 ?C (98.4 ?F)] 36.7 ?C (98.1 ?F) Heart Rate: [56-78] 56 Resp: [18-20] 18 BP: (120-165)/(68-94) 124/68 Intake/Output Summary (Last 24 hours) at 12/09/2024 1134 Last data filed at 12/08/2024 2143 Gross per 24 hour Intake 1000 ml Output -- Net 1000 ml General: Not in acute distress HEENT: Normocephalic atraumatic Chest: Clear to auscultation bilaterally, no wheezing or rhonchi Heart: Regular rate and rhythm, no murmurs Abdomen: Soft, nontender, nondistended, positive bowel sounds Extremities: Warm, no pedal edema Neuro: Alert, oriented x 3, Psych: No agitation or hallucination Medications: baclofen, 5 mg, Oral, Nightly docusate sodium, 100 mg, Oral, BID pantoprazole, 40 mg, Intravenous, q12h EFRAÍN potassium chloride, 10 mEq, Intravenous, q1h sodium chloride, 10 mL, Intravenous, q12h dextrose 5 % and sodium chloride 0.9 %, 100 mL/hr, Last Rate: 100 mL/hr (12/09/24 0933) PRN medications: acetaminophen, chlorproMAZINE, dextrose, dextrose, dicyclomine, glucagon, HYDROcodone-acetaminophen, melatonin, morphine, naloxone, ondansetron, polyethylene glycol (PEG) 3350, [COMPLETED] Insert peripheral IV AND [COMPLETED] Saline lock IV AND sodium chloride, sodium chloride, sodium chloride, sucralfate Diagnostic Results Labs: Results from last 7 days Lab Units 12/09/24 0639 12/08/24 1836 SODIUM mEq/L 139 137 POTASSIUM mEq/L 3.0* 3.9 CHLORIDE mEq/L 105 100 CO2 mEq/L 28.9 31.1* BUN mg/dL <7* 8* CREATININE mg/dL 0.79 1.03 CALCIUM mg/dL 8.0* 9.5 PROTEIN TOTAL g/dL -- 8.2 BILIRUBIN TOTAL mg/dL -- 0.78 ALK PHOS U/L -- 101 ALT U/L -- 21 AST U/L -- 27 Results from last 7 days Lab Units 12/09/24 0639 HEMOGLOBIN A1C % 5.27 Results from last 7 days Lab Units 12/09/24 0639 12/09/24 0624 12/08/24 1836 POC GLUCOSE mg/dL -- 117* -- GLUCOSE mg/dL 112* -- 104* Results from last 7 days Lab Units 12/09/24 0639 12/08/24 1836 WBC 10*3/uL 7.46 10.02 HEMOGLOBIN g/dL 12.4 14.4 HEMATOCRIT % 36.4* 42.2 PLATELETS 10*3/uL 288 370 LYMPHOCYTES % 16.0 14.8* MONOCYTES % 9.8 8.9 ASSESSMENT: Pedro Feldman is a 59 y.o. male with past medical history of gastritis, recently diagnosed gallstones, history of complicated diverticulitis s/p laparotomy repair in 1989, presenting to the ED with chief complaints of intermittent abdominal pain, N/V for the past 11 months, he had 2 EGDs done which revealed esophagitis, hiatal hernia and gastritis. In the past 2 weeks he had worsening symptoms of nausea, vomiting and cramping epigastric abdominal pain. He additionally reports " choking sensation" and "foreign body sensation" In the ED he was hypertensive otherwise stable vitals, labs were normal electrolytes, LFTs, CBC unremarkable, urinalysis without UTI, CT abdomen with no acute pathology. Mild to moderate sigmoid colonic diverticulosis seen without evidence of diverticulitis. Small dependent calcified gallstones. Ultrasound of the gallbladder revealed gallbladder polyp and hepatosteatosis. Patient admitted to medicine for further evaluation. Seen by GS, no IP surgical intervention, barium x ray pending, GI consulted. Assessment & PlanIntractable nausea and vomiting Abdominal pain Unclear etiology, ? Gastritis/esophagitis ?symptomatic cholelithiasis. Patient is currently on follow-up with GI. He had 2 endoscopies done in the past year which revealed esophagitis/PUD (No reports available). Symptoms have been ongoing for the past 11 months and worsened in the past [address] abdomen, ultrasound reviewed as above. Of note, patient has history of complicated diverticulitis status postrepair in 1989. CT abdomen also revealed diverticulosis without evidence of diverticulitis. Labs are unremarkable Given persistent symptoms, surgery consulted in the ED (Dr. Anaya), no surgical intervention right now GI consulted to follow up Cholelithiasis Gall bladder polyp Ultrasound reviewed, no evidence of cholecystitis Surgery on board will defer further imaging HIDA scan to surgery Diverticulosis Known history, will continue laxatives Gastritis Esophagitis Continue PPIs, GI cocktail, sucralfate GI consult Choking sensation Patient reports choking sensation and foreign body sensation, possibly in the setting of esophagitis Speech therapy evaluation GI on board Hypokalemia Replaced Current Diet: NPO Diet NPO except: Ice chips, Sips of clear liquids, Sips with meds VTE prophylaxis: Lovenox Code Status: Full Code Disposition:OBS Carter Anderson MDHospitalist [facility]2025-07-20 10:25:10Pending Results Scheduled Orders Name Type Priority Associated Diagnoses Order Schedule Oxygen Therapy - Patient Type: Adult; Device: Nasal Cannula; SpO2 Goals (select one): General: > or equal to 92%; Follow Respiratory Pathway: Yes Respiratory Care STAT For RT frequenc y use only for continuous procedures with task-based reminders at 8a and 8p until discontinued starting 12/08/2024 POCT Glucose Point of Care Testing - Docked Device Routine Every 15 minutes as needed until discontinued starting 12/08/2024 Complete Blood Count w/Diff and Platelet Lab Routine Morning draw (Lab) for 5 Occurrences starting 12/10/2024 until 12/14/2024, 1 completed Comprehensive Metabolic Panel Lab Routine Morning draw (La b) for 5 Occurrences starting 12/10/2024 until 12/14/2024, 1 completed Scheduled Referrals Name Type Priority Associated Diagnoses Order Schedule Ambulatory referral to Family Practice Outpatient Referral Routine Generalized abdominal pain Choking sensation Expected: 12/10/2024 (Approximate), Expires: 12/10/2025 Ambulatory referral to Gastroenterology Outpatient Referral Routine Generalized abdominal pain Choking sensation Expected: 12/24/2024 (Approximate), Expires: 12/10/2025 Health Maintenance Due Date Last Done Comments CT Colonography 1964 Colonoscopy 1965 Colorectal Cancer Screening 1965 FIT-DNA 1964 FIT 1965 FOBT 1965 Sigmoidoscopy 1965 Annual Physical 07/23/1967 DTaP/Tdap/Td Vaccines (1 - Tdap) 07/23/1983 Pneumococcal Vaccine: 50+ Years (1 of 1 - PCV) 2014 Hepatitis B Vaccines (2 of 3 - Hep B Twinrix 3-dose series) 09/29/2023 09/01/2023 Influenza Vaccine (#1) 2025 07/09/2019 Lipid Panel 12/09/2029 12/09/2024 Respiratory Syncytial Virus (RSV) Adult Series (1 - 1-dose 75+ series) 07/23/2039 Zoster Vaccines Completed 01/02/2023, 06/12/2022 Hepatitis A Vaccines Aged Out 09/01/2023 No long er eligible based on patient's age to complete this topic HIB Vaccines Aged Out No longer eligi ble based on patient's age to complete this topic HPV Vaccines Aged Out No longer eligi ble based on patient's age to complete this topic IPV Vaccines Aged Out No longer eligi ble based on patient's age to complete this topic Meningococcal Vaccine Aged Out No link tamar eligible based on patient's age to complete this topic Pneumococcal Vaccine: Pediatrics (0 to 5 Years) and At-Risk Patients (6 to 64 Years) Aged Out No longer eligible b ased on patient's age to complete this topic Rotavirus Vaccines Aged Out No longer eligible based on patient's age to complete this topic [id number] 10:25:10 Diagnosis Intractable nausea and vomit ing - Primary Calculus of gallbladder with out cholecystitis without obstruction Intractable nausea and vomit ing Gallstones Calculus of gallbladder without mention of cholecystitis or obstruction Generalized abdominal pain Abdominal pain, generalized Choking sensation Other symptoms involving head and neck Nausea and vomiting Nausea with vomiting Abdominal pain Abdominal pain, unspecified site Diverticulosis Diverticulosis of colon (without mention of hemorrhage) Cholelithiasis Calculus of gallbladder without mention of cholecystitis or obstruction Gall bladder polyp Cholesterolosis of gallbladder Gastritis Unspecified gastritis and gastroduodenitis without mention of hemorrhage Choking sensation Other symptoms involving head and neck Esophagitis Unspecified esophagitis Hypokalemia Hypopotassemia [facility] [id number] 10:25:10 [facility] HospitalCgjehgq5547-27-07 10:02:08 Images from the original note were not included. [id number] Nonspecific Vomiting and Diarrhea (Adult) Vomiting and diarrhea can have many causes, including: ? Helping your body get rid of harmful substances. ? Gastroenteritis caused by viruses, parasites, bacteria, or toxins. ? Allergy to or side effect of a food or medicine. ? Severe stress or worry (anxiety). ? Other illnesses. ? . It's often hard to pinpoint an exact cause, even with testing. Vomiting and diarrhea often go away within a day or two without problems. But if these symptoms continue, it may lead to too much loss of fluid (dehydration). This can be serious if not treated. Home care Medicines ? You may use acetaminophen or nonsteroidal anti-inflammatory drugs (NSAID). These include ibuprofen or naproxen to control fever, unless another medicine was prescribed. If you have chronic liver or kidney disease, talk with your provider before using these medicines. Talk with your provider if you've had a stomach ulcer or gastrointestinal bleeding. Don't give aspirin to anyone under 18 years of age who is ill with a fever. It may cause a serious illness called Catalina's syndrome that may result in severe disease or even . Don't use NSAIDs if you are already taking one for another condition (like arthritis) or if you are taking aspirin (such as for heart disease or after a stroke) or a blood thinner. ? If you were prescribed medicine, take it as directed. Finish the prescription even if you feel better. ? Don't take anti-diarrhea or anti-vomiting medicines without asking your provider first. General care ? If symptoms are severe, rest at home for the next 24 hours, or until you are feeling better. ? Wash your hands with soap and clean, running water, or use alcohol-based hand laser beam color scanner operator. This is the best way to stop the spread of infection. Wash your hands after touching anyone who is sick. ? Wash your hands after using the toilet and before meals. Clean the toilet after each use. ? Dry your hands with a single-use disposable towel. ? Caffeine, tobacco, and alcohol can make the diarrhea, cramping, and pain worse. Remember, caffeine is not only in coffee. It's also is in chocolate, some energy drinks, some soft drinks, and teas. Diet ? Drinking water and clear liquids is important so you don't get dehydrated. Take a small amount at a time, but frequently. Don't gulp down the drinks. That may increase your nausea, make cramping worse, and cause the drinks to come back up. ? Sports drinks may help if you are healthy and not too dehydrated. But they have too much sugar and not enough electrolytes and can sometimes make things worse. And don't drink beverages that are too acidic, like orange juice and grape juice. ? If you are very dehydrated, products called an oral rehydration solution (ORS) may help. You can get them at most grocery stores and pharmacies. This drink contains a balanced amount of glucose (a sugar) and electrolytes (sodium, potassium, chloride). These substances are lost during vomiting and diarrhea. It is the best first-line treatment and is available over the counter. Food Follow these important tips: ? Don't force yourself to eat, especially if you have cramps, diarrhea, or vomiting. Eat just a little at a time, and then wait a few minutes before you try to eat more. ? Don't eat fatty, greasy, spicy, or fried foods. ? Don't eat dairy products if you have diarrhea. They can make it worse. During the first 24 hours (the first full day), follow this diet: ? Beverages: ORS, sports drinks, soft drinks without caffeine, mineral water, and decaffeinated tea and coffee. ? Soups: Clear broth, consomm? and bouillon. ? Desserts: Plain gelatin, ice pops, and fruit juice bars. During the next 24 hours (the second day), if you're feeling better, you may add: ? Hot cereal, plain toast, bread, rolls, crackers. ? Plain noodles, rice, mashed potatoes, chicken noodle or rice soup. ? Unsweetened canned fruit (avoid pineapple), bananas. ? Limited fats. Avoid margarine, butter, oils, mayonnaise, sauces, gravies, fried foods, peanut butter, meat, poultry, and fish. ? Limited fiber. Avoid raw or cooked vegetables, fresh fruits (except bananas), and bran cereals. ? Caffeine and chocolate, but limit these. ? Salt, but no other spices or seasonings. During the next 24 hours (the third day): ? Gradually resume a normal diet, as you feel better and your symptoms improve. ? If at any time your symptoms start getting worse again, go back to clear liquids until you feel better. Food preparation ? If you have diarrhea, do not prepare food for others. When preparing foods, wash your hands before and after. ? Wash your hands or use alcohol-based laser beam color scanner operator after using cutting boards, counter tops, and knives that have been in contact with raw food. ? Dry your hands with a single-use disposable towel. ? Keep uncooked meats away from cooked and rvnrq-te-[id number] foods. Follow-up care Follow up with your provider, or as advised. Call if you don't get better in the next 2 to 3 days. If a stool (diarrhea) sample was taken, or cultures done, you will be told if they are positive, or if your treatment needs to be changed. You may call, as directed, for the results. If X-rays were taken, you will be notified of any new findings that may affect your care. Call 911 Call 911 if: ? You have trouble breathing. ? You have chest pain. ? You have confusion. ? You're severely drowsy or have trouble waking up. ? You faint or lose consciousness. ? Your heart rate is rapid. ? You have a seizure. ? You have a stiff neck. ? You have severe weakness, dizziness, or lightheadedness. When to get medical advice Call your health care provider right away if: ? You have bloody or black vomit or stools (Seek medical care immediately if there is a lot of blood). ? You have severe, steady belly pain or any belly pain that is getting worse. ? You have a severe headache or stiff neck. ? You can't hold down even sips of liquids for more than 12 hours. ? You have vomiting that lasts more than 24 hours. ? You have diarrhea that lasts more than 24 hours. ? You have a fever of 100.4?F (38.0?C) or higher, or as directed by your provider. ? There's a yellowish color to your skin or the whites of your eyes. ? You show signs of dehydration, such as dry mouth, little urine (less than every 6 hours), or very dark urine. Last Reviewed Date: 2024 00:00:00 ? [id number] The [employer]. All rights reserved. This information is not intended as a substitute for professional medical care. Always follow your healthcare professional's instructions. Biju Galicia2025-07-20 10:02:01 Images from the original note were not included. 04149 Abdominal Pain Abdominal pain means pain in the stomach or belly area. Everyone has this kind of pain from time to time. In many cases, it goes away on its own. Some types of abdominal pain can be from a serious problem. One example is appendicitis. So it?s important to know when to get help. Causes of abdominal pain There are many causes of abdominal pain. Common causes in adults include: ? Constipation, diarrhea, or gas ? Stomach and intestine inflammation from a virus or bacteria (gastroenteritis) ? Stomach acid flowing back up into the esophagus (acid reflux) ? Severe acid reflux, called gastroesophageal reflux disease (GERD) ? A sore in the lining of the stomach or small intestine (peptic ulcer) ? Inflammation of the gallbladder, liver, or pancreas ? Gallstones or kidney stones ? Appendicitis ? Intestinal blockage ? An internal organ pushing through a muscle or other tissue (hernia) ? Urinary tract infections ? Menstrual cramps ? Fibroids in the uterus ? Ovarian cysts ? Pelvic inflammatory disease in women ? Endometriosis ? Crohn's disease ? Ulcerative colitis ? Irritable bowel syndrome Diagnosing the cause of abdominal pain Your healthcare provider will give you a physical exam. This is to help find the cause of your pain. If needed, you'll have tests. Belly pain has many possible causes. So it may take a little time to find the reason for your pain. Give details about the type of pain you feel. Tell your healthcare provider if it's sharp or dull. Tell them where and when you feel the pain. Tell them what makes it better or worse. And tell them if you have other symptoms such as: ? Fever ? Tiredness ? Upset stomach (nausea) ? Vomiting ? Changes in bathroom habits ? Blood in the stool or black, tarry stool ? Unexpected weight loss Tell your healthcare provider: ? If you have a family history of stomach or intestinal problems or cancer ? About your alcohol use and any illegal drug use ? All medicines you take, both prescription and [id number]-[id number] ? What vitamins, herbs, and other supplements you take Treating abdominal pain Some causes of pain need emergency medical care right away. These include appendicitis or a bowel blockage. Other problems can be treated with rest, fluids, or medicines. Your healthcare provider can give you instructions. You may need treatment or self-care based on what's causing your pain. If you have vomiting or diarrhea, sip water or other clear fluids. When you're ready to eat solid foods again, start lightly. Eat small amounts of rfrx-dk-[id number], low-fat foods. These include applesauce, toast, or crackers. Call 911 Call 911 right away if you: ? Can?t pass stool and are vomiting ? Are vomiting blood ? Have bloody diarrhea or black, tarry diarrhea ? Have chest, neck, or shoulder pain ? Feel like you might pass out (faint) ? Have pain in your shoulder blades and nausea ? Have sudden, severe belly pain ? Have new, severe pain unlike any you've felt before ? Have a belly that is rigid, hard, and hurts to touch When to call the healthcare provider Call your healthcare provider or seek medical care right away if you have any of these: ? Pain that's worse or not getting better ? Bloating that's worse or not getting better ? Diarrhea that's worse or not getting better ? Fever of 100.4?F (38?C) or higher, or as advised ? Weight loss for no reason ? Continued lack of appetite ? Blood in your stool How to prevent abdominal pain Here are some tips to help prevent abdominal pain: ? Eat smaller amounts of food at each meal. ? >Don't eat greasy, fried, or other high-fat foods. ? Don't eat foods that give you gas. ? Exercise regularly. ? Drink plenty of fluids. To help prevent GERD symptoms: ? Quit smoking. ? Reduce alcohol and foods that increase stomach acid. ? Don't use aspirin or nonsteroidal anti-inflammatory drugs (NSAIDs). ? Lose excess weight. ? Finish eating at least 2 hours before you go to bed or lie down. ? Raise the head of your bed. Last Reviewed Date: 2023 00:00:00 ? [id number] The [employer]. All rights reserved. This information is not intended as a substitute for professional medical care. Always follow your healthcare professional's instructions. [facility]2025-07-20 10:00:39 Problem: Pain - Adult Goal: Verbalizes/displays adequate comfort level or baseline comfort level Outcome: Adequate for Discharge [facility]2025-07-19 19:30:00 Problem: Pain - Adult Goal: Verbalizes/displays adequate comfort level or baseline comfort level Outcome: Ongoing Problem: Safety - Adult Goal: Free from fall injury Outcome: Ongoing Problem: Discharge Planning Goal: Discharge to home or other facility with appropriate resources Outcome: Ongoing Problem: Chronic Conditions and Co-morbidities Goal: Patient's chronic conditions and co-morbidity symptoms are monitored and maintained or improved Outcome: Ongoing Problem: Knowledge Deficit Goal: Patient/family/caregiver demonstrates understanding of disease process, treatment plan, medications, and discharge instructions Outcome: Ongoing Problem: Infection Goal: Signs and symptoms of infections are decreased or avoided Outcome: Ongoing Problem: Neurosensory - Adult Goal: Achieves stable or improved neurological status Outcome: Ongoing Goal: Absence of seizures Outcome: Ongoing Goal: Remains free of injury related to seizures activity Outcome: Ongoing Goal: Achieves maximal functionality and self care Outcome: Ongoing Problem: Respiratory - Adult Goal: Achieves optimal ventilation and oxygenation Outcome: Ongoing Problem: Cardiovascular - Adult Goal: Maintains optimal cardiac output and hemodynamic stability Outcome: Ongoing Goal: Absence of cardiac dysrhythmias or at baseline Outcome: Ongoing Problem: Skin/Tissue Integrity - Adult Goal: Skin integrity remains intact Outcome: Ongoing Goal: Incisions, wounds, or drain sites healing without S/S of infection Outcome: Ongoing Goal: Oral mucous membranes remain intact Outcome: Ongoing Problem: Musculoskeletal - Adult Goal: Return mobility to safest level of function Outcome: Ongoing Goal: Maintain proper alignment of affected body part Outcome: Ongoing Goal: Return ADL status to a safe level of function Outcome: Ongoing Problem: Gastrointestinal - Adult Goal: Minimal or absence of nausea and vomiting Outcome: Ongoing Goal: Maintains or returns to baseline bowel function Outcome: Ongoing Goal: Maintains adequate nutritional intake Outcome: Ongoing Goal: Establish and maintain optimal ostomy function Outcome: Ongoing Problem: Genitourinary - Adult Goal: Absence of urinary retention Outcome: Ongoing Goal: Urinary catheter remains patent Outcome: Ongoing Problem: Infection - Adult Goal: Absence of infection at discharge Outcome: Ongoing Goal: Absence of infection during hospitalization Outcome: Ongoing Goal: Absence of fever/infection during anticipated neutropenic period Outcome: Ongoing Problem: Metabolic/Fluid and Electrolytes - Adult Goal: Electrolytes maintained within normal limits Outcome: Ongoing Goal: Hemodynamic stability and optimal renal function maintained Outcome: Ongoing Goal: Glucose maintained within prescribed range Outcome: Ongoing Problem: Hematologic - Adult Goal: Maintains hematologic stability Outcome: Ongoing [facility]2025-07-19 14:48:05 Problem: Pain - Adult Goal: Verbalizes/displays adequate comfort level or baseline comfort level Outcome: [facility]ing [id number] The patient is Moderately Stable - Low risk of patient condition declining or worsening The patient's goals for the shift include Get well The clinical goals for the shift include Monitor vital signs, labs, medicate as ordrer Over the shift, the patient did not make progress toward the following goals. Barriers to progression include . Recommendations to address these barriers include . [facility] 17[facility]28:00 Associated Order(s): ECG 12 lead History of Present Illness: Chief Complaint: Patient presents with Vomiting X2 weeks, diagnosed with gallstones and GERD but still vomiting and burping Patient is a 59 y.o. male presenting to the emergency department due to Abdominal pain and vomiting and burping. Has gallstones. Has a stomach ulcer. Pain has been going on for 2 weeks. Pain is in RUQ and also LUQ. Pt has been vomiting x 2 weeks worse than usual, but has had similar symptoms (vomiting, pain) x 11 months. Went to [place] ER on Wednesday and was dx with hernia in chest and low potassium. Pt was prescribed medicine for vomiting but it's not working, still vomiting. 12/03/24 CT abd/pelvis: cholelithiasis, small type I hiatal hernia, small bilateral fat containing inguinal hernias. GI: Dr. Castellon in [place] PMHx stomach ulcer, gallstones Surgeries- ruptured colon from suspected diverticulitis 1990 caused laparotomy. Had surgery again 8 yrs ago for hernia Patient History : History reviewed. No pertinent past medical history. History reviewed. No pertinent surgical history. No family history on file. Social History: Tobacco Use Smoking status: Never Smokeless tobacco: Never Substance Use Topics Alcohol use: Not on file Drug use: Not on file Review of Systems: All systems negative except as mentioned in HPI. Physical Exam: Vitals and nursing note reviewed. Constitutional: General: He is not in acute distress. HENT: Head: Normocephalic. Pulmonary: Effort: No respiratory distress. Abdominal: Comments: General: There is no distension. Palpations: Abdomen is soft. Comments: Mild RUQ tenderness. No rebound or guarding. Musculoskeletal: General: No deformity. Cervical back: Neck supple. Skin: General: Skin is dry. Neurological: Mental Status: He is alert. Triage Vitals: BP: (!) 165/94, Heart Rate: 78, Temp: 36.6 ?C (97.8 ?F), Resp: 20, SpO2: 99 % Last Recorded Vitals: Vitals: 12/08/24 1734 BP: (!) 165/94 Pulse: 78 Resp: 20 Temp: 36.6 ?C (97.8 ?F) SpO2: 99% Procedures Performed: ECG 12 lead Performed by: PATRICIA Begum Authorized by: PATRICIA Begum Comments: 8:00pm. 61 bpm, NSR with sinus arrhythmia. LAD. Normal QTc. No ST elevation or depression. No T wave abnormality. Personally interpreted by me approximately 5 minutes after EKG was performed. Medical Decision Making PROBLEMS ADDRESSED [x] This patient presents with a problem that potentially represents a highly morbid condition with a possible threat to life, limb, or bodily function. I considered immediate life and limb threatening causes and excluded them based on either history and exam or by imaging and laboratory findings as clinically appropriate. Wide differential diagnosis was considered. DATA REVIEWED AND ANALYZED (2 out of 3 categories) Category 1: Test, documents, or independent historians Additional history obtained from: [] Family/Friends [] EMS [] PCP/Specialist [] Other: Prior documentation reviewed: [] Clinic [] Consultants [] DC summaries [] Procedure [] Other: Prior test results reviewed: [] Labs [] Radiographs [] Other: [x] Tests were ordered and the results were independently reviewed by me [] Tests considered but not ordered: Category 2: Independent interpretation of tests Tests were independently reviewed and interpreted by me [x] EKG (if checked, see Procedure section above for EKG interpretation) [x] X-ray non obstructive bowel gas pattern [] CT scan [] ultrasound [] Other: Category 3: Discussion of management with another professional [x] Explosive Ordnance Disposal Technician(s) Dr. Anaya, agrees to consult given cholelithiasis with intractable nausea/vomiting and persistent pain [x] Admitting service Dr. Aguirre , accepted for admission [] Radiology [] Behavioral Health [] Other: PATIENT MANAGEMENT [x] Considered hospitalization or emergent surgery/procedure [] Controlled parenteral medications or medications requiring intensive monitoring were administered [] Other: Diagnoses as of 12/08/242101 Intractable nausea and vomiting Gallstones CT ABDOMEN PELVIS W IV CONTRAST Final Result 1. No acute abdominal or pelvic abnormality on CT. 2. Mild descending and mild to moderate sigmoid colonic diverticulosis, without CT evidence of diverticulitis. 3. Small dependent calcified gallstones seen. No gallbladder wall thickening or pericholecystic fluid. These are not well seen on the recent gallbladder ultrasound. 4. Other nonacute findings, as noted above. SL: [id number] Electronically signed by: Ashish Solitario MD 12/08/2024 08:20 PM CDT RP US gallbladder Final Result 1. 0.5 cm probable gallbladder polyp. No definite stones. No sonographic evidence for acute cholecystitis. 2. Hepatic steatosis. Electronically signed by: Piedad Chang MD 12/08/2024 06:59 PM CDT RP XR abdomen 1 view Final Result 1. Nonobstructive bowel gas pattern. 2. Mild stool burden. Electronically signed by: Piedad Chang MD 12/08/2024 06:49 PM CDT RP Admission on 12/08/2024 Component Date Value Glucose Lvl 12/08/2024 104 (H) BUN 12/08/2024 8 (L) Creatinine Lvl 12/08/2024 1.03 Sodium Lvl 12/08/2024 137 Potassium Lvl 12/08/2024 3.9 Chloride Lvl 12/08/2024 100 CO2 Lvl 12/08/2024 31.1 (H) Anion Gap 12/08/2024 9.8 (L) Calcium Lvl 12/08/2024 9.5 eGFR 12/08/2024 83 Protein 12/08/2024 8.2 Albumin Lvl 12/08/2024 4.5 Bilirubin Total 12/08/2024 0.78 Bilirubin Direct 12/08/2024 0.2 Bilirubin Indirect 12/08/2024 0.6 Alkaline Phosphatase 12/08/2024 101 AST 12/08/2024 27 ALT 12/08/2024 21 Globulin, Calc 12/08/2024 3.7 Albumin/Globulin Ratio 12/08/2024 1.22 Lipase Lvl 12/08/2024 33 UA Color 12/08/2024 Yellow UA Turbidity 12/08/2024 Clear UA Spec Grav 12/08/2024 1.020 UA pH 12/08/2024 5.0 UA Protein 12/08/2024 Negative UA Glucose 12/08/2024 Negative UA Ketones 12/08/2024 Negative UA Bilirubin 12/08/2024 Negative UA Blood 12/08/2024 Negative UA Urobilinogen 12/08/2024 <=1.0 UA Nitrite 12/08/2024 Negative UA Leuk Esterase 12/08/2024 Negative UA Ascorbic Acid 12/08/2024 20 (A) UA Sq Epi 12/08/2024 None Seen UA WBC 12/08/2024 2 UA RBC (Num) 12/08/2024 <1 UA Bacteria 12/08/2024 Occasional UA Mucus 12/08/2024 Few UA Hyaline Casts 12/08/2024 1 HS Troponin I 12/08/2024 6 WBC 12/08/2024 10.02 RBC 12/08/2024 4.48 NRBC % 12/08/2024 0.0 Hgb 12/08/2024 14.4 Hct 12/08/2024 42.2 MCV 12/08/2024 94.2 MCH 12/08/2024 32.1 MCHC 12/08/2024 34.1 RDW - SD 12/08/2024 43.7 (H) Plt Count 12/08/2024 370 MPV 12/08/2024 9.0 Segs % 12/08/2024 75.1 Lymphs % 12/08/2024 14.8 (L) Monos % 12/08/2024 8.9 Eos % 12/08/2024 0.8 Basos % 12/08/2024 0.2 Immature Grans % 12/08/2024 0.2 Segs # 12/08/2024 7.53 (H) Lymphs # 12/08/2024 1.48 Monos # 12/08/2024 0.89 Eos # 12/08/2024 0.08 Basos # 12/08/2024 0.02 Imm Grans # 12/08/2024 0.02 DISPOSITION: Admit/Observation Impression: Final diagnoses: [R11.2] Intractable nausea and vomiting [K80.20] Gallstones Patient's case discussed with Dr. Baljit Aguillon MD;Joe Salinas* who developed, reviewed, and/or approved the plan of care. PATRICIA Begum 12/08/24 2102 59 yo M with PMH PUD and gall stones presenting with abdominal pain with N/V. Exam as noted above. Pt received morphine, Zofran, Pepcid, and IV fluid. I reviewed and interpreted labs and imaging myself. Labs and imaging results were reviewed with the pt. Plan for admission. Pt is in agreement with plan. All questions addressed. I performed the substantive portion of the visit. Medical Decision Making: For the problems addressed, I personally reviewed, developed, and/or approved the substantive portion of the plan and assessment as documented by the MAGDI above and take responsibility for the plan. Additionally, my independent interpretations of tests and discussion of management with external qualified health reproductive healthcare assistant include: Labs grossly unremarkable. KUB negative for any acute findings. CT scan negative for any acute findings. Ultrasound negative for acute cholecystitis. Dr. Anaya was consulted for gallstones. Discussed case with Dr. Aguirre who accepts admission. Baljit Aguillon MD 07/2307 Emergency Medicine PhysicianDestini [id number] 15:21:17 Pt discharged with diagnosis of generalized abd pain, hypokalemia, and N/V. Printed and verbal instructions reviewed with and given to pt. Prescriptions given x 2. Pt verbalized understanding of teaching, medications, and recommended follow-up. Denies questions or concerns at this time. Pt ambulatory at discharge. Appears in no apparent distress. No ataxia noted. Kiki Radford RNCommunity Regional Medical [id number] 12:06:59 CC: patient presents to the ER with complaints of abdominal pain and vomiting that originally began 11 months ago with this flair up beginning 2 weeks ago. Patient has an appointment to have a scope performed, states food is getting stuck in his throat causing his to vomit. Patient also reports belching. Awake, alert, oriented, resp reg unlabored, skin warm and dry, color appropriate for race, moves all ext without difficulty, amb without assistance. Appears in no distress. [facility] [id number] 14:56:00 Patient discharged to home. Patient given printed and verbal discharge instructions regarding diagnosis. Instructed to follow up with PCP. Patient verbalized understanding of instructions. Patient awake, alert, oriented, respirations even and unlabored, skin warm and dry, color appropriate for race. No adverse reaction to meds given in ER noted upon discharge. PIV removed. Discussed medications. Advised to seek medical attention for new/prolonged/worsening of symptoms, patient ambulated from unit with steady gait in no apparent distress. Ashley Bassett [facility] HealthQwjigi3296-25-19 12:08:00 Patient ambulatory to the restroom. [place] [id number] 11:23:[address] [place] [id number] 11:13:[address] [place] [id number] 10:08:43 Pedro Feldman is a 58 year old male presents to the ED A&Ox4 with nausea, vomiting since last week. Patient states that he has also been having heartburn off and on. Patient states that he was here about a month ago for a blockage in his intestines. Denies chest pain, SOB. Respirations even and unlabored. NAD. PMH: diverticulitis, ruptured colon. [place] [id number] 10:04:54 Pedro Feldman is a 58 year old male who presents with vomiting since last week. NAD. GCS 15. PMH: diverticulitis [facility] Leela Alonzo RNSte[place] [id number] 11:30:08 Problem: Discharge Planning Goal: Adequate for discharge 01/15/2024 1130 by Dian Fierro RN Outcome: Adequate for discharge 01/15/2024 0825 by Dian Fierro RN Outcome: Progressing as expected Goal: Effective communication 01/15/2024 1130 by Dian Fierro RN Outcome: Adequate for discharge 01/15/2024 0825 by Dian Fierro RN Outcome: Progressing as expected Problem: Falls, Risk of Goal: Absence of falls 01/15/2024 1130 by Dian Fierro RN Outcome: Adequate for discharge 01/15/2024 0825 by Dian Fierro RN Outcome: Progressing as expected Problem: Bowel Function - Altered Goal: Return to baseline elimination pattern 01/15/2024 1130 by Dian Fierro RN Outcome: Adequate for discharge 01/15/2024 0825 by Dian Fierro RN Outcome: Progressing as expected Problem: Glucose control Goal: Glucose level within specified parameters 01/15/2024 1130 by Dian Fierro RN Outcome: Adequate for discharge 01/15/2024 0825 by Dian Fierro RN Outcome: Progressing as expected Dian Fierro [id number] 08:25:34 Problem: Discharge Planning Goal: Adequate for discharge Outcome: Progressing as expected Goal: Effective communication Outcome: Progressing as expected Problem: Falls, Risk of Goal: Absence of falls Outcome: Progressing as expected Problem: Bowel Function - Altered Goal: Return to baseline elimination pattern Outcome: Progressing as expected Problem: Glucose control Goal: Glucose level within specified parameters Outcome: Progressing as expected [facility]2024-08-24 06:16:04 Telemetry called to notify about patient's drop in HR to the 30's. HR dropped during routine lab blood draw and was observed to be SR in the 60's afterwards. [facility] Lluvia Blankenship [facility] [id number] 21:16:45 Problem: Discharge Planning Goal: Adequate for discharge Outcome: Progressing as expected Goal: Effective communication Outcome: Progressing as expected Problem: Falls, Risk of Goal: Absence of falls Outcome: Progressing as expected Problem: Bowel Function - Altered Goal: Return to baseline elimination pattern Outcome: Progressing as expected Problem: Glucose control Goal: Glucose level within specified parameters Outcome: Progressing as expected [facility]2024-08-23 10:11:39 Problem: Discharge Planning Goal: Adequate for discharge Outcome: Progressing as expected Goal: Effective communication Outcome: Progressing as expected Problem: Falls, Risk of Goal: Absence of falls Outcome: Progressing as expected Problem: Bowel Function - Altered Goal: Return to baseline elimination pattern Outcome: Progressing as expected Problem: Glucose control Goal: Glucose level within specified parameters Outcome: Progressing as expected [facility]2024-08-22 21:26:23 Problem: Falls, Risk of Goal: Absence of falls Outcome: Progressing as expected Problem: Discharge Planning Goal: Adequate for discharge 01/13/20242126 by Jeannette Seals RN Outcome: Progressing as expected 01/13/20242125 by Jeannette Seals RN Outcome: Progressing as expected Goal: Effective communication 01/13/20242126 by Jeannette Seals RN Outcome: Progressing as expected 01/13/20242125 by Jeannette Seals RN Outcome: Progressing as expected [facility]2024-08-22 18:14:35 Pt trouble breathing, oxygen level 97. Also feeling of choking and hiccups. [place] [id number] 13:50:42 Report given to ARI Lombardi. Chief complaint, assessment findings and orders reviewed. Plan of care discussed with receiving nurse. Patient verbalized understanding. Deborah Luis [place] 24737-08-22 12:10:00 Pedro Feldman is a 58 year old male Pt presents with at side, c/o N/V for 3 weeks, pt unable to keep down food or water. Pt was seen in [facility] for same thing, given acid reflux meds with no resolve. NAD GCS15 AOX4 PMH: ruputered colon, abdominal hernia Laurita Torrez [place] 24737-08-22 11:30:00 Report received from Laurita; pt a and ox4, not in any distress [place] 38166-08-22 11:10:00 Report given to Deborah CHAPMAN T [place] 38166-08-22 09:21:30 Patient comes in with abdominal pain, and vomiting for the past week. Reports being seen a week ago and given acid reflux medication but it has not helped. Skin p/w/d, rr equal, and non labored. A&Ox4. Darling Juan [place] 488134-08-22 09:12:00 AdmissionCare Guideline: Intestinal Obstruction, Inpatient Based on the indications selected for the patient, the bed status of Inpatient was determined to be MET The following indications were selected as present at the time of evaluation of the patient: - Clinical Indications for Admission to Inpatient Care - Admission is indicated for ALL of the following: - Signs and symptoms of bowel obstruction (eg, vomiting, inability to tolerate PO intake, pain, distention) that are severe (feculent vomiting, Hypotension, electrolyte abnormality, evidence of bowel ischemia or suspected perforation), or persistent (eg, NG tube placed and will need to be continued, IV hydration support required) - Imaging study consistent with bowel obstruction (ie, alternative diagnosis not more likely) AdmissionCare documentation entered by: Yazmin Meng [facility], 28th edition, Copyright ? 2023 [facility] All Rights Reserved. [id number] [id number] 15:50:52 Patient given printed and verbal discharge instructions and verbalized understanding of instructions. Patient is awake alert oriented, respirations even & unlabored, skin warm & dry, color appropriate for race, moves all extremities well, patient encouraged to follow up with PCP and keep all appropriate appointments as otherwise scheduled or to return to ED for new, prolonged, or worsening of symptoms. No adverse reaction to meds given in ER noted upon discharge. PIV DC'd without complications, site appears healthy, hemostatic, pressure dressing applied to site, catheter intact. Patient departed ED ambulatory with steady gait accompanied by and in possession of all belongings. T Sera Christianson [id number] 15:00:00 Patient updated on POC and medicated per eMAR. Patient verbalized understanding. Pt resting in stretcher with at bedside, in NAD at this time. Stretcher locked in lowest position with side rails x2 raised and call light in reach [id number] 14:23:07 MD at bedside with patient T [place] [id number] 13:38:50 Patient transported via stretcher to room T [place] 38166-08-05 12:34:55 Patient off unit at T [place] [id number] 12:20:28 Pharmacy phoned, medication being prepped currently and pharmacy to tube once complete [place] [id number] 11:39:40 MD at bedside for US [place] [id number] 10:45:00 Pedro Feldman is a 58 year old male presenting to ED with cc of severe nausea x3 weeks. Endorses hiccups. Denies fever, chills, urinary changes, diarrhea, blood in stool/urine/emesis. Reports being seen in [place] yesterday for same cc. PMHx hernia repair 2016, diverticulitis, and GERD. Patient ambulatory to room with emesis bag and dry heaving. Pt aaox4, respirations e/u, skin w/d/I. Awaiting further updates [place] 93504-08-05 10:25:47 Pedro Feldman is a 58 year old male Patient arrives via personal means with complaint of vomiting X 3 weeks, intermittent hiccups. Pt was seen yesterday in [place] to Ed and was told he had gallstones. Pt says the vomiting is unbearable. Pt is actively vomiting in triage. Patient is alert and oriented times X 4, even and unlabored respirations visualized. Green pool due to saturation. Anita Jacobs [id number] 11:58:03 Patient Care Team <thead> Team Status: Active Member Role Status Dates LISA DANIEL MD primary care physician Active LARISSA THOMAS CNC SET UP OPERATOR-BUSINESS LIAISON MANAGER Attending Provider Active KAL LARIOS MD Emergency Provider Active ANGELIKA FELDMAN Next of Kin Active ANGELIKA FELDMAN Emergency Contact Active [facility] [id number] 11:58:03 [facility] [id number] 11:58:03 Follow up with your surgeon as discussed. Return emergency room for new or concerning symptoms. Otherwise follow up with your PCP in 2-3 days for colonoscopy as discussed. Future Tests Future scheduled test information is unavailable Pending Tests Pending diagnostic test information is unavailable Future Visits Future appointment information is unavailable Referrals to Other Providers <thead> Reason for Referral Referral Start Date Provider Provider Contact Information Provider Address LISA DANIEL MD Work Phone: [employer] [address] [address] Future Procedures <thead> Procedure Name Ordered Date Scheduled Date EKG,INITIAL December 26, 2023 8:17am December 252023 Electrocardiogram, Complete December 26, 2023 8:1 7am December 26, 2023 8:15am Future Medications Future medication information is unavailable Patient Instructions <tbody> Cholelithiasis, [id number] Diverticulosis [facility]
[2025-03-10] MEDS ORDERED: FAMOTIDINE 20 MG TAB ONE (17:32)
[2025-03-10] MEDS ORDERED: METHYLPREDNISOLONE 40 MG INJ ONE (17:32)
[2025-03-10] MEDS ORDERED: WATER FOR INJ,STERILE 10 ML ONE (17:34)
--- NOTE | 2025-03-10 18:04 | EDPHYS ---
Physician Documentation [facility] Name: Pedro Abraham Age: 59 yrs Sex: Male : 1965 Arrival Date: 03/10/2025 Time: 16:49 Bed 7 Private MD: KAUR Physician Panchito Orourke HPI: 03/10 17:44 This 59 yrs old Male presents to ER via Ambulatory with complaints of Allergic sb4 Reaction. 17:44 The patient presents with rash, of the face. Onset: The symptoms/episode began/occurred sb4 just prior to arrival. Associated signs and symptoms: The patient has no apparent associated signs or symptoms. Possible causes: shellfish. At home the patient or guardian has treated the symptoms with Benadryl. Severity of symptoms: At their worst the symptoms were mild. The patient has experienced a previous episode. Historical: - Allergies: 17:20 shrimp; me1 - PMHx: 17:20 SMALL BOWEL OBSTRUCTION; Gastroesophageal reflux disease; me1 - PSHx: 17:20 hernia repair; Cholecystectomy; me1 - Immunization history:: Adult Immunizations up to date. - Infectious Disease History:: Denies. - Social history:: Smoking status: Patient denies any tobacco usage or history of. ROS: 17:47 Constitutional: Negative for fever, chills, and weight loss, sb4 17:47 Skin: Positive for rash, of the face, 17:47 All other systems are negative, Exam: 17:47 Constitutional: This is a well developed, well nourished patient who is awake, alert, sb4 and in no acute distress. Head/Face: Normocephalic, atraumatic. Eyes: Extra-ocular motions intact. Periorbital areas with no swelling, redness, or edema. ENT: Mucous membranes moist. Cardiovascular: Regular rate and rhythm with a normal S1 and S2. Respiratory: No increased work of breathing, no retractions or nasal flaring. Skin: Warm, dry with normal turgor. Normal color with no rashes, no lesions, and no evidence of cellulitis. 17:47 ENT: Posterior pharynx: is normal, no acute changes, Airway: normal, no evidence of obstruction, patent, 17:47 Respiratory: Breath sounds: are clear throughout, Vital Signs: 17:18 BP 147 / 78; Pulse 63; Resp 18; Temp 98.4; Pulse Ox 100% ; Weight 76.2 kg; Height 5 ft. me1 2 in. ; Pain 0/10; 17:18 Body Mass Index 30.73 (76.20 kg, 157.48 cm) me1 17:18 Pain Scale: Adult me1 MDM: 17:04 Medical Screening Exam initiated sb4 17:48 Differential diagnosis: anaphylaxis, angioedema, Status Asthmaticus urticaria. sb4 18:09 Data reviewed: vital signs, nurses notes, and as a result, I will discharge patient. sb4 Counseling: I had a detailed discussion with the patient and/or guardian regarding the historical points, exam findings, and any diagnostic results supporting the discharge/admit diagnosis, the presence of at least one elevated blood pressure reading (>120/80) during this emergency department visit, the need for outpatient follow up, for definitive care, to return to the emergency department if symptoms worsen or persist or if there are any questions or concerns that arise at home. Special discussion: I discussed with the patient/guardian in detail that at this point there is no indication for admission to the hospital. It is understood, however, that if the symptoms persist or worsen the patient needs to return immediately for re-evaluation. Administered Medications: 17:40 Drug: MethylPREDNISolone Sodium Succinate IM 60 mg IM once Route: IM; Site: right kb4 gluteus; 18:27 Follow up: Response: No adverse reaction kb4 17:40 Drug: Famotidine PO 20 mg PO once Route: PO; kb4 18:27 Follow up: Response: No adverse reaction kb4 Disposition Summary: 03/10/25 18:03 Discharge Ordered Notes: Location: Home sb4 Problem: new sb4 Symptoms: have improved sb4 Condition: Stable sb4 Diagnosis - Allergy to seafood sb4 Followup: sb4 - With: Emergency Department - When: As needed - Reason: Trouble breathing, Worsening of condition Discharge Instructions: - Discharge Summary Sheet sb4 - Food Allergy sb4 - Seafood Allergy sb4 Forms: - Patient Portal Instructions sb4 - Leadership Thank You Letter sb4 Prescriptions: - epinephrine 0.1 mg/mL Injection Syringe - administer 1.5 milliliter SUBCUTANEOUS route every 10 minutes as needed for sb4 anaphylaxis; do not exceed 3 doses per episode; 3 Applicator; Refills: 0, Product Selection Permitted - Prednisone 20 mg Oral Tablet - take 1 tablet ORAL route once daily for 5 days; 5 tablet; Refills: 0, Product sb4 Selection Permitted Signatures: Mikayla Pedraza PA-C PA-C sb4 Grsi Angulo, RN RN me1 Eli Cain RN RN kb4
--- NOTE | 2025-03-10 18:04 | ER ---
Nurse's Notes [facility] Name: Pedro Abraham Age: 59 yrs Sex: Male : 1965 Arrival Date: 03/10/2025 Time: 16:49 Bed 7 Private MD: Diagnosis: Allergy to seafood Presentation: 03/10 17:18 Chief complaint: Patient states: he forgot he was allergic to shrimp and he ate 4 of me1 them about 1.5 hours ago. He took benadryl right after. Has rash to face but reports the itching has stopped. Denies sob. Denies throat swelling. Coronavirus screen: At this time, the client does not indicate any symptoms associated with coronavirus-19. Ebola Screen: No symptoms or risks identified at this time. Onset: The symptoms/episode began/occurred acutely. Anaphylaxis evaluation, no signs or symptoms of anaphylaxis were noted. Initial Sepsis Screen: Does the patient meet any 2 criteria? No. Patient's initial sepsis screen is negative. Does the patient have a suspected source of infection? No. Patient's initial sepsis screen is negative. Risk Assessment: Do you want to hurt yourself or someone else? Patient reports no desire to harm self or others. Onset of symptoms was March 10, 2025 at 16:00. 17:18 Method Of Arrival: [place] [facility] 17:18 Acuity: DANIEL 4 ri1 Triage Assessment: 17:20 General: Appears in no apparent distress. Behavior is calm, cooperative. kb4 Historical: - Allergies: 17:20 shrimp; me1 - PMHx: 17:20 SMALL BOWEL OBSTRUCTION; Gastroesophageal reflux disease; me1 - PSHx: 17:20 hernia repair; Cholecystectomy; me1 - Immunization history:: Adult Immunizations up to date. - Infectious Disease History:: Denies. - Social history:: Smoking status: Patient denies any tobacco usage or history of. Screenin:26 [facility] ED Fall Risk Assessment (Adult) History of falling in the last 3 months, kb4 including since admission No falls in past 3 months (0 pts) Confusion or Disorientation No (0 pts) Intoxicated or Sedated Yes (3 pts) Impaired Gait No (0 pts) Mobility Assist Device Used No (0 pt) Altered Elimination No (0 pt) Score/Fall Risk Level 0 - 2 = Low Risk. Abuse screen: Denies threats or abuse. Denies injuries from another. Nutritional screening: No deficits noted. Tuberculosis screening: No symptoms or risk factors identified. Assessment: 17:20 Pain: Denies pain. Respiratory: Airway is patent Respiratory effort is even, unlabored, kb4 Breath sounds are clear bilaterally. 17:20 Cardiovascular: Patient's skin is warm and dry. Derm: Skin is pink, warm \T\ dry. Skin kb4 temperature is warm. 18:25 Reassessment: Patient and/or family updated on plan of care and expected duration. Pain kb4 level reassessed. Patient is alert, oriented x 3, equal unlabored respirations, skin warm/dry/pink. Patient states feeling better. Vital Signs: 17:18 BP 147 / 78; Pulse 63; Resp 18; Temp 98.4; Pulse Ox 100% ; Weight 76.2 kg; Height 5 ft. me1 2 in. ; Pain 0/10; 17:18 Body Mass Index 30.73 (76.20 kg, 157.48 cm) me1 17:18 Pain Scale: Adult me1 ED Course: 16:59 Patient arrived in ED. cj3 17:01 Mikayla Pedraza PA-C is PHCP. sb4 17:01 Panchito Orourke MD is Attending Physician. sb4 17:20 Triage completed. me1 17:20 Arm band placed on Patient placed in an exam room. me1 17:29 Eli Cain, RN is Primary Nurse. kb4 18:26 Patient has correct armband on for positive identification. Provided Education on: kb4 shrimp allergy . 18:26 No provider procedures requiring assistance completed. Patient did not have IV access kb4 during this emergency room visit. Administered Medications: 17:40 Drug: MethylPREDNISolone Sodium Succinate IM 60 mg IM once Route: IM; Site: right kb4 gluteus; 18:27 Follow up: Response: No adverse reaction kb4 17:40 Drug: Famotidine PO 20 mg PO once Route: PO; kb4 18:27 Follow up: Response: No adverse reaction kb4 Medication: 18:27 VIS not applicable for this client. kb4 Outcome: 18:03 Discharge ordered by . sb4 18:33 Discharged to home ambulatory, kb4 18:33 Condition: good 18:33 Discharge instructions given to patient, family, Instructed on discharge instructions, follow up and referral plans. medication usage, Demonstrated understanding of instructions, follow-up care, medications, Prescriptions given X 2, 18:33 Patient left the ED. kb4 Signatures: Mikayla Pedraza PA-C PA-C sb4 Gris Angulo, RN RN me1 Eli Cain RN RN kb4 Michaela Jackson cj3
[2025-03-10 22:46] VITALS: BP 147/78; TEMP 98.4; O2SAT 100
== END 2025-03-10 18:33 | disposition home or self-care (01) ==
LOC: ER 16:49
DX: R21 Rash and other nonspecific skin eruption (principal); Z91.013 Allergy to seafood
CPT/HCPCS: 96372; 99284; J2919